=== PATIENT | female | born 1930 | race Caucasian/White ===

== ENCOUNTER 2016-10-03 12:49 | Emergency (ER) | payer MEDICARE, OTHER ==
--- NOTE | 2016-10-03 13:19 | ERPHSYRPT ---
- History of Present Illness Time Seen by Provider: 10/03/16 13:08 Source: patient, family Exam Limitations: no limitations Patient Subjective Stated Complaint: FELT SICK FOR COUPLE OF DAYS WITH URI. THIS AM GOT UP TO BATHROOM AND PASSED OUT. VOMTITED TIMES ONE Triage Nursing Assessment: TO ROOM PER EMS COT. SKIN W/D, BLANKETS UNDER PATIENT DAMP. COLOR PALE. RESP NONLABORED. A/O TIMES THREE. IV PER EMS LAF, 20 GA. SALINE AT TKO Physician History: The patient is an 86-year-old female with her daughter brought in by ambulance with syncopal episode. The patient has a productive cough for one to 2 days and a fever yesterday. She has severe arthritis. Today she wasn't feeling well and did not go to orthodox. She got up to go to the bathroom and her daughter heard her fall while she was in the bathroom. She apparently passed out while in the bathroom. She hit her left eyebrow breaking her glasses and cutting her left eyebrow. When she woke up she was very sweaty, nauseated, and then vomited once, and pale. She denies chest pain. She has states she feels much better. Her past medical history is significant for diverticulitis, hypertension, arthritis, gout, and right total hip replacement. Witnessed: unwitnessed Prior Episodes: single episode today, no prior history Timing/Duration: today Precipitating Factors: other (cough) Context: standing Loss of Consciousness: brief (seconds) Charcter of event(s): collapsed, became unresponsive Allergies/Adverse Reactions: codeine [Codeine] Allergy (Mild, Verified 10/03/16 12:58) Rash Penicillins Allergy (Unknown, Verified 10/03/16 12:58) RASH/UPSET STOMACH Sulfa (Sulfonamide Antibiotics) [Sulfa(Sulfonamide Antibiotics)] Allergy ( Unknown, Verified 10/03/16 12:58) Rash Home Medications: Simvastatin 10 mg [Zocor 10MG] 20 mg PO HS 10/10/11 [History] Amlodipine Besylate 2.5 mg PO DAILY 10/05/13 [History] Hydralazine HCl 50 mg PO TID 10/05/13 [History] Hydrocodone Bit/Acetaminophen [Hydrocodon-Acetaminoph 7.5-325] 1 tab PO Q4- 6HPRN PRN 10/05/13 [History] Lansoprazole [Prevacid 24Hr] 15 mg PO DAILY 10/05/13 [History] Allopurinol 100 mg [Zyloprim 100 mg] 100 mg PO DAILY 06/09/14 [History] Cyanocobalamin 1000 Mcg/ml [Cyanocobalamin B-12 1000 MCG/ML] 1,000 mcg IJ WEEKLY 06/09/14 [History] Carvedilol 12.5 mg [Coreg 12.5 mg] 12.5 mg PO BID 10/03/16 [History] Ergocalciferol (Vitamin D2) [Vitamin D] 50,000 unit PO WEEKLY 10/03/16 [History] Meloxicam 7.5 mg [Mobic 7.5 MG] 15 mg PO DAILY 10/03/16 [History] Spironolactone 25 mg [Aldactone 25 MG] 25 mg PO DAILY 10/03/16 [History] Hx Tetanus, Diphtheria Vaccination/Date Given: No Hx Influenza Vaccination/Date Given: Yes Hx Pneumococcal Vaccination/Date Given: Yes Immunizations Up to Date: No - Past Medical History Pertinent Past Medical History: Yes Neurological History: No Pertinent History ENT History: No Pertinent History Cardiac History: Hypertension Respiratory History: No Pertinent History Endocrine Medical History: No Pertinent History Musculoskeletal History: Osteoarthritis GI Medical History: Diverticulitis, GERD, Hernia History: Other Psycho-Social History: No Pertinent History Female Reproductive Disorders: No Pertinent History Other Medical History: R CHRISTINE 14 -15 YEARS AGO, HYSTERECTOMY - Past Surgical History Past Surgical History: Yes Neuro Surgical History: No Pertinent History Cardiac: No Pertinent History Respiratory: No Pertinent History Gastrointestinal: No Pertinent History Genitourinary: No Pertinent History Musculoskeletal: Joint Replacement Female Surgical History: Hysterectomy Other Surgical History: RIGHT HIP REPLACEMENT, BLADDER SLING - Social History Smoking Status: Never smoker Exposure to second hand smoke: No Alcohol Use: None Drug Use: none Patient Lives Alone: Yes Significant Family History: no pertinent family hx - Female History Hx Now: No - Review of Systems Constitutional: No Fever, No Chills Eyes: No Symptoms Ears, Nose, & Throat: No Symptoms Respiratory: Cough Cardiac: No Chest Pain, No Edema, No Syncope Abdominal/Gastrointestinal: Nausea, Vomiting Genitourinary Symptoms: No Dysuria Musculoskeletal: Arthralgias, Fall, Injury, No Back Pain, No Neck Pain Skin: Other (laceration) Neurological: No Dizziness, No Focal Weakness, No Sensory Changes Psychological: No Symptoms Endocrine: No Symptoms Hematologic/Lymphatic: No Symptoms Immunological/Allergic: No Symptoms All Other Systems: Reviewed and Negative Physical Exam - Nursing Vital Signs Nursing Vital Signs: Initial Vital Signs Temperature 98.3 F Temperature Source Oral Pulse Rate 77 Respiratory Rate 18 Blood Pressure [] 116/63 Pain Intensity 8 - Adan Coma Scale Best Eye Response ([place]): (4) open spontaneously Best Verbal Response ([place]): (5) oriented Best Motor Response (Adan): (6) obeys commands [place] Total: 15 - Physical Exam General Appearance: no apparent distress, alert Eye Exam: bilateral eye: normal inspection Ears, Nose, Throat Exam: normal ENT inspection, pharynx normal, moist mucous membranes Neck Exam: normal inspection, non-tender, supple, full range of motion Respiratory: wheezing Cardiovascular: regular rate/rhythm, capillary refill <2 sec, No murmur, No pulse deficit Gastrointestinal: soft, No tenderness, No distention, No mass Pelvic Exam: not done Rectal Exam: not done Back Exam: normal inspection, normal range of motion, No CVA tenderness, No vertebral tenderness Extremity Exam: normal inspection, normal range of motion, pelvis stable, No tenderness Mental Status: alert, oriented x 3, 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 activities 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 Exam: normal speech, PERRL, No facial droop Coordination/Gait: normal finger to nose Motor/Sensory: no motor deficit, no sensory deficit, no pronator drift Skin Exam: laceration (left eyebrow) SpO2 Interpretation: normal SpO2: 99 Oxygen Delivery: Room Air Procedures - Laceration/Wound Repair Left Face Wound Location: face (eyebrow) Wound Length (cm): 1 Wound's Depth, Shape: superficial Wound Explored: clean Irrigated: Yes Hibiclens Prep: Yes Wound Repaired With: Dermabond - Course EKG Interpreted by Me: RATE, Sinus Rhythm, NORMAL AXIS, NORMAL INTERVALS, NORMAL QRS, NORMAL ST-T - Radiology Exams Chest X-ray Interpretation: Interpreted by me, Negative (compared to CXR 09/03/11.) - CT Exams Cervical Spine CT Interpretation: Negative, Tele-radiologist Report, No Fracture (per Dr Epperson) Head CT Interpretation: Negative, Tele-radiologist Report, No Fracture, No/ Intracranial Hemorrhag (stable neg head per Dr Epperson) Ordered Tests: Active Orders 24 hr Category Date Time Status EKG-ER Only STAT Care 10/03/16 13:24 Active IV Insertion STAT Care 10/03/16 13:24 Active Pulse Oximetry (ED) STAT Care 10/03/16 13:24 Active Wound Care STAT Care 10/03/16 13:24 Active CERVICAL SPINE WO CONTRAST [CT] Stat Exams 10/03/16 13:25 Taken CHEST 2 VIEWS (PA AND LAT) Stat Exams 10/03/16 13:26 Taken HEAD WITHOUT CONTRAST [CT] Stat Exams 10/03/16 13:25 Taken CBC W DIFF Stat Lab 10/03/16 13:38 Completed CMP Stat Lab 10/03/16 13:38 Completed Ethyl Alcohol,Urine Stat Lab 10/03/16 15:00 Results PROTIME WITH INR Stat Lab 10/03/16 13:38 Completed TROPONIN Stat Lab 10/03/16 13:38 Completed UA Stat Lab 10/03/16 13:25 Completed Respiratory Nebulizer STAT RT 10/03/16 13:33 Completed Medication Summary Generic Name Dose Route Start Last Admin Trade Name Freq PRN Reason Stop Dose Admin Sodium Chloride 1,000 mls @ 100 mls/hr 10/03/16 13:30 10/03/16 13:32 Sodium Chloride 0.9% 1000 Ml IV 11/02/16 13:29 100 mls/hr .Q10H ARIAN Administration Discontinued Medications Generic Name Dose Route Start Last Admin Trade Name Freq PRN Reason Stop Dose Admin Albuterol Sulfate 2.5 mg 10/03/16 13:33 10/03/16 14:00 Proventil 2.5 Mg/3 Ml Neb IH 10/03/16 13:34 2.5 mg STAT ONE Administration Albuterol Sulfate Confirm 10/03/16 13:50 Proventil 2.5 Mg/3 Ml Neb Administered 10/03/16 13:51 Dose 2.5 mg IH .STK-MED ONE Methylprednisolone Sodium Succinate 125 mg 10/03/16 15:43 Solu-Medrol 125 Mg IV 10/03/16 15:44 STAT ONE Lab/Rad Data: Laboratory Result Diagrams 10/03/16 13:38 10/03/16 13:38 Laboratory Results 10/03/16 10/03/16 10/03/16 Range/Units 15:00 13:38 13:38 WBC (4.0-10.5) K/mm3 RBC (4.1-5.4) M/mm3 Hgb (12.0-16.0) gm/dl Hct (35-47) % MCV (78-100) fl MCH (26-32) pg MCHC (32-36) g/dl RDW (11.5-14.0) % Plt Count (150-450) K/mm3 MPV (6-9.5) fl Gran % (36.0-66.0) % Lymphocytes % (24.0-44.0) % Monocytes % (0.0-12.0) % Eosinophils % (0.00-5.0) % Basophils % (0.0-0.4) % Basophils # (0-0.4) INR 1.10 (0.8-3.0) Sodium (136-145) mEq/L Potassium (3.5-5.1) mEq/L Chloride (98-107) mEq/L Carbon Dioxide (21-32) mEq/L Anion Gap (5-15) MEQ/L BUN (9-20) mg/dL Creatinine (0.55-1.30) mg/dl Estimated GFR ML/MIN Glucose (70-110) MG/DL Calcium (8.5-10.1) mg/dL Total Bilirubin (0.2-1.0) mg/dL AST (15-37) U/L ALT (12-78) U/L Alkaline Phosphatase (46-116) U/L Troponin I < 0.017 (0.000-0.056) ng/ml Serum Total Protein (6.4-8.2) gm/dL Albumin (3.4-5.0) g/dL Ur Collection Type Urine Color (YELLOW) Urine Appearance (CLEAR) Urine pH Pending (5-6) Ur Specific [place] (1.005-1.025) Urine Protein (Negative) Urine Glucose (UA) (NEGATIVE) mg/dL Urine Ketones (NEGATIVE) Urine Nitrite (NEGATIVE) Urine Bilirubin (NEGATIVE) Urine Urobilinogen (0-1) mg/dL Urine WBC (Auto) (NEGATIVE) Urine RBC (Auto) (0-5) Josemanuel/ul Urine Ethyl Alcohol 1 (0.00-20) mg/dl Specimen Received 10/03/16 10/03/16 10/03/16 Range/Units 13:38 13:38 13:25 WBC 7.2 (4.0-10.5) K/mm3 RBC 3.66 L (4.1-5.4) M/mm3 Hgb 11.3 L (12.0-16.0) gm/dl Hct 35.2 (35-47) % MCV 96.2 (78-100) fl MCH 30.8 (26-32) pg MCHC 32.1 (32-36) g/dl RDW 14.8 H (11.5-14.0) % Plt Count 276 (150-450) K/mm3 MPV 10.4 H (6-9.5) fl Gran % 61.3 (36.0-66.0) % Lymphocytes % 29.6 (24.0-44.0) % Monocytes % 8.6 (0.0-12.0) % Eosinophils % 0.4 (0.00-5.0) % Basophils % 0.1 (0.0-0.4) % Basophils # 0.01 (0-0.4) INR (0.8-3.0) Sodium 136 (136-145) mEq/L Potassium 4.0 (3.5-5.1) mEq/L Chloride 98 (98-107) mEq/L Carbon Dioxide 23.2 (21-32) mEq/L Anion Gap 18.4 H (5-15) MEQ/L BUN 32 H (9-20) mg/dL Creatinine 1.49 H (0.55-1.30) mg/dl Estimated GFR 35 ML/MIN Glucose 126 H (70-110) MG/DL Calcium 9.3 (8.5-10.1) mg/dL Total Bilirubin 0.3 (0.2-1.0) mg/dL AST 19 (15-37) U/L ALT 18 (12-78) U/L Alkaline Phosphatase 64 (46-116) U/L Troponin I (0.000-0.056) ng/ml Serum Total Protein 7.4 (6.4-8.2) gm/dL Albumin 4.0 (3.4-5.0) g/dL Ur Collection Type CCMS Urine Color YELLOW (YELLOW) Urine Appearance CLEAR (CLEAR) Urine pH 5.0 (5-6) Ur Specific [place] 1.015 (1.005-1.025) Urine Protein NEGATIVE (Negative) Urine Glucose (UA) NEGATIVE (NEGATIVE) mg/dL Urine Ketones NEGATIVE (NEGATIVE) Urine Nitrite NEGATIVE (NEGATIVE) Urine Bilirubin NEGATIVE (NEGATIVE) Urine Urobilinogen 0.2 (0-1) mg/dL Urine WBC (Auto) NEGATIVE (NEGATIVE) Urine RBC (Auto) NEGATIVE (0-5) Josemanuel/ul Urine Ethyl Alcohol (0.00-20) mg/dl Specimen Received 10/03 8185 - Progress Progress: improved Counseled pt/family regarding: lab results, diagnosis, rad results - Departure Time of Disposition: 15:38 Departure Disposition: Home Clinical Impression: Syncope, Laceration, Wheezing Condition: Fair Critical Care Time: No Referrals: CONRADO VILLALTA MD [Primary Care Provider] - Additional Instructions: You had a syncopal episode at home that cause you to fall and cut her left eyebrow. We repaired your left eyebrow cut with Dermabond. You had wheezing in your lungs due to the upper respiratory infection. You were given an albuterol nebulizer treatment and Solu-Medrol 125 mg IV in the ER for the wheezing. Your given a prescription for a Z-Raffi. All of the lab tests, x-rays , and CT scans were unremarkable. Rest for the rest of the day. Follow-up as needed. Prescriptions: Azithromycin 250 mg [Zithromax 250 MG TABLET] 250 mg PO ZPACK #6 tablet
[2016-10-03] MEDS ORDERED: Sodium Chloride 0.9% 1000 ML 1,000 ML ONE (13:29)
[2016-10-03] MEDS ORDERED: Sodium Chloride 0.9% 1000 ML 1,000 ML IV SCH (13:30)
[2016-10-03] MEDS ORDERED: PROVENTIL 2.5 MG/3 ML NEB IH ONE ×2 (13:33→13:50)
[2016-10-03 13:42] LABS: BASOPHIL % 0.1 % (0.0-0.4); Eosinophil % 0.4 % (0.00-5.0); Granulocytes % 61.3 % (36.0-66.0); Lymphocytes % 29.6 % (24.0-44.0); Mean Cell Volume 96.2 fl (78-100); Mean Platelet Volume 10.4 fl (6-9.5); Monocytes % 8.6 % (0.0-12.0); Platelet Count 276 K/mm3 (150-450); Red Blood Count 3.66 M/mm3 (4.1-5.4); Red Cell Distribution Width 14.8 % (11.5-14.0); White Blood Count 7.2 K/mm3 (4.0-10.5)
[2016-10-03 14:00] LABS: INR 1.1 (0.8-3.0); PROTIME 12.3 SECONDS (9.95-12.35)
[2016-10-03 14:09] LABS: ANION GAP 18.4 MEQ/L (5-15); BILIRUBIN,TOTAL 0.3 mg/dL (0.2-1.0); Carbon Dioxide 23.2 mEq/L (21-32); Total Protein 7.4 gm/dL (6.4-8.2)
[2016-10-03 14:10] LABS: Mean Corpuscular Hemoglobin 30.8 pg (26-32)
[2016-10-03 15:10] LABS: Collection Type CCMS
[2016-10-03 15:11] LABS: COMPLETE URINE MICROSCOPIC? NO
[2016-10-03] MEDS ORDERED: solu-MEDROL 125 MG IV ONE (15:43)
[2016-10-03] MEDS ORDERED: solu-MEDROL 125 MG ONE (15:46)
[2016-10-03 16:02] VITALS: PULSE 76
[2016-10-03 16:15] VITALS: BP 115/67; O2SAT 98
--- NOTE | 2016-10-03 21:52 | XRAY ---
Indication: Fall. Comparison: June 09, 2014. PA/lateral chest hyperinflated today and clear. Heart is borderline enlarged. Descending aorta remains tortuous. Bony thorax intact again with mild osteopenia and degenerative changes. Impression: Nonacute hyperinflated chest with chronic features.
--- NOTE | 2016-10-03 21:57 | XRAY ---
Indication: Left head injury following fall. Possible loss of consciousness. Multiple contiguous axial images obtained through the cervical spine. Sagittal and coronal reformatted images obtained. Comparison: None Axial images negative for acute fracture, suspicious bony lesions, or spinal canal stenosis. Mild C4-C7 degenerative endplate spurring and mild bilateral C3-C4 degenerative facet arthropathy. Sagittal and coronal reformatted images demonstrate lordotic reversal, positional versus paraspinal spasm. Degenerative 2 mm C3 spondylolisthesis on C4. C4-C7 degenerative disc space narrowing. No acute compression fracture or jumped facet. Normal-appearing craniocervical junction. Visualized noncontrasted soft tissues including lung apices unremarkable. CT head reported separately. Impression: 1. Lordotic reversal, positional versus paraspinal spasm. 2. Multilevel degenerative disc disease including minimal grade 1 C3 degenerative spondylolisthesis. 3. Negative for acute fracture. CTDI 57.52
--- NOTE | 2016-10-03 22:05 | XRAY ---
Indication: Fall. Possible loss of consciousness. Multiple contiguous axial images obtained through the abdomen without contrast. Comparison: September 20, 2005. Stable age-appropriate global atrophy. No acute intracranial hemorrhage, abnormal extra-axial fluid collection, or mass effect. Fourth ventral is midline without hydrocephalus. Vinson-white matter differentiation preserved. Bony calvarium intact. There is now small right sphenoid sinus fluid leveling. Mastoid air cells are clear. Impression: 1. No acute intracranial abnormalities. 2. New right sphenoid sinus disease. CTDI 69.90
== END 2016-10-03 16:15 | disposition home or self-care (01) ==
LOC: ED 12:49
PROC: 0HQ1XZZ Repair Face Skin, External Approach (ICD-10-PCS; principal; 2016-10-03)
DX: R55 Syncope and collapse (principal); S01.112A Laceration without foreign body of left eyelid and periocular area, initial encounter; W01.10XA Fall on same level from slipping, tripping and stumbling with subsequent striking against unspecified object, initial encounter; Y93.89 Activity, other specified; Y92.091 Bathroom in other non-institutional residence as the place of occurrence of the external cause; I10 Essential (primary) hypertension; M19.90 Unspecified osteoarthritis, unspecified site; M10.9 Gout, unspecified; R06.2 Wheezing; Z96.641 Presence of right artificial hip joint; Z79.899 Other long term (current) drug therapy; R11.2 Nausea with vomiting, unspecified
CPT/HCPCS: 12011; 36415; 70450; 71020; 72125; 80053; 80320; 81002; 83986; 84484; 85025; 85610; 93005; 94640; 96360; 96361; 96374; 99284; J2930; A9270-GY

== ENCOUNTER 2017-04-09 18:53 | Emergency (ER) | payer MEDICARE, OTHER ==
--- NOTE | 2017-04-09 19:28 | ERPHSYRPT ---
- History of Present Illness Time Seen by Provider: 04/09/17 19:26 Source: patient, family Exam Limitations: no limitations Patient Subjective Stated Complaint: states she tripped on a step at a school program and fell face first on the concrete. denies loc Triage Nursing Assessment: to room per ems cot. skin w/d, color normal. large abrasion noted to nose and upper lip with moderate swelling. also has abrasion to 5th digit left hand. Physician History: states she tripped on a step at a school program and fell face first on the concrete. denies loc Occurred: just prior to arrival Reason for Fall: tripped Injuries/Pain Location: head, face Loss of Consciousness: no loss of consciousness Severity of Pain-Max: moderate Severity of Pain-Current: moderate Modifying Factors: Improves With: cold therapy Associated Symptoms (Fall): denies symptoms Allergies/Adverse Reactions: codeine [Codeine] Allergy (Mild, Verified 04/09/17 19:01) Rash Penicillins Allergy (Unknown, Verified 04/09/17 19:01) RASH/UPSET STOMACH Sulfa (Sulfonamide Antibiotics) [Sulfa(Sulfonamide Antibiotics)] Allergy ( Unknown, Verified 04/09/17 19:01) Rash Home Medications: Allopurinol 100 mg [Zyloprim 100 mg] 100 mg PO DAILY 04/09/17 [History] Amlodipine Besylate 5 mg PO DAILY 04/09/17 [History] Carvedilol 12.5 mg [Coreg 12.5 mg] 12.5 mg PO BID 04/09/17 [History] Clonidine HCl 0.1 mg [Catapres 0.1 MG] 0.1 mg PO TID 04/09/17 [History] Cyanocobalamin 1000 Mcg/ml [Cyanocobalamin B-12 1000 MCG/ML] 1,000 mcg IJ WEEKLY 04/09/17 [History] Ergocalciferol (Vitamin D2) [Vitamin D2] 50,000 iu PO UD 04/09/17 [History] HydrALAzine HCL 25 MG TAB [Apresoline 25 MG TABLET] 50 mg PO BID 04/09/17 [History] Hydrochlorothiazide 25 mg [hydroDIURIL 25 MG] 25 mg PO DAILY 04/09/17 [ History] Hydrocodone Bit/Acetaminophen [[place] 7.5-325 Tablet] 1 each PO Q6H PRN PRN 04/09 [History] Lansoprazole [Prevacid] 15 mg PO DAILY 04/09/17 [History] Magnesium Oxide 400 mg [Mag-Ox 400] 400 mg PO DAILY 04/09/17 [History] Meloxicam 7.5 mg PO DAILY 04/09/17 [History] Sennosides/Docusate Sodium [Senokot-S Tablet] 1 each PO BID 04/09/17 [History] Simvastatin 20Mg [Zocor 20Mg] 20 mg PO DAILY 04/09/17 [History] Spironolactone 25 mg [Aldactone 25 MG] 25 mg PO BID 04/09/17 [History] Valsartan/Hydrochlorothiazide [Diovan Hct 320-12.5 mg Tab] 1 each PO DAILY 04/09 [History] Hx Tetanus, Diphtheria Vaccination/Date Given: No Hx Influenza Vaccination/Date Given: Yes Hx Pneumococcal Vaccination/Date Given: Yes - Review of Systems Constitutional: No Symptoms Eyes: No Symptoms Ears, Nose, & Throat: Other (swollen nose) - Past Medical History Pertinent Past Medical History: Yes Neurological History: No Pertinent History ENT History: No Pertinent History Cardiac History: Hypertension Respiratory History: No Pertinent History Endocrine Medical History: No Pertinent History Musculoskeletal History: Osteoarthritis GI Medical History: Diverticulitis, GERD, Hernia History: Other Psycho-Social History: No Pertinent History Female Reproductive Disorders: No Pertinent History Other Medical History: R CHRISTINE 14 -15 YEARS AGO, HYSTERECTOMY - Past Surgical History Past Surgical History: Yes Neuro Surgical History: No Pertinent History Cardiac: No Pertinent History Respiratory: No Pertinent History Gastrointestinal: No Pertinent History Genitourinary: No Pertinent History Musculoskeletal: Joint Replacement Female Surgical History: Hysterectomy Other Surgical History: RIGHT HIP REPLACEMENT, BLADDER SLING - Social History Smoking Status: Never smoker Exposure to second hand smoke: No Alcohol Use: None Drug Use: none Patient Lives Alone: No Significant Family History: no pertinent family hx - Female History Hx Now: No - Nursing Vital Signs Nursing Vital Signs: Initial Vital Signs Temperature 97.3 F 04/09/17 18:54 Pulse Rate 73 04/09/17 18:54 Respiratory Rate 18 04/09/17 18:54 Blood Pressure 159/73 04/09/17 18:54 O2 Sat by Pulse Oximetry 94 L 04/09/17 18:54 Pain Scale Pain Intensity 5 - Adan Coma Score Best Eye Response ([place]): (4) open spontaneously Best Verbal Response (Adan): (5) oriented Best Motor Response (Adan): (6) obeys commands Adan Total: 15 - Physical Exam General Appearance: no apparent distress, alert Head Injury: no evidence of injury Eye Exam: PERRL/EOMI ENT Exam: airway nml, clotted nasal blood Neck Exam: normal inspection, No tenderness Respiratory/Chest Exam: normal breath sounds, No chest tenderness, No respiratory distress Cardiovascular Exam: normal heart sounds, regular rate/rhythm Gastrointestinal Exam: soft, No tenderness, No distention, No guarding, No ecchymosis Back Exam: normal inspection, No vertebral tenderness Extremity Exam: normal inspection, normal range of motion, pelvis stable, No deformities Neurologic Exam: alert, oriented x 3, cooperative, sensation nml, No motor deficits Skin Exam: normal color, warm, dry SpO2: 94 Oxygen Delivery: Room Air - Radiology Exams Facial X-ray Interpretation: Reviewed by me, No Fracture - CT Exams Head CT Interpretation: Tele-radiologist Report, No Fracture, No/Intracranial Hemorrhag Ordered Tests: Active Orders 24 hr Category Date Time Status FACIAL BONES (MINIMUM 3 VIEWS) Stat Exams 04/09/17 Taken HEAD WITHOUT CONTRAST [CT] Stat Exams 04/09/17 19:23 Taken NASAL BONES (MIN 3 VIEWS) Stat Exams 04/09/17 Taken - Progress Progress: improved, pain not gone completely Counseled pt/family regarding: diagnosis, need for follow-up, rad results - Departure Time of Disposition: 20:27 Departure Disposition: Home Clinical Impression: Fall (on)(from) incline, initial encounter Nasal septum fracture Qualifiers: Encounter type: initial encounter Fracture type: closed Qualified Code(s): S02.2XXA - Fracture of nasal bones, initial encounter for closed fracture Condition: Stable Critical Care Time: Yes Critical Care Time(excluding separately billable procedures): 30-74 minutes Referrals: CONRADO VILLALTA MD [Primary Care Provider] - Instructions: Prevent Falls, Contusion Additional Instructions: Please follow the instructions given to you. Please take your medication as prescribed if given. If symptoms recur or get worse, come back to the emergency room if you cannot reach your primary care physician, or call your primary care physician for an appointment. Again if your symptoms get worse, come back to the emergency room. Thanks for visiting emergency room, and let us take care of you.
[2017-04-09] MEDS ORDERED: TORAdol 30 mg Injection IM ONE (20:28)
[2017-04-09] MEDS ORDERED: TORAdol 30 mg Injection ONE (20:28)
[2017-04-09 21:05] VITALS: BP 149/72; PULSE 72; O2SAT 95
--- NOTE | 2017-04-09 22:33 | XRAY ---
Indication: Frontal headache/pain following fall. Multiple contiguous axial images obtained through the head without contrast. Comparison: October 03, 2016. Stable age-appropriate global atrophy. No acute intracranial hemorrhage, abnormal extra-axial fluid collection, or mass effect. Fourth ventricle is midline without hydrocephalus. Vinson-white matter differentiation preserved. Bony calvarium intact. Tiny fluid leveling in the right sphenoid sinus. Mastoid air cells clear. Impression: Stable nonacute senile brain. Minimal paranasal sinus disease. Comment: Preliminary interpretation was made by [facility]. No discrepancy. CTDI 49.27
--- NOTE | 2017-04-09 22:35 | XRAY ---
Indication: Pain following fall. Comparison: None 4 views of the facial bones demonstrates nondisplaced fracture involving the tip of the nasal bone and minimally displaced fracture involving the spine of the maxilla. Paranasal sinuses clear. Incidental moderate spinal degenerative changes.
--- NOTE | 2017-04-09 22:35 | XRAY ---
Indication: Pain following fall. Comparison: None 3 views of the nasal bone demonstrates nondisplaced fracture involving the tip of the nasal bone and minimally displaced fracture involving the spine of the maxilla with soft tissue swelling. Paranasal sinuses clear.
== END 2017-04-09 21:03 | disposition home or self-care (01) ==
LOC: ED 18:53
DX: S02.2XXA Fracture of nasal bones, initial encounter for closed fracture (principal); W10.8XXA Fall (on) (from) other stairs and steps, initial encounter; Y92.218 Other school as the place of occurrence of the external cause; Z79.899 Other long term (current) drug therapy; Z79.891 Long term (current) use of opiate analgesic
CPT/HCPCS: 70150; 70160; 70450; 96372; 96374; 99283; 99284; J1885

== ENCOUNTER 2018-03-05 19:11 | Emergency (ER) | payer MEDICARE, OTHER ==
[2018-03-05] MEDS ORDERED: Hydromorphone 1 mg/ml Ampule IV ONE (19:31)
[2018-03-05] MEDS ORDERED: Zofran 4 MG/2 ML VIAL IV ONE ×2 (19:31→21:56)
[2018-03-05] MEDS ORDERED: Sodium Chloride 0.9% 1000 ML 1,000 ML IV STA (19:31)
[2018-03-05] MEDS ORDERED: Zofran 4 MG/2 ML VIAL ONE ×2 (19:43→22:00)
[2018-03-05] MEDS ORDERED: Sodium Chloride 0.9% 1000 ML 1,000 ML ONE (19:44)
[2018-03-05] MEDS ORDERED: Hydromorphone 1 mg/ml Ampule ONE (19:44)
[2018-03-05 19:58] LABS: BASOPHIL % 0.2 % (0.0-0.4); Basophil (Absolute #) 0.02 (0-0.4); Eosinophil % 1.1 % (0.00-5.0); Granulocyte Absolute (ANC) 4.46 (1.4-6.9); Granulocytes % 51.3 % (36.0-66.0); Hematocrit 38.5 % (35-47); Lymphocyte (Absolute #) 3.41 (1.0-4.6); Lymphocytes % 39.2 % (24.0-44.0); Mean Cell Volume 97.2 fl (78-100); Mean Corpuscular Hemoglobin 32.8 pg (26-32); Mean Corpuscular Hgb Concent. 33.8 g/dl (32-36); Mean Platelet Volume 9.4 fl (6-9.5); Monocyte (Absolute #) 0.71 (0.0-1.3); Monocytes % 8.2 % (0.0-12.0); Platelet Count 328 K/mm3 (150-450); Red Blood Count 3.96 M/mm3 (4.1-5.4); Red Cell Distribution Width 14.1 % (11.5-14.0); White Blood Count 8.7 K/mm3 (4.0-10.5)
[2018-03-05 20:13] LABS: ALBUMIN 4.5 g/dL (3.5-5.0); ANION GAP 16.3 MEQ/L (5-15); BILIRUBIN,TOTAL 0.7 mg/dL (0.2-1.3); Calcium 10.2 mg/dL (8.4-10.2); Creatinine 1 0.99 mg/dL (0.52-1.04); Potassium 3.9 mmol/L (3.5-5.1); Total Protein 7.3 g/dL (6.3-8.2)
[2018-03-05 20:14] VITALS: O2SAT 97
--- NOTE | 2018-03-05 20:14 | ERPHSYRPT ---
- History of Present Illness Time Seen by Provider: 03/05/18 19:20 Historian: patient, family Patient Subjective Stated Complaint: pt reports abd pain with nausea states she has history of diverticulitis. reports pain started today along with 3 episodes of diarrhea. pt also reports recent visit to ortho in [place] in regards to right knee pain, they believe she needs a replacement but would like her to see a neuro first to resolve some underlying nerve pain. Triage Nursing Assessment: pt is aox3, appears in pain, pupils perrl, resps easy and non labored, pt afebrile, radial pulses strong and equal, abd is soft and tender. bowel sounds present x4 quads. pt skin pale warm dry. Physician History: 87 y/o white female presents with left lower quad abd pain and associated diarrhea X3 that began this afternoon. pt has a h/o diverticulitis. Timing/Duration: today Activities at Onset: none Quality: aching Abdominal Pain Onset Location: LLQ Pain Radiation: LLQ Severity of Pain-Max: moderate Severity of Pain-Current: moderate Modifying Factors: Improves With: palpation Associated Symptoms: diarrhea, loss of appetite, nausea Previous symptoms: same symptoms as today Allergies/Adverse Reactions: codeine [Codeine] Allergy (Mild, Verified 03/05/18 19:32) Rash Penicillins Allergy (Unknown, Verified 03/05/18 19:32) RASH/UPSET STOMACH Sulfa (Sulfonamide Antibiotics) [Sulfa(Sulfonamide Antibiotics)] Allergy ( Unknown, Verified 03/05/18 19:32) Rash Home Medications: Allopurinol 100 mg [Zyloprim 100 mg] 100 mg PO DAILY 04/09/17 [History] Amlodipine Besylate 5 mg PO DAILY 04/09/17 [History] Carvedilol 12.5 mg [Coreg 12.5 mg] 12.5 mg PO BID 04/09/17 [History] Clonidine HCl 0.1 mg [Catapres 0.1 MG] 0.1 mg PO TID 04/09/17 [History] Cyanocobalamin 1000 Mcg/ml [Cyanocobalamin B-12 1000 MCG/ML] 1,000 mcg IJ WEEKLY 04/09/17 [History] Ergocalciferol (Vitamin D2) [Vitamin D2] 50,000 iu PO UD 04/09/17 [History] HydrALAzine HCL 25 MG TAB [Apresoline 25 MG TABLET] 50 mg PO BID 04/09/17 [History] Hydrochlorothiazide 25 mg [hydroDIURIL 25 MG] 25 mg PO DAILY 04/09/17 [ History] Hydrocodone Bit/Acetaminophen [[place] 7.5-325 Tablet] 1 each PO Q6H PRN PRN 04/09 [History] Lansoprazole [Prevacid] 15 mg PO DAILY 04/09/17 [History] Magnesium Oxide 400 mg [Mag-Ox 400] 400 mg PO DAILY 04/09/17 [History] Meloxicam 7.5 mg PO DAILY 04/09/17 [History] Sennosides/Docusate Sodium [Senokot-S Tablet] 1 each PO BID 04/09/17 [History] Simvastatin 20Mg [Zocor 20Mg] 20 mg PO DAILY 04/09/17 [History] Spironolactone 25 mg [Aldactone 25 MG] 25 mg PO DAILY 04/09/17 [History] Valsartan/Hydrochlorothiazide [Diovan Hct 320-12.5 mg Tab] 1 each PO DAILY 04/09 [History] Hx Tetanus, Diphtheria Vaccination/Date Given: Yes Hx Influenza Vaccination/Date Given: No Hx Pneumococcal Vaccination/Date Given: Yes Immunizations Up to Date: Yes - Review of Systems Constitutional: No Symptoms, No Fever, No Chills Eyes: No Symptoms, No Discharge, No Itchy Ears, Nose, & Throat: No Symptoms, No Ear Pain Respiratory: No Symptoms, No Cough, No Dyspnea, No Stridor, No Wheezing Cardiac: No Symptoms, No Chest Pain, No Palpitations, No Syncope Abdominal/Gastrointestinal: Abdominal Pain (llq), No Vomiting Genitourinary Symptoms: No Symptoms, No Dysuria, No Frequency, No Hematuria Musculoskeletal: No Symptoms Skin: No Symptoms Neurological: No Symptoms, No Dizziness, No Headache Psychological: No Symptoms Endocrine: No Symptoms Hematologic/Lymphatic: No Symptoms Immunological/Allergic: No Symptoms All Other Systems: Reviewed and Negative - Past Medical History Pertinent Past Medical History: Yes Neurological History: No Pertinent History ENT History: No Pertinent History Cardiac History: Hypertension Respiratory History: No Pertinent History Endocrine Medical History: No Pertinent History Musculoskeletal History: Osteoarthritis GI Medical History: Diverticulitis, GERD, Hernia History: Other Psycho-Social History: No Pertinent History Female Reproductive Disorders: No Pertinent History Other Medical History: R CHRISTINE 14 -15 YEARS AGO, HYSTERECTOMY - Past Surgical History Past Surgical History: Yes Neuro Surgical History: No Pertinent History Cardiac: No Pertinent History Respiratory: No Pertinent History Gastrointestinal: No Pertinent History Genitourinary: No Pertinent History Musculoskeletal: Joint Replacement Female Surgical History: Hysterectomy Other Surgical History: RIGHT HIP REPLACEMENT, BLADDER SLING - Social History Smoking Status: Never smoker Exposure to second hand smoke: No Alcohol Use: None Drug Use: none Patient Lives Alone: No Significant Family History: no pertinent family hx - Female History Hx Now: No - Nursing Vital Signs Nursing Vital Signs: Initial Vital Signs Temperature 99.7 F 03/05/18 19:24 Pulse Rate 96 H 03/05/18 19:24 Respiratory Rate 20 03/05/18 19:24 Blood Pressure 169/94 03/05/18 19:24 O2 Sat by Pulse Oximetry 97 03/05/18 19:24 Pain Scale Pain Intensity 10 - Physical Exam General Appearance: mild distress, alert, anxiety Eye Exam: PERRL/EOMI, eyes nml inspection Ears, Nose, Throat Exam: normal ENT inspection, moist mucous membranes Neck Exam: normal inspection, non-tender, supple, full range of motion Respiratory Exam: normal breath sounds, lungs clear, airway intact, No chest tenderness, No respiratory distress, No accessory muscle use, No rhonchi, No wheezing, No stridor Cardiovascular Exam: regular rate/rhythm, normal heart sounds, normal peripheral pulses Gastrointestinal/Abdomen Exam: soft, normal bowel sounds, tenderness (llq), guarding, No rebound Pelvic Exam: not done Rectal Exam: not done Back Exam: normal inspection, normal range of motion, No CVA tenderness, No vertebral tenderness Extremity Exam: pelvis stable Neurologic Exam: alert, oriented x 3, 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 she is not as mobile as usual) Skin Exam: normal color, warm, dry Lymphatic Exam: No adenopathy SpO2 Interpretation: normal SpO2: 97 Oxygen Delivery: Room Air - Course Nursing assessment & vital signs reviewed: Yes Ordered Tests: Active Orders 24 hr Category Date Time Status Clean Catch Urine Specimen STAT Care 03/05/18 19:31 Active IV Insertion STAT Care 03/05/18 19:31 Active cath [Cath for Specimen-Straight] STAT Care 03/05/18 20:24 Active ABDOMEN AND PELVIS W CONTRAST [CT] Stat Exams 03/05/18 19:32 Taken AMYLASE Stat Lab 03/05/18 17:30 Completed CBC W DIFF Stat Lab 03/05/18 17:30 Completed CMP Stat Lab 03/05/18 17:30 Completed CULTURE,URINE Stat Lab 03/05/18 20:00 Received UA W/RFX UR CULTURE Stat Lab 03/05/18 20:00 Completed Medication Summary Generic Name Dose Route Start Last Admin Trade Name Freq PRN Reason Stop Dose Admin Metronidazole 500 mg 03/05/18 21:57 Flagyl 500 Mg PO 03/05/18 21:58 STAT ONE Discontinued Medications Generic Name Dose Route Start Last Admin Trade Name Freq PRN Reason Stop Dose Admin Ciprofloxacin 500 mg 03/05/18 21:56 Cipro 500 Mg PO 03/05/18 21:57 STAT ONE Hydromorphone HCl 0.5 mg 03/05/18 19:31 03/05/18 19:46 Hydromorphone 1 Mg/Ml Ampule IV 03/05/18 19:32 0.5 mg STAT ONE Administration Hydromorphone HCl Confirm 03/05/18 19:44 Hydromorphone 1 Mg/Ml Ampule Administered 03/05/18 19:45 Dose 1 mg .ROUTE .STK-MED ONE Sodium Chloride 1,000 mls @ 999 mls/hr 03/05/18 19:31 03/05/18 19:46 Sodium Chloride 0.9% 1000 Ml IV 03/05/18 20:31 999 mls/hr .Q1H1M STA Administration Sodium Chloride Confirm 03/05/18 19:44 Sodium Chloride 0.9% 1000 Ml Administered 03/05/18 19:45 Dose 1,000 mls @ ud .ROUTE .STK-MED ONE Ondansetron HCl 4 mg 03/05/18 19:31 03/05/18 19:46 Zofran 4 Mg/2 Ml Vial IV 03/05/18 19:32 4 mg STAT ONE Administration Ondansetron HCl Confirm 03/05/18 19:43 Zofran 4 Mg/2 Ml Vial Administered 03/05/18 19:44 Dose 4 mg .ROUTE .STK-MED ONE Ondansetron HCl 4 mg 03/05/18 21:56 Zofran 4 Mg/2 Ml Vial IV 03/05/18 21:57 STAT ONE Lab/Rad Data: Laboratory Result Diagrams 03/05/18 17:30 03/05/18 17:30 Laboratory Results 03/05/18 03/05/18 03/05/18 Range/Units 20:00 17:30 17:30 WBC 8.7 (4.0-10.5) K/mm3 RBC 3.96 L (4.1-5.4) M/mm3 Hgb 13.0 (12.0-16.0) gm/dl Hct 38.5 (35-47) % MCV 97.2 (78-100) fl MCH 32.8 H (26-32) pg MCHC 33.8 (32-36) g/dl RDW 14.1 H (11.5-14.0) % Plt Count 328 (150-450) K/mm3 MPV 9.4 (6-9.5) fl Gran % 51.3 (36.0-66.0) % Eos # (Auto) 0.10 (0-0.5) Absolute Lymphs (auto) 3.41 (1.0-4.6) Absolute Monos (auto) 0.71 (0.0-1.3) Lymphocytes % 39.2 (24.0-44.0) % Monocytes % 8.2 (0.0-12.0) % Eosinophils % 1.1 (0.00-5.0) % Basophils % 0.2 (0.0-0.4) % Absolute Granulocytes 4.46 (1.4-6.9) Basophils # 0.02 (0-0.4) Sodium 135 L (137-145) mmol/L Potassium 3.9 (3.5-5.1) mmol/L Chloride 97 L (98-107) mmol/L Carbon Dioxide 25 (22-30) mmol/L Anion Gap 16.3 H (5-15) MEQ/L BUN 38 H (7-17) mg/dL Creatinine 0.99 (0.52-1.04) mg/dL Estimated GFR 56.7 ML/MIN Glucose 97 (74-106) mg/dL Calcium 10.2 (8.4-10.2) mg/dL Total Bilirubin 0.70 (0.2-1.3) mg/dL AST 28 (14-36) U/L ALT 18 (0-35) U/L Alkaline Phosphatase 51 (38-126) U/L Serum Total Protein 7.3 (6.3-8.2) g/dL Albumin 4.5 (3.5-5.0) g/dL Amylase 62 (30-110) U/L Urine Color YELLOW (YELLOW) Urine Appearance SLIGHTLY CLOUDY (CLEAR) Urine pH 5.0 (5-6) Ur Specific [place] 1.013 (1.005-1.025) Urine Protein NEGATIVE (Negative) Urine Ketones NEGATIVE (NEGATIVE) Urine Blood NEGATIVE (0-5) Josemanuel/ul Urine Nitrite NEGATIVE (NEGATIVE) Urine Bilirubin NEGATIVE (NEGATIVE) Urine Urobilinogen NEGATIVE (0-1) mg/dL Ur Leukocyte Esterase TRACE (NEGATIVE) Urine WBC (Auto) 6-10 (0-5) /HPF Urine RBC (Auto) 0-2 (0-2) /HPF U Epithel Cells (Auto) RARE (FEW) /HPF Urine Bacteria (Auto) FEW (NEGATIVE) /HPF Urine Mucus (Auto) SLIGHT (NEGATIVE) /HPF Urine Culture Reflexed YES (NO) Urine Glucose NEGATIVE (NEGATIVE) mg/dL ct abd/pelvis sigmoid diverticulosis no diverticulitis - Progress Progress: improved, re-examined Progress Note: 03/05/18 21:58 pt has left lq abd pain, diarrhea, low grade fever and early, mild uti. i will tx pt for colitis and uti. Counseled pt/family regarding: lab results, diagnosis, need for follow-up, rad results - Departure Time of Disposition: 22:00 Departure Disposition: Home Clinical Impression: Colitis, UTI (urinary tract infection) Condition: Stable Critical Care Time: No Referrals: CONRADO VILLALTA MD [Primary Care Provider] - Additional Instructions: drink plenty of fluids. follow up with your primary doctor tomorrow for further management. Prescriptions: Ciprofloxacin [Cipro 500 MG] 500 mg PO BID #14 tablet Metronidazole 500 mg [Flagyl 500 MG] 500 mg PO TID #21 tablet
[2018-03-05 21:01] LABS: Appearance SLIGHTLY CLOUDY (CLEAR); Bilirubin NEGATIVE (NEGATIVE); Blood NEGATIVE Ery/ul (0-5); Glucose NEGATIVE (NEGATIVE); Ketones NEGATIVE (NEGATIVE); Leukocyte Esterase TRACE (NEGATIVE); Nitrite NEGATIVE (NEGATIVE); Protein,Urine Dip NEGATIVE (Negative); Specific Gravity 1.013 (1.005-1.025); Urobilinogen NEGATIVE mg/dL (0-1)
[2018-03-05] MEDS ORDERED: Cipro 500 MG PO ONE (21:56)
[2018-03-05] MEDS ORDERED: Flagyl 500 MG PO ONE (21:57)
[2018-03-05] MEDS ORDERED: Flagyl 500 MG ONE (22:00)
[2018-03-05] MEDS ORDERED: Cipro 500 MG ONE (22:00)
[2018-03-05 22:23] VITALS: BP 114/92; PULSE 98
--- NOTE | 2018-03-06 08:42 | XRAY ---
Indication: Left lower quadrant pain, nausea, and diarrhea. History GERD and diverticulitis. Multiple contiguous axial images obtained through the abdomen and pelvis using 80 cc Isovue 370 contrast. Comparison: June 09, 2014. Lung bases again demonstrates mild bibasilar atelectasis/scarring. No infiltrate or effusion. Heart remains borderline enlarged. Stable small hiatal hernia. Noncontrasted stomach and bowel loops appear nonobstructed. Normal appendix. Stable sigmoid diverticulosis without diverticulitis. No free fluid/air. Stable hepatic/splenic calcified granulomas, bilateral renal cysts, partial duplication of the right ureters, and hysterectomy. Remaining liver, gallbladder, pancreas, spleen, adrenal glands, kidneys, ureters, and bladder appear unremarkable. There remains mild aortoiliac calcifications. No AAA or pathologic retroperitoneal lymphadenopathy. Osseous structures intact again with mild/moderate multilevel degenerative spondylosis and right hip arthroplasty. Stable small fatty umbilical hernia. Impression: 1. Stable sigmoid diverticulosis, bilateral renal cysts, partial duplication right ureters, small hiatal hernia, and small fatty umbilical hernia. 2. No new or acute intra-abdominal/pelvic abnormalities. CT DI 23.48
== END 2018-03-05 22:25 | disposition home or self-care (01) ==
LOC: ED 19:11
DX: K52.9 Noninfective gastroenteritis and colitis, unspecified (principal); N39.0 Urinary tract infection, site not specified; R11.0 Nausea; Z79.899 Other long term (current) drug therapy; R10.32 Left lower quadrant pain
CPT/HCPCS: 36000; 36415; 74177; 80053; 81001; 82150; 85025; 87077; 87086; 87186; 96360; 96374; 96375; 96376; 99284; P9612; J1170; J2405; A9270-GY

== ENCOUNTER 2018-03-08 09:59 | Inpatient (IN) | payer MEDICARE, OTHER ==
[2018-03-08] MEDS ORDERED: Phenergan 25 MG INJ IV PRN (11:11)
--- NOTE | 2018-03-08 11:18 | PCM.HP ---
History of Present Illness - Chief Complaint Chief Complaint: abdominal pain for 3 days History of Present Illness: is a 87 year old female was seen in ER for abdominal pain and was diagnosed with colitis and sent home with cipro and flagyl Orally. She started having more nausea and vomiting and unable to keep anything down. - Review of Systems Constitutional: Fever, Chills Eyes: No Symptoms Ears, Nose, & Throat: No Symptoms Respiratory: No Cough, No Short Of Breath Cardiac: No Chest Pain, No Edema, No Syncope Abdominal/Gastrointestinal: Abdominal Pain, Nausea, Vomiting, Diarrhea Genitourinary Symptoms: No Dysuria Musculoskeletal: No Back Pain, No Neck Pain Skin: No Rash Neurological: No Dizziness, No Focal Weakness, No Sensory Changes Psychological: No Symptoms Endocrine: No Symptoms Hematologic/Lymphatic: No Symptoms Immunological/Allergic: No Symptoms Medications & Allergies Home Medications: Home Medication List Allopurinol 100 mg [Zyloprim 100 mg] 100 mg PO DAILY 04/09/17 [History Confirmed 03/05/18] Amlodipine Besylate 5 mg PO DAILY 04/09/17 [History Confirmed 03/05/18] Carvedilol 12.5 mg [Coreg 12.5 mg] 12.5 mg PO BID 04/09/17 [History Confirmed 03/05/18] Clonidine HCl 0.1 mg [Catapres 0.1 MG] 0.1 mg PO TID 04/09/17 [History Confirmed 03/05/18] Cyanocobalamin 1000 Mcg/ml [Cyanocobalamin B-12 1000 MCG/ML] 1,000 mcg IJ WEEKLY 04/09/17 [History Confirmed 03/05/18] Ergocalciferol (Vitamin D2) [Vitamin D2] 50,000 iu PO UD 04/09/17 [History Confirmed 03/05/18] HydrALAzine HCL 25 MG TAB [Apresoline 25 MG TABLET] 50 mg PO BID 04/09/17 [History Confirmed 03/05/18] Hydrochlorothiazide 25 mg [hydroDIURIL 25 MG] 25 mg PO DAILY 04/09/17 [ History Confirmed 03/05/18] Hydrocodone Bit/Acetaminophen [[place] 7.5-325 Tablet] 1 each PO Q6H PRN PRN 04/09 [History Confirmed 03/05/18] Lansoprazole [Prevacid] 15 mg PO DAILY 04/09/17 [History Confirmed 03/05/18] Magnesium Oxide 400 mg [Mag-Ox 400] 400 mg PO DAILY 04/09/17 [History Confirmed 03/05/18] Meloxicam 7.5 mg PO DAILY 04/09/17 [History Confirmed 03/05/18] Sennosides/Docusate Sodium [Senokot-S Tablet] 1 each PO BID 04/09/17 [History Confirmed 03/05/18] Simvastatin 20Mg [Zocor 20Mg] 20 mg PO DAILY 04/09/17 [History Confirmed ] Spironolactone 25 mg [Aldactone 25 MG] 25 mg PO DAILY 04/09/17 [History Confirmed 03/05/18] Valsartan/Hydrochlorothiazide [Diovan Hct 320-12.5 mg Tab] 1 each PO DAILY 04/09 [History Confirmed 03/05/18] Ciprofloxacin [Cipro 500 MG] 500 mg PO BID #14 tablet 03/05/18 [Rx] Metronidazole 500 mg [Flagyl 500 MG] 500 mg PO TID #21 tablet 03/05/18 [Rx ] Allergies/Adverse Reactions: Allergies Allergy/AdvReac Type Severity Reaction Status Date / Time codeine [Codeine] Allergy Mild Rash Verified 03/05/18 19:32 Penicillins Allergy Unknown RASH/UPSET Verified 03/05/18 19:32 STOMACH Sulfa (Sulfonamide Allergy Unknown Rash Verified 03/05/18 19:32 Antibiotics) [Sulfa(Sulfonamide Antibiotics)] - Past Medical History Past Medical History: Yes Neurological History: No Pertinent History ENT History: No Pertinent History Cardiac History: Hypertension Respiratory History: No Pertinent History Endocrine Medical History: No Pertinent History Musculoskelatal History: Osteoarthritis GI Medical History: Diverticulitis, GERD, Hernia History: Other Pyscho-Social History: No Pertinent History Reproductive Disorders: No Pertinent History Comment: R CHRISTINE 14 -15 YEARS AGO, HYSTERECTOMY - Past Surgical History Past Surgical History: Yes Neuro Surgical History: No Pertinent History Cardiac History: No Pertinent History Respiratory Surgery: No Pertinent History GI Surgical History: No Pertinent History Genitourinary Surgical Hx: No Pertinent History Musculskeletal Surgical Hx: Joint Replacement Female Surgical History: Hysterectomy Other Surgical History: RIGHT HIP REPLACEMENT, BLADDER SLING - Social History Smoking Status: Never smoker Exposure to second hand smoke: No Alcohol: None Drug Use: none Significant Family History: no pertinent family hx - Physical Exam General Appearance: no apparent distress, alert Neurologic Exam: alert, oriented x 3, cooperative, normal mood/affect, nml cerebellar function, nml station & gait, sensation nml, No motor deficits Eye Exam: PERRL/EOMI, eyes nml inspection Ears, Nose, Throat Exam: normal ENT inspection, TMs normal, pharynx normal, moist mucous membranes Neck Exam: normal inspection, non-tender, supple, full range of motion Respiratory Exam: normal breath sounds, lungs clear, No respiratory distress Cardiovascular Exam: regular rate/rhythm, normal heart sounds, normal peripheral pulses Gastrointestinal/Abdomen Exam: tenderness, distention, No mass Back Exam: normal inspection, normal range of motion, No CVA tenderness, No vertebral tenderness Extremity Exam: normal inspection, normal range of motion, pelvis stable Skin Exam: normal color, warm, dry, No rash Lymphatic Exam: No adenopathy Results - Radiology Impressions Radiology Exams & Impressions: Radiology Procedures Category Date Time Status ABDOMEN AND PELVIS W/0 CONTRAS [CT] Stat Exams 03/08/18 11:11 Ordered Assessment/Plan (1) Colitis Current Visit: Yes Status: Acute Code(s): K52.9 - NONINFECTIVE GASTROENTERITIS AND COLITIS, UNSPECIFIED (2) Diverticulitis of sigmoid colon Current Visit: Yes Status: Acute Code(s): K57.32 - DVTRCLI OF LG INT W/O PERFORATION OR ABSCESS W/O BLEEDING (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
[2018-03-08] MEDS: MORPHINE SULFATE 4 MG INJ IV PRN (11:35)
[2018-03-08] MEDS: FLAGYL 500 MG IVPB 500 MG/100 ML BAG IV SCH ×3 (11:35→23:28)
[2018-03-08] MEDS: Zofran 4 MG/2 ML VIAL IV PRN (11:35)
[2018-03-08 11:36] LABS: BASOPHIL % 0.1 % (0.0-0.4); Basophil (Absolute #) 0.01 (0-0.4); Eosinophil % 0.2 % (0.00-5.0); Eosinophil (Absolute #) 0.03 (0-0.5); Granulocytes % 71.5 % (36.0-66.0); Hematocrit 36.9 % (35-47); Hemoglobin 12.6 gm/dl (12.0-16.0); Lymphocyte (Absolute #) 2.66 (1.0-4.6); Lymphocytes % 20.7 % (24.0-44.0); Mean Cell Volume 96.3 fl (78-100); Mean Corpuscular Hgb Concent. 34.1 g/dl (32-36); Mean Platelet Volume 10.1 fl (6-9.5); Monocyte (Absolute #) 0.96 (0.0-1.3); Monocytes % 7.5 % (0.0-12.0); Platelet Count 314 K/mm3 (150-450); Red Blood Count 3.83 M/mm3 (4.1-5.4); Red Cell Distribution Width 13.8 % (11.5-14.0); White Blood Count 12.9 K/mm3 (4.0-10.5)
[2018-03-08] MEDS: Sodium Chloride 0.9% 1000 ML 1,000 ML IV SCH ×2 (11:36→21:49)
[2018-03-08 11:37] LABS: Mean Corpuscular Hemoglobin 32.8 pg (26-32)
[2018-03-08 11:40] LABS: ALBUMIN 3.6 g/dL (3.5-5.0); ALKALINE PHOSPHATASE 46 U/L (38-126); AMYLASE 41 U/L (30-110); ANION GAP 15.4 MEQ/L (5-15); BLOOD UREA NITROGEN 27 mg/dL (7-17); CHLORIDE 90 mmol/L (98-107); Calcium 9.4 mg/dL (8.4-10.2); Carbon Dioxide 26 mmol/L (22-30); Glucose 123 mg/dL (74-106); LIPASE 91 U/L (23-300); Potassium 3.8 mmol/L (3.5-5.1); SGOT/AST 21 U/L (14-36); SGPT/ALT 16 U/L (0-35); SODIUM 128 mmol/L (137-145); Total Protein 5.9 g/dL (6.3-8.2)
--- NOTE | 2018-03-08 13:22 | XRAY ---
Indication: Mid abdominal pain. History diverticulitis. Multiple contiguous axial images obtained through the abdomen and pelvis without contrast as ordered. Comparison: March 05, 2018. Lung bases again demonstrates small bibasilar atelectasis/scarring and small hiatal hernia. No infiltrate or effusion. Heart is not enlarged. Noncontrasted stomach and bowel loops again appear nonobstructed. Descending and transverse duodenum now demonstrates mild wall thickening with minimal stranding possibly duodenitis. Stable descending duodenal diverticulum. No free fluid/air. Again appendicolith without appendicitis. Stable sigmoid diverticulosis without diverticulitis. Stable hepatic/splenic calcified granulomas, bilateral renal cysts, partial duplication right ureter, and hysterectomy. Remaining liver, gallbladder, pancreas, spleen, adrenal glands, kidneys, ureters, and bladder appear unremarkable for noncontrast exam. Stable mild aortoiliac calcifications without AAA. Osseous structures again demonstrates multilevel degenerative spondylosis and right hip arthroplasty. Stable small fatty umbilical hernia. Impression: 1. New duodenal wall thickening with minimal stranding. Rule out duodenitis. 2. Stable duodenal diverticulum, sigmoid diverticulosis, appendicolith, bilateral renal cysts, partial duplication right ureter, small hiatal hernia, and small fatty umbilical hernia. CT DI 26.41
[2018-03-08] MEDS: Cozaar 50 MG PO SCH (14:05)
[2018-03-08] MEDS ORDERED: Flagyl 500 MG PO SCH (15:00)
[2018-03-08] MEDS: NORCO 7.5/325 MG TAB PO PRN (16:05)
[2018-03-08] MEDS: Senokot-S Tablet PO SCH ×2 (16:22→21:42)
[2018-03-08] MEDS: PROTONIX 40 MG IV IV SCH (17:19)
[2018-03-08] MEDS: Cipro 500 MG PO SCH (21:42)
[2018-03-08] MEDS: COREG 12.5 MG PO SCH (21:43)
[2018-03-08] MEDS: Apresoline 25 MG TABLET PO SCH (21:43)
[2018-03-08] MEDS ORDERED: Senokot-S Tablet PO SCH (22:00)
[2018-03-09] MEDS: FLAGYL 500 MG IVPB 500 MG/100 ML BAG IV SCH ×4 (05:41→23:56)
[2018-03-09] MEDS: Sodium Chloride 0.9% 1000 ML 1,000 ML IV SCH ×2 (05:56→19:50)
[2018-03-09] MEDS: Aldactone 25 MG PO SCH (08:29)
[2018-03-09] MEDS: PROTONIX 40 MG IV IV SCH (08:29)
[2018-03-09] MEDS: Cozaar 50 MG PO SCH (08:29)
[2018-03-09] MEDS: MAG-OX 400 PO SCH (08:29)
[2018-03-09] MEDS: Apresoline 25 MG TABLET PO SCH ×2 (08:30→22:26)
[2018-03-09] MEDS: ZOCOR 20MG PO SCH (08:30)
[2018-03-09] MEDS: Mobic 7.5 MG PO SCH (08:30)
[2018-03-09] MEDS: DELTASONE 5 MG PO SCH (08:30)
[2018-03-09] MEDS: Cipro 500 MG PO SCH ×2 (08:30→22:26)
[2018-03-09] MEDS: hydroDIURIL 25 MG PO SCH (08:30)
[2018-03-09] MEDS: ZYLOPRIM 100 MG PO SCH (08:30)
[2018-03-09] MEDS: NORVASC 5 MG PO SCH (08:31)
[2018-03-09] MEDS: COREG 12.5 MG PO SCH ×2 (08:31→22:26)
[2018-03-09] MEDS: MORPHINE SULFATE 4 MG INJ IV PRN (08:43)
[2018-03-09] MEDS: Zofran 4 MG/2 ML VIAL IV PRN (08:44)
[2018-03-09] MEDS ORDERED: Protonix 20MG Tablet PO SCH (10:00)
[2018-03-09] MEDS ORDERED: LANSOPRAZOLE 15 MG PO SCH (10:00)
[2018-03-09] MEDS ORDERED: NON-FORMULARY ITEM (Losartan Potassium [Losartan Potassium] 100 MG) PO SCH (10:00)
[2018-03-09] MEDS: Senokot-S Tablet PO SCH ×2 (14:00→22:26)
[2018-03-10] MEDS: Apresoline 25 MG TABLET PO SCH (08:51)
[2018-03-10] MEDS: Cozaar 50 MG PO SCH (08:51)
[2018-03-10] MEDS: ZYLOPRIM 100 MG PO SCH (08:51)
[2018-03-10] MEDS: DELTASONE 5 MG PO SCH (08:51)
[2018-03-10] MEDS: NORVASC 5 MG PO SCH (08:52)
[2018-03-10] MEDS: Cipro 500 MG PO SCH (08:52)
[2018-03-10] MEDS: hydroDIURIL 25 MG PO SCH (08:52)
[2018-03-10] MEDS: ZOCOR 20MG PO SCH (08:52)
[2018-03-10] MEDS: MAG-OX 400 PO SCH (08:52)
[2018-03-10] MEDS: COREG 12.5 MG PO SCH (08:54)
[2018-03-10] MEDS: Mobic 7.5 MG PO SCH (08:54)
[2018-03-10] MEDS: PROTONIX 40 MG IV IV SCH (08:55)
[2018-03-10] MEDS: Aldactone 25 MG PO SCH (08:57)
[2018-03-10] MEDS: NORCO 7.5/325 MG TAB PO PRN (09:06)
[2018-03-10 09:39] LABS: Hematocrit 33.3 % (35-47); Hemoglobin 11.2 gm/dl (12.0-16.0); Mean Cell Volume 97.1 fl (78-100); Mean Corpuscular Hgb Concent. 33.6 g/dl (32-36); Mean Platelet Volume 9.6 fl (6-9.5); Platelet Count 280 K/mm3 (150-450); Red Blood Count 3.43 M/mm3 (4.1-5.4); Red Cell Distribution Width 13.8 % (11.5-14.0); White Blood Count 6.8 K/mm3 (4.0-10.5)
[2018-03-10 10:12] LABS: ANION GAP 12.2 MEQ/L (5-15); BLOOD UREA NITROGEN 11 mg/dL (7-17); CHLORIDE 95 mmol/L (98-107); Carbon Dioxide 28 mmol/L (22-30); Creatinine 1 0.94 mg/dL (0.52-1.04); Glucose 156 mg/dL (74-106); SODIUM 132 mmol/L (137-145)
[2018-03-10 10:22] LABS: Mean Corpuscular Hemoglobin 32.6 pg (26-32)
[2018-03-10] MEDS ORDERED: Klor Con 10 MEQ PO SCH ×2 (11:10→22:00)
--- NOTE | 2018-03-10 11:45 | PCM.DS ---
Discharge Summary Date of Admission: 03/08/18 10:19 Admitting Physician: CONRADO VILLALTA Primary Care Provider: CONRADO VILLALTA Allergies Allergies codeine [Codeine] Allergy (Mild, Verified 03/05/18 19:32) Rash Penicillins Allergy (Unknown, Verified 03/05/18 19:32) RASH/UPSET STOMACH Sulfa (Sulfonamide Antibiotics) [Sulfa(Sulfonamide Antibiotics)] Allergy ( Unknown, Verified 03/05/18 19:32) Rash Hospital Summary - Hospital Course Hospital Course: Last Vital Signs Temp 96.8 F 03/10/18 07:26 Pulse 68 03/10/18 07:26 Resp 20 03/10/18 07:26 BP 120/58 03/10/18 07:26 Pulse Ox 97 03/10/18 07:26 Allergies codeine [Codeine] Allergy (Mild, Verified 03/05/18 19:32) Rash Penicillins Allergy (Unknown, Verified 03/05/18 19:32) RASH/UPSET STOMACH Sulfa (Sulfonamide Antibiotics) [Sulfa(Sulfonamide Antibiotics)] Allergy ( Unknown, Verified 03/05/18 19:32) Rash Active Medications Hydrocodone Bitart/Acetaminophen ([place] 7.5/325 Mg Tab) 1 tab PO Q6H PRN PRN PRN Reason: PAIN Stop: 03/13/18 12:30 Last Admin: 03/10/18 09:06 Dose: 1 tab Allopurinol (Zyloprim 100 Mg) 100 mg PO DAILY [facility]AN Stop: 04/08/18 09:59 Last Admin: 03/10/18 08:51 Dose: 100 mg Amlodipine Besylate (Norvasc 5 Mg) 2.5 mg PO DAILY [facility] Stop: 04/08/18 09:59 Last Admin: 03/10/18 08:52 Dose: 2.5 mg Carvedilol (Coreg 12.5 Mg) 12.5 mg PO BID [facility]AN Stop: 04/07/18 21:59 Last Admin: 03/10/18 08:54 Dose: 12.5 mg Ciprofloxacin (Cipro 500 Mg) 500 mg PO BID [facility]AN Stop: 04/07/18 21:59 Last Admin: 03/10/18 08:52 Dose: 500 mg Cyanocobalamin (Cyanocobalamin B-12 1000 Mcg/Ml) 1,000 mcg IJ WEEKLY [facility] Stop: 04/12/18 09:59 Ergocalciferol (Vitamin D2) 50,000 unit PO SuWe [facility] Stop: 04/11/18 09:59 Hydralazine HCl (Apresoline 25 Mg Tablet) 50 mg PO BID [facility]AN Stop: 04/07/18 21:59 Last Admin: 03/10/18 08:51 Dose: 50 mg Hydrochlorothiazide (Hydrodiuril 25 Mg) 25 mg PO DAILY [facility]AN Stop: 04/08/18 09:59 Last Admin: 03/10/18 08:52 Dose: 25 mg Losartan Potassium (Cozaar 50 Mg) 100 mg PO DAILY [facility] Stop: 04/07/18 12:59 Last Admin: 03/10/18 08:51 Dose: 100 mg Magnesium Oxide (Mag-Ox 400) 400 mg PO DAILY [facility] Stop: 04/08/18 09:59 Last Admin: 03/10/18 08:52 Dose: 400 mg Meloxicam (Mobic 7.5 Mg) 7.5 mg PO DAILY [facility]AN Stop: 04/08/18 09:59 Last Admin: 03/10/18 08:54 Dose: 7.5 mg Morphine Sulfate (Morphine Sulfate 4 Mg Inj) 4 mg IV Q2H PRN PRN PRN Reason: PAIN Stop: 03/13/18 11:10 Last Admin: 03/09/18 08:43 Dose: 4 mg Ondansetron HCl (Zofran 4 Mg/2 Ml Vial) 4 mg IV Q4H PRN PRN PRN Reason: NAUSEA/VOMITING Stop: 04/07/18 11:10 Last Admin: 03/09/18 08:44 Dose: 4 mg Pantoprazole Sodium (Protonix 40 Mg Iv) 40 mg IV Q24H10 [facility] Stop: 04/07/18 16:59 Last Admin: 03/10/18 08:55 Dose: Not Given Potassium Chloride (Klor Con 10 Meq) 10 meq PO BID [facility] Stop: 04/09/18 11:08 Prednisone (Deltasone 5 Mg) 5 mg PO DAILY [facility] Stop: 04/08/18 09:59 Last Admin: 03/10/18 08:51 Dose: 5 mg Promethazine HCl (Phenergan 25 Mg Inj) 12.5 mg IV Q4H PRN PRN PRN Reason: NAUSEA/VOMITING Stop: 04/07/18 11:10 Last Admin: 03/08/18 16:09 Dose: 12.5 mg Senna/Docusate Sodium (Senokot-S Tablet) 1 udtab PO 1400,2200 [facility] Stop: 04/07/18 15:59 Last Admin: 03/09/18 22:26 Dose: 1 udtab Simvastatin (Zocor 20mg) 20 mg PO DAILY [facility] Stop: 04/08/18 09:59 Last Admin: 03/10/18 08:52 Dose: 20 mg Spironolactone (Aldactone 25 Mg) 25 mg PO DAILY [facility] Stop: 04/08/18 09:59 Last Admin: 03/10/18 08:57 Dose: 25 mg Intake & Output 03/09/18 03/10/18 11:59 11:59 Intake Total 2606 3990 Output Total 1725 2700 Balance 881 1290 Weight 86 kg Orders 03/10/18 Discharge Routine 03/10/18 11:10 Potassium Chloride 10 Meq Tab* [Klor Con 10 MEQ] 10 meq PO BID 03/12/18 10:00 Ergocalciferol (Vitamin D2) [Vitamin D2] 50,000 unit PO SuWe 03/13/18 10:00 Cyanocobalamin 1000 Mcg/ml [Cyanocobalamin B-12 1000 MCG/ML] 1,000 mcg IJ WEEKLY Lab Tests 03/10/18 03/10/18 09:10 09:10 WBC 6.8 RBC 3.43 L Hgb 11.2 L Hct 33.3 L MCV 97.1 MCH 32.6 H MCHC 33.6 RDW 13.8 Plt Count 280 MPV 9.6 H Sodium 132 L Potassium 3.0 L Chloride 95 L Carbon Dioxide 28 Anion Gap 12.2 BUN 11 Creatinine 0.94 Estimated GFR > 60.0 Glucose 156 H Calcium 9.0 - Vitals & Intake/Output Vital Signs: Vital Signs Temperature 96.8 F 03/10/18 07:26 Pulse Rate 68 03/10/18 07:26 Respiratory Rate 20 03/10/18 07:26 Blood Pressure 120/58 03/10/18 07:26 O2 Sat by Pulse Oximetry 97 03/10/18 07:26 Intake & Output: Intake & Output 03/07/18 03/08/18 03/09/18 03/10/18 11:59 11:59 11:59 11:59 Intake Total 2606 3990 Output Total 1725 2700 Balance 881 1290 Weight 86 kg 86 kg - Lab Result Diagrams: 03/10/18 09:10 03/10/18 09:10 Lab Results-Last 24 Hrs: Lab Results-Last 24 Hours 03/10/18 03/10/18 Range/Units 09:10 09:10 WBC 6.8 (4.0-10.5) K/mm3 RBC 3.43 L (4.1-5.4) M/mm3 Hgb 11.2 L (12.0-16.0) gm/dl Hct 33.3 L (35-47) % MCV 97.1 (78-100) fl MCH 32.6 H (26-32) pg MCHC 33.6 (32-36) g/dl RDW 13.8 (11.5-14.0) % Plt Count 280 (150-450) K/mm3 MPV 9.6 H (6-9.5) fl Sodium 132 L (137-145) mmol/L Potassium 3.0 L (3.5-5.1) mmol/L Chloride 95 L (98-107) mmol/L Carbon Dioxide 28 (22-30) mmol/L Anion Gap 12.2 (5-15) MEQ/L BUN 11 (7-17) mg/dL Creatinine 0.94 (0.52-1.04) mg/dL Estimated GFR > 60.0 ML/MIN Glucose 156 H (74-106) mg/dL Calcium 9.0 (8.4-10.2) mg/dL - Radiology Exams Ordered Rad Exams-Entire Visit: Radiology Procedures Category Date Time Status ABDOMEN AND PELVIS W/0 CONTRAS [CT] Stat Exams 03/08/18 11:11 Completed - Procedures and Test Procedures and Tests throughout Hospitalization: Therapy Orders & Screens 03/08/18 12:18 PT Screen per Nursing Assess ONCE Comment: Protocol Order Physician Instructions: Greater than 3 points order PT Admission Screenin Reason For Exam: Triggered on Admission Diagnosis: diverticulitis Open Wound/Cellutlitis/Pressure Ulcers: No Acute Fx/ORIF/Change in wt bearing status: No Severe MUSCULOSKELETAL pain: Yes ADL Dysfunction: No Acute CVA w/Hemiparesis/Hemiplegia: No Decreased Functional Mobility/Strength: No Sprain/Strain: No Acute Post-op Mobility Dysfunction: No Total Points: 5 Discharge Exam General Appearance: no apparent distress, alert Neurologic Exam: alert, oriented x 3, cooperative, normal mood/affect, nml cerebellar function, sensation nml, No motor deficits Skin Exam: normal color, warm, dry Eye Exam: PERRL, EOMI, eyes nml inspection Ears, Nose, Throat Exam: normal ENT inspection, pharynx normal, moist mucous membranes Neck Exam: normal inspection, non-tender, supple, full range of motion Respiratory Exam: normal breath sounds, lungs clear, No respiratory distress Cardiovascular Exam: regular rate/rhythm, normal heart sounds Gastrointestinal/Abdomen Exam: soft, No tenderness, No mass Extremity Exam: normal inspection, normal range of motion Back Exam: normal inspection, normal range of motion, No CVA tenderness, No vertebral tenderness Pelvic Exam: deferred Rectal Exam: deferred Final Diagnosis/Problem List - Final Discharge Diagnosis/Problem (1) Colitis Current Visit: Yes Status: Resolved (2) Diverticulitis of sigmoid colon Current Visit: Yes Status: Resolved (3) 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 (4) Duodenitis without bleeding Current Visit: Yes Status: Acute Assessment & Plan: Last Vital Signs Temp 96.8 F 03/10/18 07:26 Pulse 68 03/10/18 07:26 Resp 20 03/10/18 07:26 BP 120/58 03/10/18 07:26 Pulse Ox 97 03/10/18 07:26 Allergies codeine [Codeine] Allergy (Mild, Verified 03/05/18 19:32) Rash Penicillins Allergy (Unknown, Verified 03/05/18 19:32) RASH/UPSET STOMACH Sulfa (Sulfonamide Antibiotics) [Sulfa(Sulfonamide Antibiotics)] Allergy ( Unknown, Verified 03/05/18 19:32) Rash Active Medications Hydrocodone Bitart/Acetaminophen ([place] 7.5/325 Mg Tab) 1 tab PO Q6H PRN PRN PRN Reason: PAIN Stop: 03/13/18 12:30 Last Admin: 03/10/18 09:06 Dose: 1 tab Allopurinol (Zyloprim 100 Mg) 100 mg PO DAILY [facility]AN Stop: 04/08/18 09:59 Last Admin: 03/10/18 08:51 Dose: 100 mg Amlodipine Besylate (Norvasc 5 Mg) 2.5 mg PO DAILY [facility] Stop: 04/08/18 09:59 Last Admin: 03/10/18 08:52 Dose: 2.5 mg Carvedilol (Coreg 12.5 Mg) 12.5 mg PO BID [facility] Stop: 04/07/18 21:59 Last Admin: 03/10/18 08:54 Dose: 12.5 mg Ciprofloxacin (Cipro 500 Mg) 500 mg PO BID [facility] Stop: 04/07/18 21:59 Last Admin: 03/10/18 08:52 Dose: 500 mg Cyanocobalamin (Cyanocobalamin B-12 1000 Mcg/Ml) 1,000 mcg IJ WEEKLY [facility] Stop: 04/12/18 09:59 Ergocalciferol (Vitamin D2) 50,000 unit PO SuWe [facility] Stop: 04/11/18 09:59 Hydralazine HCl (Apresoline 25 Mg Tablet) 50 mg PO BID [facility] Stop: 04/07/18 21:59 Last Admin: 03/10/18 08:51 Dose: 50 mg Hydrochlorothiazide (Hydrodiuril 25 Mg) 25 mg PO DAILY [facility] Stop: 04/08/18 09:59 Last Admin: 03/10/18 08:52 Dose: 25 mg Losartan Potassium (Cozaar 50 Mg) 100 mg PO DAILY [facility] Stop: 04/07/18 12:59 Last Admin: 03/10/18 08:51 Dose: 100 mg Magnesium Oxide (Mag-Ox 400) 400 mg PO DAILY [facility] Stop: 04/08/18 09:59 Last Admin: 03/10/18 08:52 Dose: 400 mg Meloxicam (Mobic 7.5 Mg) 7.5 mg PO DAILY [facility] Stop: 04/08/18 09:59 Last Admin: 03/10/18 08:54 Dose: 7.5 mg Morphine Sulfate (Morphine Sulfate 4 Mg Inj) 4 mg IV Q2H PRN PRN PRN Reason: PAIN Stop: 03/13/18 11:10 Last Admin: 03/09/18 08:43 Dose: 4 mg Ondansetron HCl (Zofran 4 Mg/2 Ml Vial) 4 mg IV Q4H PRN PRN PRN Reason: NAUSEA/VOMITING Stop: 04/07/18 11:10 Last Admin: 03/09/18 08:44 Dose: 4 mg Pantoprazole Sodium (Protonix 40 Mg Iv) 40 mg IV Q24H10 [facility] Stop: 04/07/18 16:59 Last Admin: 03/10/18 08:55 Dose: Not Given Potassium Chloride (Klor Con 10 Meq) 10 meq PO BID [facility] Stop: 04/09/18 11:08 Prednisone (Deltasone 5 Mg) 5 mg PO DAILY [facility] Stop: 04/08/18 09:59 Last Admin: 03/10/18 08:51 Dose: 5 mg Promethazine HCl (Phenergan 25 Mg Inj) 12.5 mg IV Q4H PRN PRN PRN Reason: NAUSEA/VOMITING Stop: 04/07/18 11:10 Last Admin: 03/08/18 16:09 Dose: 12.5 mg Senna/Docusate Sodium (Senokot-S Tablet) 1 udtab PO 1400,2200 [facility] Stop: 04/07/18 15:59 Last Admin: 03/09/18 22:26 Dose: 1 udtab Simvastatin (Zocor 20mg) 20 mg PO DAILY [facility] Stop: 04/08/18 09:59 Last Admin: 03/10/18 08:52 Dose: 20 mg Spironolactone (Aldactone 25 Mg) 25 mg PO DAILY [facility] Stop: 04/08/18 09:59 Last Admin: 03/10/18 08:57 Dose: 25 mg Intake & Output 03/09/18 03/10/18 11:59 11:59 Intake Total 2606 3990 Output Total 1725 2700 Balance 881 1290 Weight 86 kg Orders 03/10/18 Discharge Routine 03/10/18 11:10 Potassium Chloride 10 Meq Tab* [Klor Con 10 MEQ] 10 meq PO BID 03/12/18 10:00 Ergocalciferol (Vitamin D2) [Vitamin D2] 50,000 unit PO SuWe 03/13/18 10:00 Cyanocobalamin 1000 Mcg/ml [Cyanocobalamin B-12 1000 MCG/ML] 1,000 mcg IJ WEEKLY Lab Tests 03/10/18 03/10/18 09:10 09:10 WBC 6.8 RBC 3.43 L Hgb 11.2 L Hct 33.3 L MCV 97.1 MCH 32.6 H MCHC 33.6 RDW 13.8 Plt Count 280 MPV 9.6 H Sodium 132 L Potassium 3.0 L Chloride 95 L Carbon Dioxide 28 Anion Gap 12.2 BUN 11 Creatinine 0.94 Estimated GFR > 60.0 Glucose 156 H Calcium 9.0 improved, duodenitis most likely drug induced - Discharge Discharge Date: 03/10/18 Disposition: Home, Self-Care Condition: Stable Prescriptions: New Potassium Chloride [K-Dur] 10 meq PO BID #60 tab.er.prt Omeprazole 40 mg PO BID #120 tablet. Acyclovir 800 mg [Zovirax 800 mg] 800 mg PO TID #30 tablet Continue Ergocalciferol (Vitamin D2) [Vitamin D2] 50,000 iu PO UD Magnesium Oxide 400 mg [Mag-Ox 400] 400 mg PO DAILY Allopurinol 100 mg [Zyloprim 100 mg] 100 mg PO DAILY Sennosides/Docusate Sodium [Senokot-S Tablet] 1 each PO BID Simvastatin 20Mg [Zocor 20Mg] 20 mg PO DAILY Spironolactone 25 mg [Aldactone 25 MG] 25 mg PO DAILY Hydrocodone Bit/Acetaminophen [[place] 7.5-325 Tablet] 1 each PO Q6H PRN PRN PRN Reason: Pain Meloxicam 7.5 mg PO DAILY Amlodipine Besylate 2.5 mg PO DAILY Cyanocobalamin 1000 Mcg/ml [Cyanocobalamin B-12 1000 MCG/ML] 1,000 mcg IJ WEEKLY Carvedilol 12.5 mg [Coreg 12.5 mg] 12.5 mg PO BID HydrALAzine HCL 25 MG TAB [Apresoline 25 MG TABLET] 50 mg PO BID Hydrochlorothiazide 25 mg [hydroDIURIL 25 MG] 25 mg PO DAILY Ciprofloxacin [Cipro 500 MG] 500 mg PO BID #14 tablet predniSONE [Prednisone] 5 mg PO DAILY Losartan Potassium 100 mg PO DAILY Discontinued Lansoprazole [Prevacid] 15 mg PO DAILY Metronidazole 500 mg [Flagyl 500 MG] 500 mg PO TID #21 tablet Instructions: High Fiber Diet, Diverticulitis (DC) Follow up with: CONRADO VILLALTA MD [Primary Care Provider] - 03/17/18 3:30 pm (at [facility] ) Forms: Discharge Instructions
[2018-03-10 13:02] VITALS: BP 109/58; PULSE 89; O2SAT 98
[2018-03-12] MEDS ORDERED: VITAMIN D2 PO SCH (10:00)
[2018-03-13] MEDS ORDERED: Cyanocobalamin B-12 1000 MCG/ML IJ SCH (10:00)
== END 2018-03-10 14:00 | disposition home or self-care (01) | DRG 392 ==
LOC: EDSTATUS 10:18 → MED SURG 10:19
PROVIDERS: ADMIT General Practice; ATTEND General Practice
DX: K52.9 Noninfective gastroenteritis and colitis, unspecified (principal); K57.32 Diverticulitis of large intestine without perforation or abscess without bleeding; I13.10 Hypertensive heart and chronic kidney disease without heart failure, with stage 1 through stage 4 chronic kidney disease, or unspecified chronic kidney disease; N18.9 Chronic kidney disease, unspecified; K29.80 Duodenitis without bleeding; Z79.899 Other long term (current) drug therapy; M19.90 Unspecified osteoarthritis, unspecified site; K21.9 Gastro-esophageal reflux disease without esophagitis; Z23 Encounter for immunization
CPT/HCPCS: 36415; 74176; 80048; 80053; 82150; 82272; 83605; 83690; 84484; 85025; 85027; 90662; G0008; J2270; J2405; J2550; A9270-GY

== ENCOUNTER 2018-06-10 08:43 | Emergency (ER) | payer MEDICARE, OTHER ==
[2018-06-10] MEDS ORDERED: NITRO-BID 2% UD PACKETS TOP ONE (09:08)
[2018-06-10] MEDS ORDERED: BABY ASPIRIN 81 MG CHEW PO ONE (09:08)
[2018-06-10] MEDS ORDERED: Nitrostat 0.4 MG (ED) SL ONE ×2 (09:08→10:57)
[2018-06-10] MEDS ORDERED: DUONEB 0.5-3 MG/3 ml Neb IH ONE ×2 (09:09→09:15)
[2018-06-10 09:12] LABS: BASOPHIL % 0.2 % (0.0-0.4); Basophil (Absolute #) 0.02 (0-0.4); Eosinophil % 0.5 % (0.00-5.0); Eosinophil (Absolute #) 0.05 (0-0.5); Hematocrit 34.9 % (35-47); Hemoglobin 10.9 gm/dl (12.0-16.0); Lymphocyte (Absolute #) 4.79 (1.0-4.6); Lymphocytes % 45.5 % (24.0-44.0); Mean Cell Volume 100.6 fl (78-100); Mean Corpuscular Hemoglobin 31.4 pg (26-32); Mean Corpuscular Hgb Concent. 31.2 g/dl (32-36); Mean Platelet Volume 9.5 fl (6-9.5); Monocyte (Absolute #) 0.72 (0.0-1.3); Monocytes % 6.8 % (0.0-12.0); Platelet Count 227 K/mm3 (150-450); Red Blood Count 3.47 M/mm3 (4.1-5.4); Red Cell Distribution Width 14.8 % (11.5-14.0); White Blood Count 10.5 K/mm3 (4.0-10.5)
--- NOTE | 2018-06-10 09:12 | ERPHSYRPT ---
- History of Present Illness Time Seen by Provider: 06/10/18 08:55 Historian: patient Exam Limitations: clinical condition Patient Subjective Stated Complaint: SOB and heaviness in chest Triage Nursing Assessment: Pt c/o of SOB and chest heaviness since 0300 this am when it woke her up, tachycardic, BP 174/102, +1 edema on bilateral lower ext., O2 91% placed on NC 2L and now at 97%, irregular arrythmia, Physician History: Patient with a history of and hypertension and colitis complains of acute onse at 3 AM this morning of chest heaviness associated with difficulty breathing and shortness of breath. Patient states she experienced lower extremity swelling after taking prednisone for 1 week. Patient denies coughing, fever, chills, radiation of pain to her neck, jaw or arms. She denies palpitations and diaphoresis. Patient rates her chest discomfort as a 5/10. Timing/Duration: hour(s) Activities at Onset: none Quality: pressure, tightness Location: substernal Chest Pain Radiation: no radiation Severity of Pain-Max: moderate Severity of Pain-Current: moderate Modifying Factors: Improves With: breathing Associated Symptoms: shortness of breath Prior Chest Pain/Cardiac Workup: no prior chest pain Nitro Today/Relief: no nitro taken today, 0.4 mg x 2, provided by ED, mild relief Aspirin Treatment Today: 81 mg x 4, provided by ED Allergies/Adverse Reactions: codeine [Codeine] Allergy (Mild, Verified 06/10/18 09:06) Rash Penicillins Allergy (Unknown, Verified 06/10/18 09:06) RASH/UPSET STOMACH Sulfa (Sulfonamide Antibiotics) [Sulfa(Sulfonamide Antibiotics)] Allergy ( Unknown, Verified 06/10/18 09:06) Rash cephalexin [From Keflex] Allergy (Verified 06/10/18 09:06) ciprofloxacin [From Cipro] Allergy (Verified 06/10/18 09:06) Home Medications: Allopurinol 100 mg [Zyloprim 100 mg] 100 mg PO DAILY 04/09/17 [History] Amlodipine Besylate 2.5 mg PO DAILY 04/09/17 [History] Carvedilol 12.5 mg [Coreg 12.5 mg] 12.5 mg PO BID 04/09/17 [History] Cyanocobalamin 1000 Mcg/ml [Cyanocobalamin B-12 1000 MCG/ML] 1,000 mcg IJ WEEKLY 04/09/17 [History] Ergocalciferol (Vitamin D2) [Vitamin D2] 50,000 iu PO UD 04/09/17 [History] HydrALAzine HCL 25 MG TAB [Apresoline 25 MG TABLET] 50 mg PO BID 04/09/17 [History] Hydrochlorothiazide 25 mg [hydroDIURIL 25 MG] 25 mg PO DAILY 04/09/17 [ History] Hydrocodone Bit/Acetaminophen [[place] 7.5-325 Tablet] 1 each PO Q6H PRN PRN 04/09 [History] Magnesium Oxide 400 mg [Mag-Ox 400] 400 mg PO DAILY 04/09/17 [History] Meloxicam 7.5 mg PO DAILY 04/09/17 [History] Sennosides/Docusate Sodium [Senokot-S Tablet] 1 each PO BID 04/09/17 [History] Simvastatin 20Mg [Zocor 20Mg] 20 mg PO DAILY 04/09/17 [History] Spironolactone 25 mg [Aldactone 25 MG] 25 mg PO DAILY 04/09/17 [History] Losartan Potassium 100 mg PO DAILY 03/08/18 [History] predniSONE [Prednisone] 5 mg PO BID 03/08/18 [History] Hx Tetanus, Diphtheria Vaccination/Date Given: Yes Hx Influenza Vaccination/Date Given: No Hx Pneumococcal Vaccination/Date Given: Yes - Review of Systems Constitutional: No Fever, No Chills Eyes: No Symptoms Ears, Nose, & Throat: No Symptoms Respiratory: Dyspnea, Dyspnea on Exertion (GAMING), No Cough Cardiac: Chest Pain, No Edema, No Syncope Abdominal/Gastrointestinal: No Symptoms, No Abdominal Pain, No Nausea, No Vomiting, No Diarrhea Genitourinary Symptoms: No Symptoms, No Dysuria Musculoskeletal: No Symptoms, No Back Pain, No Neck Pain Skin: No Rash Neurological: No Dizziness, No Focal Weakness, No Sensory Changes Psychological: No Symptoms Endocrine: No Symptoms All Other Systems: Reviewed and Negative - Past Medical History Pertinent Past Medical History: Yes Neurological History: No Pertinent History ENT History: No Pertinent History Cardiac History: Hypertension Respiratory History: No Pertinent History Endocrine Medical History: No Pertinent History Musculoskeletal History: Osteoarthritis GI Medical History: Diverticulitis, GERD, Hernia History: Other Psycho-Social History: No Pertinent History Female Reproductive Disorders: No Pertinent History Other Medical History: R CHRISTINE 14 -15 YEARS AGO, HYSTERECTOMY - Past Surgical History Past Surgical History: Yes Neuro Surgical History: No Pertinent History Cardiac: No Pertinent History Respiratory: No Pertinent History Gastrointestinal: No Pertinent History Genitourinary: No Pertinent History Musculoskeletal: Joint Replacement Female Surgical History: Hysterectomy Other Surgical History: RIGHT HIP REPLACEMENT, BLADDER SLING - Social History Smoking Status: Never smoker Exposure to second hand smoke: No Alcohol Use: None Drug Use: none Patient Lives Alone: No Significant Family History: no pertinent family hx - Nursing Vital Signs Nursing Vital Signs: Initial Vital Signs Temperature 97.8 F 06/10/18 08:44 Pulse Rate 116 H 06/10/18 08:44 Respiratory Rate 12 06/10/18 08:44 Blood Pressure 186/139 06/10/18 08:44 O2 Sat by Pulse Oximetry 91 L 06/10/18 08:44 Pain Scale Pain Intensity 4 - Physical Exam General Appearance: mild distress Eye Exam: PERRL/EOMI, eyes nml inspection Ears, Nose, Throat Exam: normal ENT inspection, moist mucous membranes Neck Exam: normal inspection, non-tender, supple, full range of motion, JVD ( THERE IS MINIMAL JVD) Respiratory Exam: normal breath sounds Cardiovascular Exam: regular rate/rhythm, normal heart sounds, normal peripheral pulses, edema (+1 PRETIBIAL EDEMA) Gastrointestinal/Abdomen Exam: soft, normal bowel sounds Back Exam: normal inspection, normal range of motion Extremity Exam: normal inspection, normal range of motion, pedal edema (1+ PRETIBIAL EDEMA) Neurologic Exam: alert, oriented x 3 Skin Exam: normal color, warm SpO2 Interpretation: hypoxic SpO2: 91 Oxygen Delivery: Room Air - Course Nursing assessment & vital signs reviewed: Yes EKG Interpreted by Me: RATE, Sinus Rhythm, NORMAL AXIS, 1st degree AV Block Rhythm Strip: 1st degree block Ordered Tests: Active Orders 24 hr Category Date Time Status Manual Lathe Operator STAT Care 06/10/18 09:02 Active EKG-ER Only STAT Care 06/10/18 09:01 Active IV Insertion STAT Care 06/10/18 09:01 Active Oxygen-ED Only NASAL CANNULA 2 lpm Care 06/10/18 09:01 Active CHEST 1 VIEW (PORTABLE) Stat Exams 06/10/18 09:02 Taken CBC W DIFF Stat Lab 06/10/18 09:09 Completed CMP Stat Lab 06/10/18 09:09 Completed D-DIMER QUANTITATION Stat Lab 06/10/18 09:09 Completed NT PRO BNP Stat Lab 06/10/18 09:09 Completed PROTIME WITH INR Stat Lab 06/10/18 09:09 Completed TROPONIN Q3H Lab 06/10/18 09:09 Completed Peak Expiratory Flow Rate ONCE RT 06/10/18 09:24 Completed Respiratory Nebulizer STAT RT 06/10/18 09:09 Completed Respiratory Therapy Assessment DAILY RT 06/10/18 09:23 Completed Medication Summary Generic Name Dose Route Start Last Admin Trade Name Freq PRN Reason Stop Dose Admin Sodium Chloride 1,000 mls @ 10 mls/hr 06/10/18 09:15 06/10/18 09:17 Sodium Chloride 0.9% 1000 Ml IV 07/10/18 09:14 10 mls/hr .Q24H ARIAN Administration Discontinued Medications Generic Name Dose Route Start Last Admin Trade Name Freq PRN Reason Stop Dose Admin Albuterol/Ipratropium 3 ml 06/10/18 09:09 06/10/18 09:18 Duoneb 0.5-3 Mg/3 Ml Neb IH 06/10/18 09:10 3 ml STAT ONE Administration Albuterol/Ipratropium Confirm 06/10/18 09:15 Duoneb 0.5-3 Mg/3 Ml Neb Administered 06/10/18 09:16 Dose 3 ml IH .STK-MED ONE Aspirin 324 mg 06/10/18 09:08 06/10/18 09:16 Baby Aspirin 81 Mg Chew PO 06/10/18 09:09 324 mg STAT ONE Administration Aspirin Confirm 06/10/18 10:57 Baby Aspirin 81 Mg Chew Administered 06/10/18 10:58 Dose 324 mg .ROUTE .STK-MED ONE Enoxaparin Sodium 80 mg 06/10/18 10:06 06/10/18 10:16 Enoxaparin Sodium SQ 06/10/18 10:07 80 mg STAT ONE Administration Enoxaparin Sodium Confirm 06/10/18 10:10 Enoxaparin Sodium Administered 06/10/18 10:11 Dose 80 mg SQ .STK-MED ONE Sodium Chloride 1,000 mls @ 50 mls/hr 06/10/18 09:15 Sodium Chloride 0.9% 1000 Ml IV 07/10/18 09:14 .Q20H ARIAN Nitroglycerin 0.4 mg 06/10/18 09:08 06/10/18 09:16 Nitrostat 0.4 Mg (Ed) SL 06/10/18 09:09 0.4 mg STAT ONE Administration Nitroglycerin 1 gm 06/10/18 09:08 06/10/18 09:17 Nitro-Bid 2% Ud Packets TOP 06/10/18 09:09 1 gm STAT ONE Administration Nitroglycerin Confirm 06/10/18 09:18 Nitro-Bid 2% Ud Packets Administered 06/10/18 09:19 Dose 1 gm .ROUTE .STK-MED ONE Nitroglycerin Confirm 06/10/18 10:57 Nitrostat 0.4 Mg (Ed) Administered 06/10/18 10:58 Dose 0.4 mg SL .STK-MED ONE Lab/Rad Data: Laboratory Result Diagrams 06/10/18 09:09 06/10/18 09:09 Laboratory Results 06/10/18 06/10/18 06/10/18 Range/Units 09:09 09:09 09:09 WBC (4.0-10.5) K/mm3 RBC (4.1-5.4) M/mm3 Hgb (12.0-16.0) gm/dl Hct (35-47) % MCV (78-100) fl MCH (26-32) pg MCHC (32-36) g/dl RDW (11.5-14.0) % Plt Count (150-450) K/mm3 MPV (6-9.5) fl Gran % (36.0-66.0) % Eos # (Auto) (0-0.5) Absolute Lymphs (auto) (1.0-4.6) Absolute Monos (auto) (0.0-1.3) Lymphocytes % (24.0-44.0) % Monocytes % (0.0-12.0) % Eosinophils % (0.00-5.0) % Basophils % (0.0-0.4) % Absolute Granulocytes (1.4-6.9) Basophils # (0-0.4) PT 11.6 (9.95-12.35) SECONDS INR 1.00 (0.8-3.0) D-Dimer 6952 H* (215-500) ng/mL Sodium 138 (137-145) mmol/L Potassium 4.1 (3.5-5.1) mmol/L Chloride 105 (98-107) mmol/L Carbon Dioxide 24 (22-30) mmol/L Anion Gap 13.2 (5-15) MEQ/L BUN 26 H (7-17) mg/dL Creatinine 1.02 (0.52-1.04) mg/dL Estimated GFR 54.7 ML/MIN Glucose 107 H (74-106) mg/dL Calcium 10.0 (8.4-10.2) mg/dL Total Bilirubin 0.50 (0.2-1.3) mg/dL AST 22 (14-36) U/L ALT 17 (0-35) U/L Alkaline Phosphatase 49 (38-126) U/L Troponin I 0.121 H* (0.000-0.034) ng/mL NT-Pro-B Natriuret Pep 382 (0-1800) pg/mL Serum Total Protein 6.6 (6.3-8.2) g/dL Albumin 4.1 (3.5-5.0) g/dL 06/10/18 Range/Units 09:09 WBC 10.5 (4.0-10.5) K/mm3 RBC 3.47 L (4.1-5.4) M/mm3 Hgb 10.9 L (12.0-16.0) gm/dl Hct 34.9 L (35-47) % MCV 100.6 H (78-100) fl MCH 31.4 (26-32) pg MCHC 31.2 L (32-36) g/dl RDW 14.8 H (11.5-14.0) % Plt Count 227 (150-450) K/mm3 MPV 9.5 (6-9.5) fl Gran % 47.0 (36.0-66.0) % Eos # (Auto) 0.05 (0-0.5) Absolute Lymphs (auto) 4.79 H (1.0-4.6) Absolute Monos (auto) 0.72 (0.0-1.3) Lymphocytes % 45.5 H (24.0-44.0) % Monocytes % 6.8 (0.0-12.0) % Eosinophils % 0.5 (0.00-5.0) % Basophils % 0.2 (0.0-0.4) % Absolute Granulocytes 4.94 (1.4-6.9) Basophils # 0.02 (0-0.4) PT (9.95-12.35) SECONDS INR (0.8-3.0) D-Dimer (215-500) ng/mL Sodium (137-145) mmol/L Potassium (3.5-5.1) mmol/L Chloride (98-107) mmol/L Carbon Dioxide (22-30) mmol/L Anion Gap (5-15) MEQ/L BUN (7-17) mg/dL Creatinine (0.52-1.04) mg/dL Estimated GFR ML/MIN Glucose (74-106) mg/dL Calcium (8.4-10.2) mg/dL Total Bilirubin (0.2-1.3) mg/dL AST (14-36) U/L ALT (0-35) U/L Alkaline Phosphatase (38-126) U/L Troponin I (0.000-0.034) ng/mL NT-Pro-B Natriuret Pep (0-1800) pg/mL Serum Total Protein (6.3-8.2) g/dL Albumin (3.5-5.0) g/dL - Progress Progress Note: 06/10/18 10:09 IV NORMAL SALINE 10ML/HR, ASA 324MG ORALLY, NTG 0.4MG SL, APPLICATION NITROPASTE 1" TO ANTERIOR CHEST WALL, FOLLOWED BY DUO NEB AEROSOL TX, CHEST PAIN IMPROVED TO PAIN SCALE 2/10, ELEVATED TROPONIN 0.121 ADMINISTERED LOVENOX 80MG SUB Q 06/10/18 10:25, DDIMER [id number] Discussed with : Other (DISCUSSED WITH DR HUBBARD AT 1020 AT [facility] FOR [facility]) - Departure Time of Disposition: 10:23 Departure Disposition: Transfer Clinical Impression: ACUTE CHEST PAIN, ELEVATED TROPONIN Condition: Stable Critical Care Time: No Referrals: CONRADO VILLALTA MD [Primary Care Provider] -
[2018-06-10] MEDS ORDERED: Sodium Chloride 0.9% 1000 ML 1,000 ML IV SCH ×2 (09:15)
[2018-06-10] MEDS ORDERED: NITRO-BID 2% UD PACKETS ONE (09:18)
[2018-06-10 09:35] VITALS: BP 165/108; PULSE 95
[2018-06-10 09:53] LABS: ALBUMIN 4.1 g/dL (3.5-5.0); ANION GAP 13.2 MEQ/L (5-15); BILIRUBIN,TOTAL 0.5 mg/dL (0.2-1.3); Creatinine 1 1.02 mg/dL (0.52-1.04); Potassium 4.1 mmol/L (3.5-5.1); Total Protein 6.6 g/dL (6.3-8.2)
[2018-06-10 10:03] LABS: PROTIME 11.6 SECONDS (9.95-12.35)
[2018-06-10] MEDS ORDERED: ENOXAPARIN SODIUM SQ ONE ×2 (10:06→10:10)
[2018-06-10 10:23] VITALS: O2SAT 91
[2018-06-10] MEDS ORDERED: BABY ASPIRIN 81 MG CHEW ONE (10:57)
--- NOTE | 2018-06-10 18:39 | XRAY ---
Indication: Chest tightness/heaviness. Short of breath. Comparison: October 03, 2016. Portable chest remains clear. Heart is not enlarged for AP portable technique. Descending aorta remains tortuous. Bony thorax intact again with mild osteopenia and degenerative changes. Impression: Stable nonacute chest with chronic features.
== END 2018-06-10 10:23 | disposition short-term general hospital (02) ==
LOC: ED 08:43
DX: R07.89 Other chest pain (principal); R74.8 Abnormal levels of other serum enzymes; I10 Essential (primary) hypertension; R09.02 Hypoxemia; K21.9 Gastro-esophageal reflux disease without esophagitis; Z79.899 Other long term (current) drug therapy
CPT/HCPCS: 36415; 71045; 80053; 83880; 84484; 85025; 85379; 85610; 93005; 93041; 94150; 94640; 96360; 96372; 99285; J1650; A9270-GY

== ENCOUNTER 2018-07-07 10:42 | Inpatient (IN) | payer MEDICARE, OTHER ==
--- NOTE | 2018-07-07 11:10 | ERPHSYRPT ---
- History of Present Illness Time Seen by Provider: 07/07/18 11:00 Source: patient Exam Limitations: clinical condition Patient Subjective Stated Complaint: pt here for difficulty urinating this morning, last time was at 0330, pt also co pain to abd Triage Nursing Assessment: pt arrived per ambulance. alert, resp easy, skin w/d/ p. abd soft tender to lower, with bs heard x 4 Physician History: PATIENT WITH A HISTORY OF HYPERTENSION, COLITIS, PULMONARY EMBOLISM DIAGNOSED 3 WEEKS AGO COMPLAINS OF THE INABILITY TO URINATE SINCE 3:30AM TODAY ASSOCIATED WITH SUPRAPUBIC PAIN DISCOMFORT. DENIES EMESIS, DIARRHEA, FEVER. Timing/Duration: today Activites at Onset: none Quality: cramping Onset Location: suprapubic Severity of Pain-Max: mild Severity of Pain-Current: mild Prior abdominal problems: other (COLITIS) Sexual intercourse history: non-contributory Modifying Factors: Improves With: nothing Associated Symptoms: other (DRIBBLING) Allergies/Adverse Reactions: codeine [Codeine] Allergy (Mild, Verified 07/07/18 10:52) Rash Penicillins Allergy (Unknown, Verified 07/07/18 10:52) RASH/UPSET STOMACH Sulfa (Sulfonamide Antibiotics) [Sulfa(Sulfonamide Antibiotics)] Allergy ( Unknown, Verified 07/07/18 10:52) Rash cephalexin [From Keflex] Allergy (Verified 07/07/18 10:52) ciprofloxacin [From Cipro] Allergy (Verified 07/07/18 10:52) Home Medications: Allopurinol 100 mg [Zyloprim 100 mg] 100 mg PO DAILY 04/09/17 [History] Carvedilol 12.5 mg [Coreg 12.5 mg] 12.5 mg PO BID 04/09/17 [History] Cyanocobalamin 1000 Mcg/ml [Cyanocobalamin B-12 1000 MCG/ML] 1,000 mcg IJ WEEKLY 04/09/17 [History] Ergocalciferol (Vitamin D2) [Vitamin D2] 50,000 iu PO WEEKLY 04/09/17 [History] HydrALAzine HCL 25 MG TAB [Apresoline 25 MG TABLET] 50 mg PO BID 04/09/17 [History] Hydrochlorothiazide 25 mg [hydroDIURIL 25 MG] 25 mg PO DAILY 04/09/17 [ History] Hydrocodone Bit/Acetaminophen [[place] 7.5-325 Tablet] 1 each PO Q6H PRN PRN 04/09 [History] Magnesium Oxide 400 mg [Mag-Ox 400] 400 mg PO DAILY 04/09/17 [History] Meloxicam 7.5 mg PO DAILY 04/09/17 [History] Sennosides/Docusate Sodium [Senokot-S Tablet] 1 each PO BID 04/09/17 [History] Simvastatin 20Mg [Zocor 20Mg] 20 mg PO HS 04/09/17 [History] Spironolactone 25 mg [Aldactone 25 MG] 25 mg PO BID 04/09/17 [History] Losartan Potassium 100 mg PO DAILY 03/08/18 [History] predniSONE [Prednisone] 5 mg PO BID 03/08/18 [History] Apixaban [Eliquis] 5 mg PO BID 07/07/18 [History] Furosemide 40 mg [Lasix 40 MG] 40 mg PO DAILY 07/07/18 [History] Hx Tetanus, Diphtheria Vaccination/Date Given: Yes Hx Influenza Vaccination/Date Given: Yes Hx Pneumococcal Vaccination/Date Given: Yes - Review of Systems Constitutional: No Fever, No Chills Eyes: No Symptoms Ears, Nose, & Throat: No Symptoms Respiratory: No Cough, No Dyspnea Cardiac: No Symptoms, No Chest Pain, No Edema, No Syncope Abdominal/Gastrointestinal: Abdominal Pain, No Nausea, No Vomiting, No Diarrhea Genitourinary Symptoms: Hesitancy, No Dysuria Musculoskeletal: No Symptoms, No Back Pain, No Neck Pain Skin: No Rash Neurological: No Symptoms, No Dizziness, No Focal Weakness, No Sensory Changes Psychological: No Symptoms Endocrine: No Symptoms All Other Systems: Reviewed and Negative - Past Medical History Pertinent Past Medical History: Yes Neurological History: No Pertinent History ENT History: No Pertinent History Cardiac History: Hypertension Respiratory History: No Pertinent History, Pulmonary Embolism Endocrine Medical History: No Pertinent History Musculoskeletal History: Osteoarthritis GI Medical History: Diverticulitis, GERD, Hernia History: Other Psycho-Social History: No Pertinent History Female Reproductive Disorders: No Pertinent History Other Medical History: R CHRISTINE 14 -15 YEARS AGO, HYSTERECTOMY - Past Surgical History Past Surgical History: Yes Neuro Surgical History: No Pertinent History Cardiac: No Pertinent History Respiratory: No Pertinent History Gastrointestinal: No Pertinent History Genitourinary: No Pertinent History Musculoskeletal: Joint Replacement Female Surgical History: Hysterectomy Other Surgical History: RIGHT HIP REPLACEMENT, BLADDER SLING - Social History Smoking Status: Never smoker Exposure to second hand smoke: No Alcohol Use: None Drug Use: none Patient Lives Alone: Yes Significant Family History: no pertinent family hx - Female History Hx Last Menstrual Period: post Hx Now: No - Nursing Vital Signs Nursing Vital Signs: Initial Vital Signs Temperature 97.6 F 07/07/18 10:43 Pulse Rate 87 07/07/18 10:43 Respiratory Rate 16 07/07/18 10:43 Blood Pressure 139/79 07/07/18 10:43 O2 Sat by Pulse Oximetry 97 07/07/18 10:43 Pain Scale Pain Intensity 4 - Physical Exam General Appearance: no apparent distress, alert Eye Exam: PERRL/EOMI, eyes nml inspection Ears, Nose, Throat Exam: normal ENT inspection, TMs normal, pharynx normal, moist mucous membranes Neck Exam: normal inspection, non-tender, supple, full range of motion Respiratory Exam: normal breath sounds, lungs clear, No respiratory distress Cardiovascular Exam: regular rate/rhythm, normal heart sounds, normal peripheral pulses Gastrointestinal/Abdomen Exam: soft, normal bowel sounds, tenderness (THERE IS SUPRAPUBIC TENDERNESS WITH DISTENTION TO LEVEL OF UMBILICUS), No mass Back Exam: normal inspection, normal range of motion, No CVA tenderness, No vertebral tenderness Extremity Exam: normal inspection, normal range of motion, pelvis stable Neurologic Exam: alert, oriented x 3, cooperative, track car operator II-XII nml as tested, normal mood/affect, sensation nml, No motor deficits Skin Exam: normal color, warm, dry Lymphatic Exam: No adenopathy SpO2 Interpretation: normal SpO2: 97 - CT Exams Abdomen/Pelvis CT Interpretation: Discussed w/radiologist (STABLE DUODENAL DIVERTICULUM, BILATERAL RENAL CYSTS, PARTIAL DUPLICATION RIGHT URETER, ) Ordered Tests: Active Orders 24 hr Category Date Time Status Catheter-Gilman Garcia STAT Care 07/07/18 11:10 Active Catheter-Gilman Garcia STAT Care 07/07/18 11:10 Active EKG-ER Only STAT Care 07/07/18 12:05 Active IV Insertion STAT Care 07/07/18 11:10 Active ABDOMEN AND PELVIS W/0 CONTRAS [CT] Stat Exams 07/07/18 11:10 Completed AMYLASE Stat Lab 07/07/18 11:30 Completed CBC W DIFF Stat Lab 07/07/18 11:30 Completed CMP Stat Lab 07/07/18 11:30 Completed LIPASE Stat Lab 07/07/18 11:30 Completed PROTIME WITH INR Stat Lab 07/07/18 11:30 Completed UA W/RFX UR CULTURE Stat Lab 07/07/18 11:33 Completed Medication Summary Generic Name Dose Route Start Last Admin Trade Name Freq PRN Reason Stop Dose Admin Sodium Chloride 1,000 mls @ 30 mls/hr 07/07/18 11:15 07/07/18 11:35 Sodium Chloride 0.9% 1000 Ml IV 08/06/18 11:14 30 mls/hr .Q24H ARIAN Administration Discontinued Medications Generic Name Dose Route Start Last Admin Trade Name Freq PRN Reason Stop Dose Admin Calcium Gluconate 1,000 mg 07/07/18 12:05 07/07/18 12:49 Calcium Gluconate 10% 1000 Mg IV 07/07/18 12:06 1,000 mg STAT ONE Administration Calcium Gluconate Confirm 07/07/18 12:38 Calcium Gluconate 10% 1000 Mg Administered 07/07/18 12:39 Dose 1,000 mg IV .STK-MED ONE Sodium Polystyrene Sulfonate 30 g 07/07/18 12:05 07/07/18 12:49 Kayexylate 15 Gm/60 Ml PO 07/07/18 12:06 30 g STAT ONE Administration Lab/Rad Data: Laboratory Result Diagrams 07/07/18 11:30 07/07/18 11:30 Laboratory Results 07/07/18 07/07/18 07/07/18 Range/Units 11:33 11:30 11:30 WBC (4.0-10.5) K/mm3 RBC (4.1-5.4) M/mm3 Hgb (12.0-16.0) gm/dl Hct (35-47) % MCV (78-100) fl MCH (26-32) pg MCHC (32-36) g/dl RDW (11.5-14.0) % Plt Count (150-450) K/mm3 MPV (6-9.5) fl Gran % (36.0-66.0) % Eos # (Auto) (0-0.5) Absolute Lymphs (auto) (1.0-4.6) Absolute Monos (auto) (0.0-1.3) Lymphocytes % (24.0-44.0) % Monocytes % (0.0-12.0) % Eosinophils % (0.00-5.0) % Basophils % (0.0-0.4) % Absolute Granulocytes (1.4-6.9) Basophils # (0-0.4) PT 21.0 H (9.95-12.35) SECONDS INR 1.80 (0.8-3.0) Sodium 125 L (137-145) mmol/L Potassium 5.3 H (3.5-5.1) mmol/L Chloride 89 L (98-107) mmol/L Carbon Dioxide 24 (22-30) mmol/L Anion Gap 17.1 H (5-15) MEQ/L BUN 37 H (7-17) mg/dL Creatinine 1.86 H (0.52-1.04) mg/dL Estimated GFR 27.4 ML/MIN Glucose 99 (74-106) mg/dL Calcium 10.2 (8.4-10.2) mg/dL Total Bilirubin 0.50 (0.2-1.3) mg/dL AST 14 (14-36) U/L ALT 15 (0-35) U/L Alkaline Phosphatase 51 (38-126) U/L Serum Total Protein 7.0 (6.3-8.2) g/dL Albumin 4.5 (3.5-5.0) g/dL Amylase 120 H (30-110) U/L Lipase 435 H (23-300) U/L Urine Color YELLOW (YELLOW) Urine Appearance CLEAR (CLEAR) Urine pH 5.0 (5-6) Ur Specific [place] 1.006 (1.005-1.025) Urine Protein NEGATIVE (Negative) Urine Ketones NEGATIVE (NEGATIVE) Urine Blood NEGATIVE (0-5) Josemanuel/ul Urine Nitrite NEGATIVE (NEGATIVE) Urine Bilirubin NEGATIVE (NEGATIVE) Urine Urobilinogen NEGATIVE (0-1) mg/dL Ur Leukocyte Esterase NEGATIVE (NEGATIVE) Urine WBC (Auto) NONE (0-5) /HPF Urine RBC (Auto) NONE (0-2) /HPF U Epithel Cells (Auto) NONE (FEW) /HPF Urine Bacteria (Auto) MODERATE (NEGATIVE) /HPF Urine Mucus (Auto) SLIGHT (NEGATIVE) /HPF Urine Culture Reflexed NO (NO) Urine Glucose NEGATIVE (NEGATIVE) mg/dL 07/07/18 Range/Units 11:30 WBC 9.5 (4.0-10.5) K/mm3 RBC 3.63 L (4.1-5.4) M/mm3 Hgb 11.0 L (12.0-16.0) gm/dl Hct 34.7 L (35-47) % MCV 95.6 (78-100) fl MCH 30.3 (26-32) pg MCHC 31.7 L (32-36) g/dl RDW 14.2 H (11.5-14.0) % Plt Count 350 (150-450) K/mm3 MPV 9.0 (6-9.5) fl Gran % 51.7 (36.0-66.0) % Eos # (Auto) 0.03 (0-0.5) Absolute Lymphs (auto) 3.72 (1.0-4.6) Absolute Monos (auto) 0.83 (0.0-1.3) Lymphocytes % 39.1 (24.0-44.0) % Monocytes % 8.7 (0.0-12.0) % Eosinophils % 0.3 (0.00-5.0) % Basophils % 0.2 (0.0-0.4) % Absolute Granulocytes 4.92 (1.4-6.9) Basophils # 0.02 (0-0.4) PT (9.95-12.35) SECONDS INR (0.8-3.0) Sodium (137-145) mmol/L Potassium (3.5-5.1) mmol/L Chloride (98-107) mmol/L Carbon Dioxide (22-30) mmol/L Anion Gap (5-15) MEQ/L BUN (7-17) mg/dL Creatinine (0.52-1.04) mg/dL Estimated GFR ML/MIN Glucose (74-106) mg/dL Calcium (8.4-10.2) mg/dL Total Bilirubin (0.2-1.3) mg/dL AST (14-36) U/L ALT (0-35) U/L Alkaline Phosphatase (38-126) U/L Serum Total Protein (6.3-8.2) g/dL Albumin (3.5-5.0) g/dL Amylase (30-110) U/L Lipase (23-300) U/L Urine Color (YELLOW) Urine Appearance (CLEAR) Urine pH (5-6) Ur Specific [place] (1.005-1.025) Urine Protein (Negative) Urine Ketones (NEGATIVE) Urine Blood (0-5) Josemanuel/ul Urine Nitrite (NEGATIVE) Urine Bilirubin (NEGATIVE) Urine Urobilinogen (0-1) mg/dL Ur Leukocyte Esterase (NEGATIVE) Urine WBC (Auto) (0-5) /HPF Urine RBC (Auto) (0-2) /HPF U Epithel Cells (Auto) (FEW) /HPF Urine Bacteria (Auto) (NEGATIVE) /HPF Urine Mucus (Auto) (NEGATIVE) /HPF Urine Culture Reflexed (NO) Urine Glucose (NEGATIVE) mg/dL - Progress Progress Note: 07/07/18 11:31 GARCIA CATHETER WITH INITIAL URINE OUTPUT 200ML 07/07/18 13:00, LABS REVIEWED K-5.3, NA-125, CREA-1.86 BUN-37, ADMINISTERED CA -GLUCONATE 1GM IVPB, AND NA POLYSTYRENE 30GM ORALLY 07/07/18 13:02, ON 06/10/2018 BU26, CREA-1.02, K-4.1 07/07/18 13:09 Discussed with : Ankita (DISCUSSED WITH DR VILLALTA AT 1300 FOR OBSERVATION) - Departure Time of Disposition: 13:15 Departure Disposition: Observation Clinical Impression: ACUTE HYPERKALEMIA, ACUTE HYPONATREMIA, RENAL INSUFFICIENCY Condition: Stable Critical Care Time: No Referrals: CONRADO VILLALTA MD [Primary Care Provider] -
[2018-07-07] MEDS ORDERED: Sodium Chloride 0.9% 1000 ML 1,000 ML IV SCH ×2 (11:15→13:30)
[2018-07-07] MEDS ORDERED: Sodium Chloride 0.9% 1000 ML 1,000 ML ONE (11:25)
[2018-07-07 11:38] LABS: BASOPHIL % 0.2 % (0.0-0.4); Basophil (Absolute #) 0.02 (0-0.4); Eosinophil % 0.3 % (0.00-5.0); Eosinophil (Absolute #) 0.03 (0-0.5); Granulocyte Absolute (ANC) 4.92 (1.4-6.9); Granulocytes % 51.7 % (36.0-66.0); Hematocrit 34.7 % (35-47); Lymphocyte (Absolute #) 3.72 (1.0-4.6); Lymphocytes % 39.1 % (24.0-44.0); Mean Cell Volume 95.6 fl (78-100); Mean Corpuscular Hemoglobin 30.3 pg (26-32); Mean Corpuscular Hgb Concent. 31.7 g/dl (32-36); Monocyte (Absolute #) 0.83 (0.0-1.3); Monocytes % 8.7 % (0.0-12.0); Platelet Count 350 K/mm3 (150-450); Red Blood Count 3.63 M/mm3 (4.1-5.4); Red Cell Distribution Width 14.2 % (11.5-14.0); White Blood Count 9.5 K/mm3 (4.0-10.5)
[2018-07-07 11:42] LABS: INR 1.8 (0.8-3.0)
[2018-07-07 11:47] LABS: ALBUMIN 4.5 g/dL (3.5-5.0); ANION GAP 17.1 MEQ/L (5-15); BILIRUBIN,TOTAL 0.5 mg/dL (0.2-1.3); Calcium 10.2 mg/dL (8.4-10.2); Creatinine 1 1.86 mg/dL (0.52-1.04); Potassium 5.3 mmol/L (3.5-5.1)
[2018-07-07 11:47] LABS: Appearance CLEAR (CLEAR); Bacteria MODERATE /HPF (NEGATIVE); Bilirubin NEGATIVE (NEGATIVE); Blood NEGATIVE Ery/ul (0-5); Glucose NEGATIVE (NEGATIVE); Ketones NEGATIVE (NEGATIVE); Leukocyte Esterase NEGATIVE (NEGATIVE); Mucus SLIGHT /HPF (NEGATIVE); Nitrite NEGATIVE (NEGATIVE); Protein,Urine Dip NEGATIVE (Negative); Specific Gravity 1.006 (1.005-1.025); Urobilinogen NEGATIVE mg/dL (0-1)
[2018-07-07] MEDS ORDERED: Kayexylate 15 GM/60 ML PO ONE (12:05)
[2018-07-07] MEDS ORDERED: Calcium Gluconate 10% 1000 MG IV ONE ×2 (12:05→12:38)
--- NOTE | 2018-07-07 12:18 | XRAY ---
Indication: Trouble urinating. Lower abdomen pain. Multiple contiguous axial images obtained through the abdomen and pelvis without contrast as ordered. Comparison: March 08, 2018. Lung bases again demonstrates mild bibasilar atelectasis/scarring. No infiltrate or effusion. Heart is not enlarged. New Myles balloon catheter empties the urinary bladder. Noncontrasted stomach and bowel loops appear nonobstructed. Stable descending duodenal diverticulum, appendicolith without appendicitis, and sigmoid diverticulosis without diverticulitis. Also stable scattered hepatic/splenic calcified granulomas, bilateral renal cysts, partial duplication right ureter, and hysterectomy. Remaining liver, gallbladder, pancreas, spleen, adrenal glands, kidneys, and ureters appear unremarkable for noncontrast exam. Stable mild aortoiliac calcifications without AAA. Osseous structures again demonstrates moderate multilevel degenerative spondylosis with grade 1 L4 spondylolisthesis and right total hip arthroplasty. Stable small fatty umbilical hernia. Impression: 1. New Myles catheter empties the urinary bladder. 2. Stable duodenal diverticulum, sigmoid diverticulosis, appendicolith, bilateral renal cysts, partial duplication right ureter, and small fatty umbilical hernia. 3. Remaining CT abdomen/pelvis without contrast exam is negative. CT DI 23.59
[2018-07-07] MEDS ORDERED: TYLENOL 325 MG PO PRN (13:19)
[2018-07-07] MEDS ORDERED: Zofran 4 MG/2 ML VIAL IV PRN ×2 (13:19→17:01)
[2018-07-07] MEDS: NORCO 7.5/325 MG TAB PO PRN ×2 (14:34→23:12)
[2018-07-07 14:38] LABS: ANION GAP 21.3 MEQ/L (5-15); Calcium 11.5 mg/dL (8.4-10.2); Creatinine 1 1.85 mg/dL (0.52-1.04); Potassium 4.6 mmol/L (3.5-5.1)
--- NOTE | 2018-07-07 15:18 | HP ---
HISTORY OF PRESENT ILLNESS: Sylvia Patel is an 87 year old woman with past medical history of hypertension, congestive heart failure, coronary artery disease, pulmonary embolism, prior history of colitis, osteoarthritis. She states recently her medications were changed by her crisis counselor four days ago and she was placed on Lasix. She presented to the emergency room earlier today with symptoms of lower abdominal pain, inability to urinate. She stated inability to urinate started at 0330 hours and was associated with pain in lower abdominal region. There was no reported history of nausea, vomiting, fever. Upon evaluation in the emergency room she was noted to have blood pressure 139/79, heart rate of 87, respiratory rate 16, temperature 97.6F. Oxygen saturation 97%. After initial work up she was treated with normal saline 1 liter, calcium gluconate x1, Kayexalate x1. Myles catheter was placed and the patient was admitted to the medical floor. At the time of this evaluation she was just admitted to the medical floor. She state her lower abdominal discomfort is improving, complains of fatigue, denies any other complaints. PAST MEDICAL HISTORY: As noted above and gastroesophageal reflux disease. PAST SURGICAL HISTORY: Hysterectomy. Right hip replacement. Bladder surgery. ALLERGIES: CODEINE, PENICILLIN, SULFA, CEFALEXIN, CIPROFLOXACIN. MEDICATIONS: Home medications were reviewed. FAMILY HISTORY: Noncontributory. SOCIAL HISTORY: The patient lives at home. No history of smoking. REVIEW OF SYSTEMS: Denies headache or dizziness. Complains of fatigue. Denies fever. Denies chest pain, increased shortness of breath or cough. Complains of lower abdominal discomfort. No nausea or vomiting. Complains of inability to urinate since this a.m. Denies constipation or diarrhea. PHYSICAL EXAMINATION: An elderly obese woman lying comfortably in bed, not in acute distress. VITAL SIGNS: Blood pressure 104/68, heart rate 100, respiratory rate 18. Oxygen saturation 90%. HEENT: Normocephalic. Pallor is present. No icterus is noted. NECK: No JVD is present. CVS: S1, S2 present. RESPIRATORY: Breath sounds are bilaterally diminished, clear to auscultation anteriorly. ABDOMEN: Obese, soft, mild suprapubic tenderness present. No guarding or rigidity present. NEURO: She is alert, oriented x3. EXTREMITIES: No edema on bilateral lower extremities. LABORATORY DATA AND TESTS: Labs from today show international normalized ratio of 1.80. CBC notable for white blood cell 9.9, hemoglobin 11, hematocrit 34.7. Initial BMP was notable for sodium 125, potassium 5.3, chloride 89, bicarbonate 24, BUN 27, creatinine 1.86, glucose 99. Amylase 120. Lipase 435. UA was essentially negative. Follow up BMP showed sodium 129, potassium 4.6, BUN 35, creatinine 1.85, glucose 124, calcium 11.5. CT scan of abdomen and pelvis showed presence of Myles catheter, stable diverticulosis, appendicolith, bilateral renal cysts, partial duplication of right ureter, small fatty umbilical hernia. ASSESSMENT: An 87 year old woman with impression: 1) Lower abdominal pain. 2) Urinary retention status post Myles catheter placement. 3) Hyponatremia. 4) Hyperkalemia resolved status post treatment. 5) History of hypertension/congestive heart failure. 6) Chronic renal insufficiency. 7) Pulmonary embolism. 8) Osteoarthritis. 9) Obesity. 10) Elevated amylase/lipase. PLAN: The patient is admitted for further monitoring and management. Myles catheter was placed with relief of urinary retention, will continue that for now. Continue cautious IV hydration. Continue to follow CBC and electrolytes. Continue to follow CBC and electrolytes, lipase. The plan was discussed with the patient and family. They seemed to be in understanding and agreement. The plan was discussed with patient's nurse, Laquita.
[2018-07-07] MEDS ORDERED: DILAUDID 2 MG INJECTION IV STA (17:00)
[2018-07-07] MEDS ORDERED: Apresoline 25 MG TABLET PO SCH (17:00)
[2018-07-07] MEDS ORDERED: DILAUDID 2 MG INJECTION IV PRN (17:00)
[2018-07-07 18:36] LABS: 027 TOX PROD PRESUMPTIVE NEGATIVE (NEGATIVE); TOXIGENIC C. DIFF ORG POSITIVE (NEGATIVE)
[2018-07-07] MEDS ORDERED: FLAGYL 500 MG IVPB 500 MG/100 ML BAG IV ONE (19:46)
[2018-07-07] MEDS ORDERED: FLAGYL 500 MG IVPB 500 MG/100 ML BAG IV SCH (20:00)
[2018-07-07 20:25] LABS: MAGNESIUM 1.2 mg/dL (1.6-2.3)
[2018-07-07 20:44] LABS: TROPONIN 0.033 ng/mL (0.000-0.034)
[2018-07-07] MEDS ORDERED: NON-FORMULARY ITEM (Omeprazole [Omeprazole] 40 MG) PO SCH (22:00)
[2018-07-07] MEDS: COREG 12.5 MG PO SCH (22:26)
[2018-07-07] MEDS: Protonix 40MG Tablet PO SCH (22:26)
[2018-07-07] MEDS: ELIQUIS 2.5 MG TABLET PO SCH (22:26)
[2018-07-07] MEDS: Apresoline 25 MG TABLET PO SCH (22:26)
[2018-07-07] MEDS: DELTASONE 5 MG PO SCH (22:26)
[2018-07-07] MEDS: VANCOMYCIN HCL CAPSULE PO SCH (22:27)
[2018-07-07] MEDS: Senokot-S Tablet PO SCH (22:27)
[2018-07-07] MEDS: ZOCOR 20MG PO SCH (22:27)
[2018-07-08] MEDS: Sodium Chloride 0.9% 10 ML FLUSH Syringe IV SCH ×3 (05:08→21:40)
[2018-07-08 05:56] LABS: BASOPHIL % 0.1 % (0.0-0.4); Basophil (Absolute #) 0.01 (0-0.4); Eosinophil % 0.2 % (0.00-5.0); Eosinophil (Absolute #) 0.02 (0-0.5); Granulocyte Absolute (ANC) 5.15 (1.4-6.9); Granulocytes % 53.3 % (36.0-66.0); Hematocrit 34.1 % (35-47); Hemoglobin 11.1 gm/dl (12.0-16.0); Lymphocyte (Absolute #) 3.72 (1.0-4.6); Lymphocytes % 38.5 % (24.0-44.0); Mean Cell Volume 94.7 fl (78-100); Mean Corpuscular Hemoglobin 30.8 pg (26-32); Mean Corpuscular Hgb Concent. 32.6 g/dl (32-36); Mean Platelet Volume 9.2 fl (6-9.5); Monocyte (Absolute #) 0.76 (0.0-1.3); Monocytes % 7.9 % (0.0-12.0); Platelet Count 351 K/mm3 (150-450); Red Cell Distribution Width 14.1 % (11.5-14.0); White Blood Count 9.7 K/mm3 (4.0-10.5)
[2018-07-08 06:06] LABS: ANION GAP 17.1 MEQ/L (5-15); BILIRUBIN,TOTAL 0.6 mg/dL (0.2-1.3); Calcium 9.8 mg/dL (8.4-10.2); Creatinine 1 1.74 mg/dL (0.52-1.04); Potassium 3.7 mmol/L (3.5-5.1); Total Protein 6.3 g/dL (6.3-8.2)
[2018-07-08] MEDS ORDERED: Mobic 7.5 MG PO SCH (10:00)
[2018-07-08] MEDS ORDERED: MAG-OX 400 PO SCH (10:00)
[2018-07-08] MEDS ORDERED: ZYLOPRIM 100 MG PO SCH (10:00)
[2018-07-08] MEDS ORDERED: Cozaar 50 MG PO SCH (10:00)
[2018-07-08] MEDS ORDERED: hydroDIURIL 25 MG PO SCH (10:00)
[2018-07-08] MEDS: COREG 12.5 MG PO SCH ×2 (10:46→21:39)
[2018-07-08] MEDS: Apresoline 25 MG TABLET PO SCH ×2 (10:46→21:38)
[2018-07-08] MEDS: Protonix 40MG Tablet PO SCH ×2 (10:46→21:39)
[2018-07-08] MEDS: DELTASONE 5 MG PO SCH ×2 (10:46→21:39)
[2018-07-08] MEDS: ELIQUIS 2.5 MG TABLET PO SCH ×2 (10:46→21:39)
[2018-07-08] MEDS: VANCOMYCIN HCL CAPSULE PO SCH ×4 (10:47→21:39)
[2018-07-08] MEDS: Senokot-S Tablet PO SCH ×2 (10:47→21:38)
[2018-07-08] MEDS ORDERED: Sodium Chloride 0.9% 1000 ML 1,000 ML IV SCH (14:15)
[2018-07-08] MEDS: NORCO 7.5/325 MG TAB PO PRN ×2 (14:26→23:02)
[2018-07-08 19:35] LABS: MAGNESIUM 1.2 mg/dL (1.6-2.3)
[2018-07-08 20:00] LABS: TROPONIN 0.041 ng/mL (0.000-0.034)
[2018-07-08] MEDS ORDERED: Magnesium 1 Gm / 100 Ml D5W*** 200 ML IV ONE (20:27)
[2018-07-08] MEDS: Magnesium 1 Gm / 100 Ml D5W*** 100 ML IV SCH ×2 (20:31→21:31)
[2018-07-08 21:04] VITALS: BP 113/63; PULSE 99; O2SAT 95
[2018-07-08] MEDS: ZOCOR 20MG PO SCH (21:38)
--- NOTE | 2018-07-10 13:51 | PROG NOTE ---
DATE: 07/08/2018 Chart is reviewed and events noted. The patient had increased abdominal pain yesterday afternoon/evening and was treated with Dilaudid which helped. She also had some nausea for which she was treated. She had episodes of diarrhea and was noted to have stool Clostridium difficile toxin positive and was placed on Vancomycin. Also last night she did have some changes noted however the patient did remain asymptomatic and her vitals were stable per nursing. At the time of examination this afternoon the patient was alert, awake. She stated her abdominal pain had improved, was tolerating diet and still having some diarrhea. Denied chest pain, increased shortness of breath, palpitations or dizziness. Denied any other complaints except fatigue. Overall feeling better. Appeared comfortable. PHYSICAL EXAMINATION: VITAL SIGNS: Blood pressure 110/58, heart rate 105, respiratory rate 18, temperature 98.6F. Oxygen saturation 96% on room air. HEENT: Pallor is present. NECK: No JVD is present. CVS: S1, S2 present. RESPIRATORY: Breath sounds are bilaterally diminished and clear to auscultation. ABDOMEN: Obese, soft, nontender. NEURO: She is alert, oriented x3. EXTREMITIES: No edema on bilateral lower extremities. LABORATORY DATA AND TESTS: Labs from today showed unremarkable CBC except hemoglobin 11.1. CMP notable for sodium 129, BUN 35, creatinine 1.74, glucose 108. Liver function test unremarkable. Lipase 372 (improved). Medications were reviewed. ASSESSMENT: An 87 year old woman with impression: 1) Lower abdominal pain. 2) Possible Clostridium difficile colitis. 3) Urinary retention, resolved, status post Myles catheter placement. 4) Hyponatremia. 5) Elevated lipase likely pancreatitis. 6) Hypertension/congestive heart failure. 7) Cardiac arrhythmia. 8) Chronic renal insufficiency. 9) Pulmonary embolism. 10) Osteoarthritis. PLAN: Continue IV fluids, PRN IV analgesics, antiemetic. Continue p.o. Vancomycin (reportedly the patient did have problems with Flagyl before as informed by the family and Flagyl was discontinued). Continue to follow CBC and electrolytes. With regards to history of cardiac arrhythmia, the patient's blood pressure was normal. She had remained asymptomatic. Will continue to monitor. If cardiology input is needed will likely transfer the patient to [place]. The patient's clinical condition, available work-up results and plan of management were discussed with the patient and her daughter. They seemed to be in understanding and agreement. The plan was discussed with the patient's nurse, Krystal.
[2018-07-11] MEDS ORDERED: VITAMIN D2 PO SCH (10:00)
[2018-07-11] MEDS ORDERED: Cyanocobalamin B-12 1000 MCG/ML IJ SCH (10:00)
== END 2018-07-08 23:00 | disposition short-term general hospital (02) | DRG 392 ==
LOC: ED 10:42 → MED SURG 14:03 → OBSVTOIN 07-08 12:00
PROVIDERS: ADMIT General Practice; ATTEND General Practice
DX: R10.30 Lower abdominal pain, unspecified (principal); E87.1 Hypo-osmolality and hyponatremia; N28.9 Disorder of kidney and ureter, unspecified; N39.0 Urinary tract infection, site not specified; E87.5 Hyperkalemia; R33.9 Retention of urine, unspecified; R19.7 Diarrhea, unspecified; K57.90 Diverticulosis of intestine, part unspecified, without perforation or abscess without bleeding; N28.1 Cyst of kidney, acquired; K42.9 Umbilical hernia without obstruction or gangrene; B96.89 Other specified bacterial agents as the cause of diseases classified elsewhere; I10 Essential (primary) hypertension; R79.89 Other specified abnormal findings of blood chemistry; Z86.711 Personal history of pulmonary embolism; N18.9 Chronic kidney disease, unspecified; M19.90 Unspecified osteoarthritis, unspecified site; E66.9 Obesity, unspecified; R79.9 Abnormal finding of blood chemistry, unspecified; R11.0 Nausea; I50.9 Heart failure, unspecified; I49.9 Cardiac arrhythmia, unspecified; R53.83 Other fatigue; Z79.01 Long term (current) use of anticoagulants; Z79.899 Other long term (current) drug therapy
CPT/HCPCS: 36000; 36415; 51702; 74176; 80048; 80053; 81001; 82150; 83690; 83735; 84484; 85025; 85610; 87493; 93005; 96360; 96361; 96374; 99285; G0378; J0610; J1170; J3475; A9270-GY

== ENCOUNTER 2018-11-05 08:04 | Emergency (ER) | payer MEDICARE, OTHER ==
--- NOTE | 2018-11-05 08:36 | ERPHSYRPT ---
- History of Present Illness Time Seen by Provider: 11/05/18 08:34 Source: patient Physician History: unable to urinate since AM. When she came to ER has about 200 cc urine output, denies any other complaints Timing/Duration: today Activites at Onset: none Severity of Pain-Max: none Severity of Pain-Current: none Sexual intercourse history: non-contributory Modifying Factors: Improves With: nothing Associated Symptoms: other (unable to urinate since AM) Allergies/Adverse Reactions: codeine [Codeine] Allergy (Mild, Verified 11/05/18 08:45) Rash Penicillins Allergy (Unknown, Verified 11/05/18 08:45) RASH/UPSET STOMACH Sulfa (Sulfonamide Antibiotics) [Sulfa(Sulfonamide Antibiotics)] Allergy ( Unknown, Verified 11/05/18 08:45) Rash cephalexin [From Keflex] Allergy (Verified 11/05/18 08:45) ciprofloxacin [From Cipro] Allergy (Verified 11/05/18 08:45) metronidazole [From Flagyl] Adverse Reaction (Verified 11/05/18 08:45) Nausea and Vomiting Home Medications: Allopurinol 100 mg [Zyloprim 100 mg] 100 mg PO DAILY 04/09/17 [History] Carvedilol 12.5 mg [Coreg 12.5 mg] 12.5 mg PO BID 04/09/17 [History] Cyanocobalamin 1000 Mcg/ml [Cyanocobalamin B-12 1000 MCG/ML] 1,000 mcg IJ WEEKLY 04/09/17 [History] Ergocalciferol (Vitamin D2) [Vitamin D2] 50,000 iu PO WEEKLY 04/09/17 [History] HydrALAzine HCL 25 MG TAB [Apresoline 25 MG TABLET] 50 mg PO BID 04/09/17 [History] Hydrochlorothiazide 25 mg [hydroDIURIL 25 MG] 25 mg PO DAILY 04/09/17 [ History] Hydrocodone Bit/Acetaminophen [[place] 7.5-325 Tablet] 1 each PO Q6H PRN PRN 04/09 [History] Magnesium Oxide 400 mg [Mag-Ox 400] 400 mg PO DAILY 04/09/17 [History] Meloxicam 7.5 mg PO DAILY 04/09/17 [History] Sennosides/Docusate Sodium [Senokot-S Tablet] 1 each PO BID 04/09/17 [History] Simvastatin 20Mg [Zocor 20Mg] 20 mg PO HS 04/09/17 [History] Spironolactone 25 mg [Aldactone 25 MG] 25 mg PO BID 04/09/17 [History] Losartan Potassium 100 mg PO DAILY 03/08/18 [History] predniSONE [Prednisone] 5 mg PO BID 03/08/18 [History] Apixaban [Eliquis] 5 mg PO BID 07/07/18 [History] Furosemide 40 mg [Lasix 40 MG] 40 mg PO DAILY 07/07/18 [History] Hx Tetanus, Diphtheria Vaccination/Date Given: Yes Hx Influenza Vaccination/Date Given: Yes Hx Pneumococcal Vaccination/Date Given: Yes - Review of Systems Constitutional: No Fever, No Chills Eyes: No Symptoms Ears, Nose, & Throat: No Symptoms Respiratory: No Cough, No Dyspnea Cardiac: No Chest Pain, No Edema, No Syncope Abdominal/Gastrointestinal: No Abdominal Pain, No Nausea, No Vomiting, No Diarrhea Genitourinary Symptoms: No Dysuria Musculoskeletal: No Back Pain, No Neck Pain Skin: No Rash Neurological: No Dizziness, No Focal Weakness, No Sensory Changes Psychological: No Symptoms Endocrine: No Symptoms All Other Systems: Reviewed and Negative - Past Medical History Pertinent Past Medical History: Yes Neurological History: No Pertinent History ENT History: No Pertinent History Cardiac History: Hypertension Respiratory History: Pulmonary Embolism Endocrine Medical History: Other Musculoskeletal History: Osteoarthritis, Osteoporosis GI Medical History: Diverticulitis, GERD, Hernia History: Other Psycho-Social History: No Pertinent History Female Reproductive Disorders: No Pertinent History Other Medical History: She has a kidney doctor due to being on HTN medication for a long time. - Past Surgical History Past Surgical History: Yes Neuro Surgical History: No Pertinent History Cardiac: No Pertinent History Respiratory: No Pertinent History Gastrointestinal: No Pertinent History Genitourinary: No Pertinent History Musculoskeletal: Joint Replacement Female Surgical History: Hysterectomy Other Surgical History: RIGHT HIP REPLACEMENT, BLADDER SLING - Social History Smoking Status: Never smoker Exposure to second hand smoke: No Alcohol Use: None Drug Use: none Patient Lives Alone: Yes Significant Family History: no pertinent family hx - Nursing Vital Signs Nursing Vital Signs: Initial Vital Signs Temperature 98.1 F 11/05/18 08:30 Pulse Rate 75 11/05/18 08:30 Respiratory Rate 18 11/05/18 08:30 Blood Pressure 139/75 11/05/18 08:30 O2 Sat by Pulse Oximetry 98 11/05/18 08:30 Pain Scale Pain Intensity 3 - Physical Exam General Appearance: no apparent distress, alert Eye Exam: PERRL/EOMI, eyes nml inspection Ears, Nose, Throat Exam: normal ENT inspection, TMs normal, pharynx normal, moist mucous membranes Neck Exam: normal inspection, non-tender, supple, full range of motion Respiratory Exam: normal breath sounds, lungs clear, No respiratory distress Cardiovascular Exam: regular rate/rhythm, normal heart sounds, normal peripheral pulses Gastrointestinal/Abdomen Exam: soft, No tenderness, No mass Back Exam: normal inspection, normal range of motion, No CVA tenderness, No vertebral tenderness Extremity Exam: normal inspection, normal range of motion, pelvis stable Neurologic Exam: alert, oriented x 3, cooperative, 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, normal mood/affect, sensation nml, No motor deficits Skin Exam: normal color, warm, dry Lymphatic Exam: No adenopathy - Course Nursing assessment & vital signs reviewed: Yes Ordered Tests: Active Orders 24 hr Category Date Time Status BMP Stat Lab 11/05/18 08:53 Completed CBC W DIFF Stat Lab 11/05/18 08:53 Completed UA W/RFX UR CULTURE Stat Lab 11/05/18 08:30 Completed Medication Summary Discontinued Medications Generic Name Dose Route Start Last Admin Trade Name Freq PRN Reason Stop Dose Admin Doxycycline Hyclate 100 mg 11/05/18 09:26 Vibramycin 100 Mg PO 11/05/18 09:27 STAT ONE Lab/Rad Data: Laboratory Result Diagrams 11/05/18 08:53 11/05/18 08:53 Laboratory Results 11/05/18 11/05/18 11/05/18 Range/Units 08:53 08:53 08:30 WBC 7.1 (4.0-10.5) K/mm3 RBC 3.42 L (4.1-5.4) M/mm3 Hgb 11.0 L (12.0-16.0) gm/dl Hct 33.8 L (35-47) % MCV 98.8 (78-100) fl MCH 32.1 H (26-32) pg MCHC 32.5 (32-36) g/dl RDW 14.6 H (11.5-14.0) % Plt Count 280 (150-450) K/mm3 MPV 9.2 (6-9.5) fl Gran % 53.8 (36.0-66.0) % Eos # (Auto) 0.02 (0-0.5) Absolute Lymphs (auto) 2.58 (1.0-4.6) Absolute Monos (auto) 0.69 (0.0-1.3) Lymphocytes % 36.1 (24.0-44.0) % Monocytes % 9.7 (0.0-12.0) % Eosinophils % 0.3 (0.00-5.0) % Basophils % 0.1 (0.0-0.4) % Absolute Granulocytes 3.84 (1.4-6.9) Basophils # 0.01 (0-0.4) Sodium 131 L (137-145) mmol/L Potassium 4.1 (3.5-5.1) mmol/L Chloride 95 L (98-107) mmol/L Carbon Dioxide 25 (22-30) mmol/L Anion Gap 15.8 H (5-15) MEQ/L BUN 23 H (7-17) mg/dL Creatinine 0.92 (0.52-1.04) mg/dL Estimated GFR > 60.0 ML/MIN Glucose 101 (74-106) mg/dL Calcium 10.1 (8.4-10.2) mg/dL Urine Color YELLOW (YELLOW) Urine Appearance CLEAR (CLEAR) Urine pH 6.0 (5-6) Ur Specific [place] 1.012 (1.005-1.025) Urine Protein NEGATIVE (Negative) Urine Ketones NEGATIVE (NEGATIVE) Urine Blood NEGATIVE (0-5) Josemanuel/ul Urine Nitrite POSITIVE (NEGATIVE) Urine Bilirubin NEGATIVE (NEGATIVE) Urine Urobilinogen NEGATIVE (0-1) mg/dL Ur Leukocyte Esterase NEGATIVE (NEGATIVE) Urine WBC (Auto) 3-5 (0-5) /HPF Urine RBC (Auto) NONE (0-2) /HPF U Epithel Cells (Auto) NONE (FEW) /HPF Urine Bacteria (Auto) FEW (NEGATIVE) /HPF Urine Culture Reflexed NO (NO) Urine Glucose NEGATIVE (NEGATIVE) mg/dL - Progress Progress: improved Air Movement: good Blood Culture(s) Obtained: No Antibiotics given: Yes Counseled pt/family regarding: lab results, diagnosis, need for follow-up - Departure Departure Disposition: Home Clinical Impression: Urinary retention with incomplete bladder emptying UTI (urinary tract infection) Qualifiers: Urinary tract infection type: site unspecified Hematuria presence: without hematuria Qualified Code(s): N39.0 - Urinary tract infection, site not specified Condition: Stable Critical Care Time: No Referrals: CONRADO VILLALTA MD [Primary Care Provider] - Instructions: Urinary Retention (DC), Urinary Tract Infection, Adult (DC) Additional Instructions: URINARY TRACT INFECTION 1. You will need to drink plenty of fluids in order to keep your urinary system flushed. These fluids should mainly consist of water and juices. 2. Take medications as directed. You need to completely finish any antiobiotic prescription given. 3. Try to avoid coffee, tea, alcohol, and seasoned foods as they may cause bladder irritation. 4. If signs and symptoms persist after 3-4 days, you will need to follow up with your family physician. 5. Female Patients: A. Avoid intercourse for 3-4 days. B. Empty bladder before and after intercourse to reduce risk of re- infection. C. After emptying bladder, wipe from front to back to reduce the risk of re- infection. Discharge/Care Plan ANI DOLAN was seen on 11/05/18 in the Emergency Room. The patient was counseled regarding Diagnosis,Lab results, Imaging studies, need for follow up and when to return to the Emergency Room. Prescriptions given: Discharge Note I have spoken with the patient and/or caregivers. I have explained the patient' s condition, diagnosis and treatment plan based on the information available to me at this time. I have answered the patient's and/or caregiver's questions and addressed any concerns. The patient and/or caregivers have as good understanding of the patient's diagnosis, condition and treatment plan as can be expected at this point. The vital signs have been stable. The patient's condition is stable and appropriate for discharge from the emergency department. The patient will pursue further outpatient evaluation with the primary care physician or other designated or consulting physician as outlined in the discharge instructions. The patient and/or caregivers are agreeable to this plan of care and follow-up instructions have been explained in detail. The patient and/or caregivers have received these instruction. The patient/and or caregivers are aware that any significant change in condition or worsening of symptoms should prompt an immediate return to this or the closest emergency department or call 911. Prescriptions: Doxycycline Hyclate 100 mg [Vibramycin 100 MG] 100 mg PO BID #14 tab
[2018-11-05 08:43] VITALS: BP 139/75; PULSE 75; O2SAT 98
[2018-11-05 09:02] LABS: BASOPHIL % 0.1 % (0.0-0.4); Basophil (Absolute #) 0.01 (0-0.4); Eosinophil % 0.3 % (0.00-5.0); Eosinophil (Absolute #) 0.02 (0-0.5); Granulocyte Absolute (ANC) 3.84 (1.4-6.9); Granulocytes % 53.8 % (36.0-66.0); Hematocrit 33.8 % (35-47); Lymphocyte (Absolute #) 2.58 (1.0-4.6); Lymphocytes % 36.1 % (24.0-44.0); Mean Cell Volume 98.8 fl (78-100); Mean Corpuscular Hgb Concent. 32.5 g/dl (32-36); Mean Platelet Volume 9.2 fl (6-9.5); Monocyte (Absolute #) 0.69 (0.0-1.3); Monocytes % 9.7 % (0.0-12.0); Platelet Count 280 K/mm3 (150-450); Red Blood Count 3.42 M/mm3 (4.1-5.4); Red Cell Distribution Width 14.6 % (11.5-14.0); White Blood Count 7.1 K/mm3 (4.0-10.5)
[2018-11-05 09:04] LABS: Mean Corpuscular Hemoglobin 32.1 pg (26-32)
[2018-11-05 09:04] LABS: Appearance CLEAR (CLEAR); Bacteria FEW /HPF (NEGATIVE); Bilirubin NEGATIVE (NEGATIVE); Blood NEGATIVE Ery/ul (0-5); Glucose NEGATIVE (NEGATIVE); Ketones NEGATIVE (NEGATIVE); Leukocyte Esterase NEGATIVE (NEGATIVE); Nitrite POSITIVE (NEGATIVE); Protein,Urine Dip NEGATIVE (Negative); Specific Gravity 1.012 (1.005-1.025); Urobilinogen NEGATIVE mg/dL (0-1)
[2018-11-05 09:13] LABS: ANION GAP 15.8 MEQ/L (5-15); BLOOD UREA NITROGEN 23 mg/dL (7-17); CHLORIDE 95 mmol/L (98-107); Calcium 10.1 mg/dL (8.4-10.2); Carbon Dioxide 25 mmol/L (22-30); Creatinine 1 0.92 mg/dL (0.52-1.04); Glucose 101 mg/dL (74-106); Potassium 4.1 mmol/L (3.5-5.1); SODIUM 131 mmol/L (137-145)
[2018-11-05] MEDS ORDERED: Vibramycin 100 MG PO ONE (09:26)
[2018-11-05] MEDS ORDERED: Vibramycin 100 MG ONE (09:46)
== END 2018-11-05 09:57 | disposition home or self-care (01) ==
LOC: ED 08:04
DX: R33.9 Retention of urine, unspecified (principal); N39.0 Urinary tract infection, site not specified; Z79.899 Other long term (current) drug therapy; Z79.891 Long term (current) use of opiate analgesic; I10 Essential (primary) hypertension; Z86.711 Personal history of pulmonary embolism
CPT/HCPCS: 36415; 80048; 81001; 85025; 99283; A9270-GY

== ENCOUNTER 2020-08-27 07:37 | Observation (INO) | payer MEDICARE, OTHER ==
[2020-08-27] MEDS ORDERED: DUONEB 0.5-3 MG/3 ml Neb IH ONE ×2 (07:46→07:53)
[2020-08-27] MEDS ORDERED: solu-MEDROL 125 MG IV ONE (07:46)
[2020-08-27] MEDS ORDERED: BABY ASPIRIN 81 MG CHEW PO ONE (07:47)
--- NOTE | 2020-08-27 07:52 | ERPHSYRPT ---
- History of Present Illness Time Seen by Provider: 08/27/20 07:45 Source: patient, EMS Exam Limitations: no limitations Patient Subjective Stated Complaint: pt had sudden onset of sob at 0400 this morning, Triage Nursing Assessment: pt alert, resp easy , skin w/d/p, has o2 at 6 l nc, she states she feels so much better with oxygen, slight edema to lower legs, Physician History: 89 years old female with history of hypertension, hyperlipidemia, pulmonary embolism not on any anticoagulant currently presented in the ER with sudden onset shortness of breath around 4 AM today when she woke up to use bathroom. Progressively worsening until EMS arrival and her sats were 92% with distress, placed on 6 L oxygen and saturation improved to 99 and her shortness of breath/dyspnea also improved. Patient is feeling much better on presentation. She denied any chest pain but has some tightness. No palpitations. She has mild nonproductive cough, was recently diagnosed with influenza almost a week ago but denies any fever or chills lately. Denies any known sick contact with COVID-19. Denies any history of CAD. Timing/Duration: hour(s) (3), sudden, worse Activities at Onset: activity Severity of Dyspnea-Max: severe Severity of Dyspnea-Current: mild Modifying Factors: Improves With: oxygen Associated Symptoms: cough, wheezing, ankle swelling, No chest pain/discomfort, No fever, No lightheadedness, No weakness, No chills, No hemoptysis, No dizziness, No heaviness, No heart racing, No lightheadedness, No muscle spasms feet, No muscle spasms hands, No painful breathing, No productive cough, No tightness, No tingling face, No tingling hands Allergies/Adverse Reactions: codeine [Codeine] Allergy (Mild, Verified 11/05/18 08:45) Rash Penicillins Allergy (Unknown, Verified 11/05/18 08:45) RASH/UPSET STOMACH Sulfa (Sulfonamide Antibiotics) [Sulfa(Sulfonamide Antibiotics)] Allergy (Unknown, Verified 11/05/18 08:45) Rash cephalexin [From Keflex] Allergy (Verified 11/05/18 08:45) ciprofloxacin [From Cipro] Allergy (Verified 11/05/18 08:45) metronidazole [From Flagyl] Adverse Reaction (Verified 06/02/19 08:45) Nausea and Vomiting Home Medications: Allopurinol 100 mg [Zyloprim 100 mg] 100 mg PO DAILY 04/09/17 [History] Carvedilol 12.5 mg [Coreg 12.5 mg] 25 mg PO BID 04/09/17 [History] Ergocalciferol (Vitamin D2) [Vitamin D2] 50,000 iu PO WEEKLY 04/09/17 [History] HydrALAzine HCL 25 MG TAB [Apresoline 25 MG TABLET] 25 mg PO TID 04/09/17 [History] Hydrocodone Bit/Acetaminophen [[place] 7.5-325 Tablet] 1 each PO Q8H PRN PRN 04/09/17 [History] Magnesium Oxide 400 mg [Mag-Ox 400] 400 mg PO DAILY 04/09/17 [History] Simvastatin 20Mg [Zocor 20Mg] 20 mg PO HS 04/09/17 [History] Spironolactone 25 mg [Aldactone 25 MG] 25 mg PO DAILY 04/09/17 [History] Losartan Potassium 25 mg PO DAILY 03/08/18 [History] predniSONE [Prednisone] 5 mg PO BID 03/08/18 [History] Amlodipine Besylate [Norvasc] 2.5 mg PO BID 08/27/20 [History] Brimonidine Tartrate [Alphagan P] 1 drop OP BID 08/27/20 [History] Famotidine 20 mg [Pepcid 20 MG] 20 mg PO BID 08/27/20 [History] Levocetirizine Dihydrochloride [Allergy Relief] 5 mg PO DAILY 08/27/20 [History] PANTOPRAZOLE 40 mg Tablet [Protonix 40MG Tablet] 40 mg PO QAM 08/27/20 [History] Hx Tetanus, Diphtheria Vaccination/Date Given: Yes Hx Influenza Vaccination/Date Given: Yes Hx Pneumococcal Vaccination/Date Given: Yes Immunizations Up to Date: Yes Travel Risk - International Travel Have you traveled outside of the country in past 3 weeks: No - Coronavirus Screening Are you exhibiting any of the following symptoms?: Yes Symptoms: Shortness of Breath - Review of Systems Constitutional: No Symptoms Eyes: No Symptoms Ears, Nose, & Throat: No Symptoms Respiratory: Dyspnea, Wheezing Cardiac: No Symptoms Abdominal/Gastrointestinal: No Symptoms Genitourinary Symptoms: No Symptoms Musculoskeletal: No Symptoms Skin: No Symptoms Neurological: No Symptoms Psychological: No Symptoms Endocrine: No Symptoms Hematologic/Lymphatic: No Symptoms Immunological/Allergic: No Symptoms - Past Medical History Pertinent Past Medical History: Yes Neurological History: No Pertinent History ENT History: No Pertinent History Cardiac History: Hypertension Respiratory History: Pulmonary Embolism Endocrine Medical History: Other Musculoskeletal History: Osteoarthritis, Osteoporosis GI Medical History: Diverticulitis, GERD, Hernia History: Other Psycho-Social History: No Pertinent History Female Reproductive Disorders: No Pertinent History Other Medical History: She has a kidney doctor due to being on HTN medication for a long time. - Past Surgical History Past Surgical History: Yes Neuro Surgical History: No Pertinent History Cardiac: No Pertinent History Respiratory: No Pertinent History Gastrointestinal: No Pertinent History Genitourinary: No Pertinent History Musculoskeletal: Joint Replacement Female Surgical History: Hysterectomy Other Surgical History: RIGHT HIP REPLACEMENT, BLADDER SLING - Social History Smoking Status: Former smoker Exposure to second hand smoke: No Alcohol Use: None Drug Use: none Patient Lives Alone: No Significant Family History: no pertinent family hx - Female History Hx Last Menstrual Period: post Hx Now: No - Nursing Vital Signs Nursing Vital Signs: Initial Vital Signs Respiratory Rate 18 08/27/20 07:39 O2 Sat by Pulse Oximetry 98 08/27/20 07:39 Pain Scale Pain Intensity 0 - Physical Exam General Appearance: no apparent distress, alert Eye Exam: PERRL/EOMI, eyes nml inspection Ears, Nose, Throat Exam: hearing grossly normal, normal ENT inspection, normal pharynx Neck Exam: normal inspection, non-tender, supple, full range of motion Respiratory Exam: diminished breath sounds, crackles/rales, wheezing Cardiovascular/Chest Exam: normal heart sounds, tachycardia Abdominal/Gastrointestinal Exam: soft, normal bowel sounds, No tenderness Extremity Exam: non-tender, normal range of motion Neurologic Exam: alert, oriented x 3, cooperative Skin Exam: normal color SpO2 Interpretation: O2 applied SpO2: 98 O2 Delivery: Nasal Cannula - Course EKG Interpreted by Me: RATE ([id number]), Sinus Tach, NORMAL AXIS, Left Bundle Branch Block, Non-specific ST Changes Ordered Tests: Active Orders 24 hr Category Date Time Status Car Lot Attendant STAT Care 08/27/20 07:47 Active EKG-ER Only STAT Care 08/27/20 07:46 Active IV Insertion STAT Care 08/27/20 07:46 Active Oxygen-ED Only Nasal Cannula 4 lpm Care 08/27/20 07:46 Active CHEST 1 VIEW (PORTABLE) Stat Exams 08/27/20 07:47 Completed CHEST WITH CONTRAST [CT] Stat Exams 08/27/20 09:02 Completed BLOOD CULTURE Stat Lab 08/27/20 08:08 Received CBC W DIFF Stat Lab 08/27/20 08:00 Completed CMP Stat Lab 08/27/20 08:00 Completed D-DIMER QUANTITATIVE Stat Lab 08/27/20 08:00 Completed INFLUENZA A+B LOCO Stat Lab 08/27/20 08:00 Completed Lactic Acid Stat Lab 08/27/20 08:09 Completed Lactic Acid Stat Lab 08/27/20 10:26 Completed MAGNESIUM Stat Lab 08/27/20 08:00 Completed NT PRO BNP Stat Lab 08/27/20 08:00 Completed TROPONIN Q3H Lab 08/27/20 08:00 Completed TROPONIN Q3H Lab 08/27/20 10:48 Completed TROPONIN Q3H Lab 08/27/20 14:00 Ordered TROPONIN Q3H Lab 08/27/20 17:00 Ordered TROPONIN Q3H Lab 08/27/20 20:00 Ordered UA W/RFX UR CULTURE Stat Lab 08/27/20 10:56 Ordered Peak Expiratory Flow Rate ONCE RT 08/27/20 08:05 Active Respiratory Therapy Assessment DAILY RT 08/27/20 08:05 Active Transfer Order Routine Transfer 08/27/20 Ordered Medication Summary Generic Name Dose Route Start Last Admin Trade Name Freq PRN Reason Stop Dose Admin Apixaban 5 mg 08/27/20 22:00 Eliquis 2.5 Mg Tablet PO 09/26/20 21:59 BID ARIAN Discontinued Medications Generic Name Dose Route Start Last Admin Trade Name Freq PRN Reason Stop Dose Admin Albuterol/Ipratropium 3 ml 08/27/20 07:46 08/27/20 08:04 Duoneb 0.5-3 Mg/3 Ml Neb IH 08/27/20 07:47 3 ml STAT ONE Administration Albuterol/Ipratropium Confirm 08/27/20 07:53 Duoneb 0.5-3 Mg/3 Ml Neb Administered 08/27/20 07:54 Dose 3 ml IH .STK-MED ONE Aspirin 324 mg 08/27/20 07:47 08/27/20 07:55 Baby Aspirin 81 Mg Chew PO 08/27/20 07:48 324 mg STAT ONE Administration Aspirin Confirm 08/27/20 07:53 Baby Aspirin 81 Mg Chew Administered 08/27/20 07:54 Dose 324 mg .ROUTE .STK-MED ONE Sodium Chloride Confirm 08/27/20 09:10 Sodium Chloride 0.9% 500 Ml Administered 08/27/20 09:11 Dose 500 mls @ ud IV .STK-MED ONE Methylprednisolone Sodium Succinate 125 mg 08/27/20 07:46 08/27/20 07:55 Solu-Medrol 125 Mg IV 08/27/20 07:47 125 mg STAT ONE Administration Methylprednisolone Sodium Succinate Confirm 08/27/20 07:53 Solu-Medrol 125 Mg Administered 08/27/20 07:54 Dose 125 mg .ROUTE .STK-MED ONE Lab/Rad Data: Laboratory Result Diagrams 08/27/20 08:00 08/27/20 08:00 Laboratory Results 08/27/20 08/27/20 08/27/20 Range/Units 10:48 10:38 10:26 WBC (4.0-10.5) K/mm3 RBC (4.1-5.4) M/mm3 Hgb (12.0-16.0) gm/dl Hct (35-47) % MCV (78-100) fl MCH (26-32) pg MCHC (32-36) g/dl RDW (11.5-14.0) % Plt Count (150-450) K/mm3 MPV (7.5-11.0) fl Gran % (36.0-66.0) % Eos # (Auto) (0-0.5) Absolute Lymphs (auto) (1.0-4.6) Absolute Monos (auto) (0.0-1.3) Lymphocytes % (24.0-44.0) % Monocytes % (0.0-12.0) % Eosinophils % (0.00-5.0) % Basophils % (0.0-0.4) % Absolute Granulocytes (1.4-6.9) Basophils # (0-0.4) D-Dimer (215-500) ng/mL Sodium (137-145) mmol/L Potassium (3.5-5.1) mmol/L Chloride (98-107) mmol/L Carbon Dioxide (22-30) mmol/L Anion Gap (5-15) MEQ/L BUN (7-17) mg/dL Creatinine (0.52-1.04) mg/dL Estimated GFR ML/MIN Glucose (74-106) mg/dL Lactic Acid 1.6 (0.4-2.0) Calcium (8.4-10.2) mg/dL Magnesium (1.6-2.3) mg/dL Total Bilirubin (0.2-1.3) mg/dL AST (14-36) U/L ALT (0-35) U/L Alkaline Phosphatase (38-126) U/L Troponin I 0.163 H* (0.000-0.034) ng/mL NT-Pro-B Natriuret Pep (0-1800) pg/mL Serum Total Protein (6.3-8.2) g/dL Albumin (3.5-5.0) g/dL Influenza Type A Ag NEGATIVE (NEGATIVE) Influenza Type B Ag NEGATIVE (NEGATIVE) RSV (PCR) NEGATIVE (Negative) SARS-CoV-2 (PCR) NEGATIVE (NEGATIVE) 08/27/20 08/27/20 08/27/20 Range/Units 08:09 08:00 08:00 WBC (4.0-10.5) K/mm3 RBC (4.1-5.4) M/mm3 Hgb (12.0-16.0) gm/dl Hct (35-47) % MCV (78-100) fl MCH (26-32) pg MCHC (32-36) g/dl RDW (11.5-14.0) % Plt Count (150-450) K/mm3 MPV (7.5-11.0) fl Gran % (36.0-66.0) % Eos # (Auto) (0-0.5) Absolute Lymphs (auto) (1.0-4.6) Absolute Monos (auto) (0.0-1.3) Lymphocytes % (24.0-44.0) % Monocytes % (0.0-12.0) % Eosinophils % (0.00-5.0) % Basophils % (0.0-0.4) % Absolute Granulocytes (1.4-6.9) Basophils # (0-0.4) D-Dimer 34915 H* (215-500) ng/mL Sodium (137-145) mmol/L Potassium (3.5-5.1) mmol/L Chloride (98-107) mmol/L Carbon Dioxide (22-30) mmol/L Anion Gap (5-15) MEQ/L BUN (7-17) mg/dL Creatinine (0.52-1.04) mg/dL Estimated GFR ML/MIN Glucose (74-106) mg/dL Lactic Acid 2.4 H (0.4-2.0) Calcium (8.4-10.2) mg/dL Magnesium (1.6-2.3) mg/dL Total Bilirubin (0.2-1.3) mg/dL AST (14-36) U/L ALT (0-35) U/L Alkaline Phosphatase (38-126) U/L Troponin I 0.120 H* (0.000-0.034) ng/mL NT-Pro-B Natriuret Pep (0-1800) pg/mL Serum Total Protein (6.3-8.2) g/dL Albumin (3.5-5.0) g/dL Influenza Type A Ag (NEGATIVE) Influenza Type B Ag (NEGATIVE) RSV (PCR) (Negative) SARS-CoV-2 (PCR) (NEGATIVE) 08/27/20 08/27/20 08/27/20 Range/Units 08:00 08:00 08:00 WBC 10.1 (4.0-10.5) K/mm3 RBC 3.76 L (4.1-5.4) M/mm3 Hgb 12.2 (12.0-16.0) gm/dl Hct 38.1 (35-47) % MCV 101.3 H (78-100) fl MCH 32.4 H (26-32) pg MCHC 32.0 (32-36) g/dl RDW 13.7 (11.5-14.0) % Plt Count 197 (150-450) K/mm3 MPV 9.4 (7.5-11.0) fl Gran % 74.0 H (36.0-66.0) % Eos # (Auto) 0.05 (0-0.5) Absolute Lymphs (auto) 1.78 (1.0-4.6) Absolute Monos (auto) 0.78 (0.0-1.3) Lymphocytes % 17.6 L (24.0-44.0) % Monocytes % 7.7 (0.0-12.0) % Eosinophils % 0.5 (0.00-5.0) % Basophils % 0.2 (0.0-0.4) % Absolute Granulocytes 7.48 H (1.4-6.9) Basophils # 0.02 (0-0.4) D-Dimer (215-500) ng/mL Sodium 135 L (137-145) mmol/L Potassium 4.9 (3.5-5.1) mmol/L Chloride 97 L (98-107) mmol/L Carbon Dioxide 22 (22-30) mmol/L Anion Gap 19.8 H (5-15) MEQ/L BUN 42 H (7-17) mg/dL Creatinine 1.17 H (0.52-1.04) mg/dL Estimated GFR 46.5 ML/MIN Glucose 162 H (74-106) mg/dL Lactic Acid (0.4-2.0) Calcium 9.9 (8.4-10.2) mg/dL Magnesium 2.0 (1.6-2.3) mg/dL Total Bilirubin 0.60 (0.2-1.3) mg/dL AST 33 (14-36) U/L ALT 29 (0-35) U/L Alkaline Phosphatase 51 (38-126) U/L Troponin I (0.000-0.034) ng/mL NT-Pro-B Natriuret Pep 146 (0-1800) pg/mL Serum Total Protein 6.6 (6.3-8.2) g/dL Albumin 4.2 (3.5-5.0) g/dL Influenza Type A Ag NEGATIVE (NEGATIVE) Influenza Type B Ag NEGATIVE (NEGATIVE) RSV (PCR) (Negative) SARS-CoV-2 (PCR) (NEGATIVE) - Progress Progress: improved, re-examined Air Movement: good Progress Note: 08/27/20 09:44 89 years old is evaluated for sudden worsening shortness of breath. She was on 6 L on presentation, not in any distress. She is given DuoNeb and Solu-Medrol and gradually decreased supplemental oxygen to 2 L now with sats around 95% and not in any distress. EKG showed sinus tach with no definite ST elevation suggesting myocardial infarction, has left bundle branch block. Chest x-ray negative for any acute cardiopulmonary findings. She has initial troponin elevated 0.12 and has received a full dose aspirin. Patient denies any chest pain on repeated evaluations. She has a normal white count, chemistry profile showed elevated BUN and anion gap, given a fluid bolus as well. I have obtained D-dimer and they are markedly higher, CTA is pending. Discussed with Dr. Moon with her primary care, recommended continue with aspirin, oxygen, neb treatment and admission. Plan discussed with patient who understand and agrees with it. 08/27/20 11:20 CTA chest showed bilateral PEs right greater than the left with no occlusion. No saddle embolus. Discussed with Dr. Villalta, recommending holding off on anticoagulation as patient does have history of PE in the past and placing on anticoagulation she had gastric bleed. If COVID-19 is negative patient will be started on Eliquis after discussion with Dr. Vargas 08/27/20 11:54 COVID 19 is negative and after discussion with pharmacist per recommendations is started on Eliquis. Blood Culture(s) Obtained: Yes Discussed with .: Dylan Will see patient in: hospital (observation) Counseled pt/family regarding: lab results, diagnosis, rad results - Departure Departure Disposition: Observation Clinical Impression: Unstable angina Dyspnea Qualifiers: Dyspnea type: other forms of dyspnea Qualified Code(s): R06.09 - Other forms of dyspnea Pulmonary embolism Qualifiers: Pulmonary embolism type: unspecified Chronicity: acute Acute cor pulmonale presence: unspecified Qualified Code(s): I26.99 - Other pulmonary embolism without acute cor pulmonale Condition: Fair Critical Care Time: Yes Critical Care Time(excluding separately billable procedures): Critical 30-74 mins Referrals: CONRADO VILLALTA MD [Primary Care Provider] -
[2020-08-27] MEDS ORDERED: BABY ASPIRIN 81 MG CHEW ONE (07:53)
[2020-08-27] MEDS ORDERED: solu-MEDROL 125 MG ONE (07:53)
[2020-08-27 08:22] LABS: Absolute Neutrophil Ct (ANC) 7.48 (1.4-6.9); BASOPHIL % 0.2 % (0.0-0.4); Basophil (Absolute #) 0.02 (0-0.4); Eosinophil % 0.5 % (0.00-5.0); Eosinophil (Absolute #) 0.05 (0-0.5); Hematocrit 38.1 % (35-47); Hemoglobin 12.2 gm/dl (12.0-16.0); Lymphocyte (Absolute #) 1.78 (1.0-4.6); Lymphocytes % 17.6 % (24.0-44.0); Mean Cell Volume 101.3 fl (78-100); Mean Corpuscular Hemoglobin 32.4 pg (26-32); Mean Platelet Volume 9.4 fl (7.5-11.0); Monocyte (Absolute #) 0.78 (0.0-1.3); Monocytes % 7.7 % (0.0-12.0); Platelet Count 197 K/mm3 (150-450); Red Blood Count 3.76 M/mm3 (4.1-5.4); Red Cell Distribution Width 13.7 % (11.5-14.0); White Blood Count 10.1 K/mm3 (4.0-10.5)
[2020-08-27 08:38] LABS: INFLUENZA A NEGATIVE (NEGATIVE); INFLUENZA B NEGATIVE (NEGATIVE)
[2020-08-27 08:40] LABS: ALBUMIN 4.2 g/dL (3.5-5.0); ANION GAP 19.8 MEQ/L (5-15); BILIRUBIN,TOTAL 0.6 mg/dL (0.2-1.3); Calcium 9.9 mg/dL (8.4-10.2); Creatinine 1 1.17 mg/dL (0.52-1.04); EST GLOMERULAR FILTRATION RATE 46.5 ML/MIN; Potassium 4.9 mmol/L (3.5-5.1); Total Protein 6.6 g/dL (6.3-8.2)
[2020-08-27] MEDS ORDERED: Sodium Chloride 0.9% 500 ML 500 ML IV ONE (09:10)
--- NOTE | 2020-08-27 09:17 | XRAY ---
Indication: Short of breath. Comparison: June 10, 2018. Portable chest remains clear. Heart borderline enlarged again with tortuous aorta. Bony thorax intact again with osteopenia and degenerative changes. Impression: Continued nonacute chest with chronic features.
--- NOTE | 2020-08-27 10:48 | XRAY ---
Indication: Short of breath. Elevated d-dimer. Multiple contiguous images obtained through the chest using 80 cc Isovue 370 contrast and PE protocol. Comparison: January 10, 2019. There is good opacification of the pulmonary arteries to include the lobar and segmental branches. New extensive nonoccluding pulmonary emboli in the distal right main pulmonary artery extending into all lobar branches. Additional lesser tiny nonoccluding pulmonary emboli in the segmental branches of the left upper and left lower lobes. Heart is remains enlarged. Aorta demonstrates minimal calcifications without aneurysm/dissection. No pathologic mediastinal/hilar lymphadenopathy. Lungs demonstrates minimal bilateral bilateral subsegmental atelectasis/scarring. No suspicious pulmonary mass, infiltrate, or effusion. Bony thorax intact again with mild degenerative changes throughout the spine, both shoulders, and old right rib fractures. Limited upper abdomen again demonstrates fatty liver, bilateral renal cysts, and hepatic/splenic calcified granulomas. Impression: 1. New nonoccluding diffuse bilateral pulmonary emboli, right greater than left. No distal infarct. 2. Again incidental cardiomegaly, bilateral renal cysts, chronic bony findings, and old granulomatous disease.
[2020-08-27 11:24] LABS: INFLUENZA A NEGATIVE (NEGATIVE); INFLUENZA B NEGATIVE (NEGATIVE); RESPIRATORY SYNCTIAL VIRUS NEGATIVE (Negative)
[2020-08-27 11:52] LABS: Appearance CLEAR (CLEAR); Bilirubin NEGATIVE (NEGATIVE); Blood SMALL Ery/ul (0-5); Glucose NEGATIVE (NEGATIVE); Ketones NEGATIVE (NEGATIVE); Leukocyte Esterase TRACE (NEGATIVE); Mucus SLIGHT /HPF (NEGATIVE); Nitrite POSITIVE (NEGATIVE); Protein,Urine Dip NEGATIVE (Negative); Specific Gravity 1.021 (1.005-1.025); Urobilinogen NEGATIVE mg/dL (0-1)
[2020-08-27 11:55] LABS: Bacteria FEW /HPF (NEGATIVE)
[2020-08-27] MEDS ORDERED: Macrobid 100MG Capsule PO ONE (12:11)
[2020-08-27] MEDS ORDERED: Macrobid 100MG Capsule ONE (12:15)
[2020-08-27] MEDS: ELIQUIS 2.5 MG TABLET PO SCH ×3 (12:23→21:16)
[2020-08-27] MEDS ORDERED: TYLENOL 325 MG PO PRN (13:18)
[2020-08-27] MEDS ORDERED: Senokot-S Tablet PO PRN (13:18)
[2020-08-27] MEDS ORDERED: Pepcid 20 MG VIAL IV SCH (13:18)
[2020-08-27] MEDS ORDERED: DUONEB 0.5-3 MG/3 ml Neb IH SCH (13:18)
[2020-08-27] MEDS ORDERED: MILK OF MAGNESIA 30 ML PO PRN (13:18)
[2020-08-27] MEDS ORDERED: Zofran 4 MG/2 ML VIAL IV PRN (13:18)
[2020-08-27] MEDS ORDERED: MAALOX ES 30 ML UNIT DOSE PO PRN (13:18)
[2020-08-27] MEDS ORDERED: PHARMACY DOSING REQUEST MC ONE (14:22)
[2020-08-27] MEDS ORDERED: NON-FORMULARY ITEM (Acetaminophen [Tylenol] 650 MG) PO PRN (15:12)
[2020-08-27] MEDS: Ecotrin 325 MG PO SCH (16:02)
[2020-08-27] MEDS: Apresoline 25 MG TABLET PO SCH ×2 (16:08→21:16)
[2020-08-27] MEDS: NORCO 7.5/325 MG TAB PO PRN (16:08)
[2020-08-27] MEDS: Alphagan P 0.15% OP SCH (21:15)
[2020-08-27] MEDS: COREG 12.5 MG PO SCH (21:16)
[2020-08-27] MEDS: DELTASONE 5 MG PO SCH (21:16)
[2020-08-27] MEDS: Pepcid 20 MG PO SCH (21:16)
[2020-08-27] MEDS: Senokot-S Tablet PO SCH (21:16)
[2020-08-27] MEDS: ZOCOR 20MG PO SCH (21:16)
[2020-08-27] MEDS: NORVASC 5 MG PO SCH (21:21)
[2020-08-27] MEDS: TYLENOL 325 MG PO PRN (21:27)
[2020-08-27] MEDS ORDERED: NON-FORMULARY ITEM (Amlodipine Besylate [Norvasc] 2.5 MG) PO SCH (22:00)
[2020-08-28] MEDS: NORCO 7.5/325 MG TAB PO PRN ×3 (00:07→22:27)
[2020-08-28] MEDS ORDERED: Sodium Chloride 0.9% 500 ML 500 ML IV ONE (08:10)
--- NOTE | 2020-08-28 08:27 | PCM.HP ---
History of Present Illness - Chief Complaint Chief Complaint: shortness of breath for 1 day History of Present Illness: is a 89 year old female.with history of hypertension, hyperlipidemia, pulmonary embolism not on any anticoagulant currently presented in the ER with sudden onset shortness of breath around 4 AM today when she woke up to use bathroom. Progressively worsening until EMS arrival and her sats were 92% with distress, placed on 6 L oxygen and saturation improved to 99 and her shortness of breath/dyspnea also improved. Patient is feeling much better on presentation. She denied any chest pain but has some tightness. No palpitations. She has mild nonproductive cough, was recently diagnosed with influenza almost a week ago but denies any fever or chills lately. Denies any known sick contact with COVID-19. Denies any history of CAD. Timing/Duration: hour(s) (3), sudden, worse Activities at Onset: activity Severity of Dyspnea-Max: severe Severity of Dyspnea-Current: mild Modifying Factors: Improves With: oxygen Associated Symptoms: cough, wheezing, ankle swelling, No chest pain/discomfort, No fever, No lightheadedness, No weakness, No chills, No hemoptysis, No dizziness, No heaviness, No heart racing, No lightheadedness, No muscle spasms feet, No muscle spasms hands, No painful breathing, No productive cough, No tightness, No tingling face, No tingling hands Patient denies any past COVID symptoms - Review of Systems Constitutional: No Fever, No Chills Eyes: No Symptoms Ears, Nose, & Throat: No Symptoms Respiratory: Orthopnea, Short Of Breath, Wheezing, No Cough Cardiac: No Chest Pain, No Edema, No Syncope Abdominal/Gastrointestinal: No Abdominal Pain, No Nausea, No Vomiting, No Diarrhea Genitourinary Symptoms: No Dysuria Musculoskeletal: No Back Pain, No Neck Pain Skin: No Rash Neurological: No Dizziness, No Focal Weakness, No Sensory Changes Psychological: No Symptoms Endocrine: No Symptoms Hematologic/Lymphatic: No Symptoms Immunological/Allergic: No Symptoms Medications & Allergies Home Medications: Home Medication List Allopurinol 100 mg [Zyloprim 100 mg] 100 mg PO DAILY 04/09/17 [History Confirmed 08/27/20] Carvedilol 12.5 mg [Coreg 12.5 mg] 25 mg PO BID 04/09/17 [History Confirmed 08/27/20] Ergocalciferol (Vitamin D2) [Vitamin D2] 50,000 iu PO WEEKLY 04/09/17 [History Confirmed 08/27/20] HydrALAzine HCL 25 MG TAB [Apresoline 25 MG TABLET] 25 mg PO TID 04/09/17 [History Confirmed 08/27/20] Hydrocodone Bit/Acetaminophen [[place] 7.5-325 Tablet] 1 each PO Q8H PRN PRN 04/09/17 [History Confirmed 08/27/20] Magnesium Oxide 400 mg [Mag-Ox 400] 400 mg PO DAILY 04/09/17 [History Confirmed 08/27/20] Simvastatin 20Mg [Zocor 20Mg] 20 mg PO HS 04/09/17 [History Confirmed 08/27/20] Spironolactone 25 mg [Aldactone 25 MG] 25 mg PO DAILY 04/09/17 [History Confirmed 08/27/20] Losartan Potassium 25 mg PO DAILY 03/08/18 [History Confirmed 08/27/20] predniSONE [Prednisone] 5 mg PO BID 03/08/18 [History Confirmed 08/27/20] Acetaminophen [Tylenol] 650 mg PO Q4HPRN PRN 08/27/20 [History Confirmed 08/27/20] Amlodipine Besylate [Norvasc] 2.5 mg PO BID 08/27/20 [History Confirmed 08/27/20] Brimonidine Tartrate [Alphagan P] 1 drop OP BID 08/27/20 [History Confirmed 08/27/20] Famotidine 20 mg [Pepcid 20 MG] 20 mg PO BID 08/27/20 [History Confirmed 08/27/20] Levocetirizine Dihydrochloride [Allergy Relief] 5 mg PO DAILY 08/27/20 [History Confirmed 08/27/20] PANTOPRAZOLE 40 mg Tablet [Protonix 40MG Tablet] 40 mg PO QAM 08/27/20 [History Confirmed 08/27/20] Polyethylene Glycol 3350 17 gm [Miralax Powder 17GM PACKET] 17 gm PO DAILY 08/27/20 [History Confirmed 08/27/20] Sennosides/Docusate Sodium [Senna-S 8.6-50 mg Tablet] 1 each PO HS 08/27/20 [History Confirmed 08/27/20] Allergies/Adverse Reactions: Allergies Allergy/AdvReac Type Severity Reaction Status Date / Time codeine [Codeine] Allergy Mild Rash Verified 11/05/18 08:45 Penicillins Allergy Unknown RASH/UPSET Verified 11/05/18 08:45 STOMACH Sulfa (Sulfonamide Allergy Unknown Rash Verified 11/05/18 08:45 Antibiotics) [Sulfa(Sulfonamide Antibiotics)] cephalexin [From Keflex] Allergy Verified 11/05/18 08:45 ciprofloxacin [From Cipro] Allergy Verified 11/05/18 08:45 metronidazole [From Flagyl] AdvReac Nausea and Verified 11/05/18 08:45 Vomiting - Past Medical History Past Medical History: Yes Neurological History: No Pertinent History ENT History: No Pertinent History Cardiac History: Hypertension Respiratory History: Pulmonary Embolism Endocrine Medical History: Other Musculoskelatal History: Osteoarthritis, Osteoporosis GI Medical History: Diverticulitis, GERD, Hernia History: Other Pyscho-Social History: No Pertinent History Reproductive Disorders: No Pertinent History Comment: She has a kidney doctor due to being on HTN medication for a long time. - Female History Hx Last Menstrual Period: post Are you now?: No - Past Surgical History Past Surgical History: Yes Neuro Surgical History: No Pertinent History Cardiac History: No Pertinent History Respiratory Surgery: No Pertinent History GI Surgical History: No Pertinent History Genitourinary Surgical Hx: No Pertinent History Musculskeletal Surgical Hx: Joint Replacement Female Surgical History: Hysterectomy Other Surgical History: RIGHT HIP REPLACEMENT, BLADDER SLING - Social History Smoking Status: Former smoker Exposure to second hand smoke: No Alcohol: None Drug Use: none Significant Family History: no pertinent family hx - Physical Exam Vital Signs: Vital Signs - 24 hr Temp Pulse Resp BP BP Pulse Ox 08/28/20 07:25 97.8 F 82 20 153/91 98 08/28/20 06:39 94 L 08/28/20 04:00 97.4 F 74 18 101/56 96 08/28/20 00:00 97.9 F 85 18 111/68 95 08/27/20 20:21 93 L 08/27/20 20:00 97.9 F 88 18 119/76 95 08/27/20 16:00 98.0 F 75 18 107/58 95 08/27/20 14:34 97.6 F 96 H 18 113/65 96 08/27/20 13:48 103 H 20 97 08/27/20 12:33 73 16 95 08/27/20 11:56 98 08/27/20 11:20 90 20 109/72 92 L 08/27/20 10:36 93 H 18 107/70 93 L 08/27/20 09:07 98 H 16 110/76 95 Oxygen-Last 24 hours Oxygen Flowrate (L/min)-RT 3 Oxygen Flowrate (L/min)-RT 3 Oxygen Flowrate (L/min)-RT 3 Oxygen Flowrate (L/min)-RT 3 Oxygen Flowrate (L/min)-RT 3 General Appearance: no apparent distress, alert Neurologic Exam: alert, oriented x 3, cooperative, normal mood/affect, nml cerebellar function, nml station & gait, sensation nml, No motor deficits Eye Exam: PERRL/EOMI, eyes nml inspection Ears, Nose, Throat Exam: normal ENT inspection, TMs normal, pharynx normal, moist mucous membranes Neck Exam: normal inspection, non-tender, supple, full range of motion Respiratory Exam: diminished breath sounds, crackles/rales, rhonchi, wheezing, No respiratory distress Cardiovascular Exam: regular rate/rhythm, normal heart sounds, normal peripheral pulses Gastrointestinal/Abdomen Exam: soft, normal bowel sounds, No tenderness, No mass Back Exam: normal inspection, normal range of motion, No CVA tenderness, No vertebral tenderness Extremity Exam: normal inspection, normal range of motion, pelvis stable Skin Exam: normal color, warm, dry, No rash Lymphatic Exam: No adenopathy Results - Labs Lab/Micro Results: Lab Results-Last 24 Hours 08/27/20 08/27/20 08/27/20 Range/Units 08:00 08:00 08:00 WBC 10.1 (4.0-10.5) K/mm3 RBC 3.76 L (4.1-5.4) M/mm3 Hgb 12.2 (12.0-16.0) gm/dl Hct 38.1 (35-47) % MCV 101.3 H (78-100) fl MCH 32.4 H (26-32) pg MCHC 32.0 (32-36) g/dl RDW 13.7 (11.5-14.0) % Plt Count 197 (150-450) K/mm3 MPV 9.4 (7.5-11.0) fl Gran % 74.0 H (36.0-66.0) % Eos # (Auto) 0.05 (0-0.5) Absolute Lymphs (auto) 1.78 (1.0-4.6) Absolute Monos (auto) 0.78 (0.0-1.3) Lymphocytes % 17.6 L (24.0-44.0) % Monocytes % 7.7 (0.0-12.0) % Eosinophils % 0.5 (0.00-5.0) % Basophils % 0.2 (0.0-0.4) % Absolute Granulocytes 7.48 H (1.4-6.9) Basophils # 0.02 (0-0.4) D-Dimer (215-500) ng/mL Sodium 135 L (137-145) mmol/L Potassium 4.9 (3.5-5.1) mmol/L Chloride 97 L (98-107) mmol/L Carbon Dioxide 22 (22-30) mmol/L Anion Gap 19.8 H (5-15) MEQ/L BUN 42 H (7-17) mg/dL Creatinine 1.17 H (0.52-1.04) mg/dL Estimated GFR 46.5 ML/MIN Glucose 162 H (74-106) mg/dL Lactic Acid (0.4-2.0) Calcium 9.9 (8.4-10.2) mg/dL Magnesium 2.0 (1.6-2.3) mg/dL Total Bilirubin 0.60 (0.2-1.3) mg/dL AST 33 (14-36) U/L ALT 29 (0-35) U/L Alkaline Phosphatase 51 (38-126) U/L Troponin I (0.000-0.034) ng/mL NT-Pro-B Natriuret Pep 146 (0-1800) pg/mL Serum Total Protein 6.6 (6.3-8.2) g/dL Albumin 4.2 (3.5-5.0) g/dL Triglycerides (30-150) mg/dL Cholesterol (50-200) mg/dL LDL Cholesterol (30-100) mg/dL HDL Cholesterol (40-60) mg/dL Heart Disease Risk Ratio Urine Color (YELLOW) Urine Appearance (CLEAR) Urine pH (5-6) Ur Specific [place] (1.005-1.025) Urine Protein (Negative) Urine Ketones (NEGATIVE) Urine Blood (0-5) Josemanuel/ul Urine Nitrite (NEGATIVE) Urine Bilirubin (NEGATIVE) Urine Urobilinogen (0-1) mg/dL Ur Leukocyte Esterase (NEGATIVE) Urine WBC (Auto) (0-5) /HPF Urine RBC (Auto) (0-2) /HPF U Epithel Cells (Auto) (FEW) /HPF Urine Bacteria (Auto) (NEGATIVE) /HPF Urine Mucus (Auto) (NEGATIVE) /HPF Urine Culture Reflexed (NO) Urine Glucose (NEGATIVE) mg/dL Influenza Type A Ag NEGATIVE (NEGATIVE) Influenza Type B Ag NEGATIVE (NEGATIVE) RSV (PCR) (Negative) SARS-CoV-2 (PCR) (NEGATIVE) 08/27/20 08/27/20 08/27/20 Range/Units 08:00 08:00 08:09 WBC (4.0-10.5) K/mm3 RBC (4.1-5.4) M/mm3 Hgb (12.0-16.0) gm/dl Hct (35-47) % MCV (78-100) fl MCH (26-32) pg MCHC (32-36) g/dl RDW (11.5-14.0) % Plt Count (150-450) K/mm3 MPV (7.5-11.0) fl Gran % (36.0-66.0) % Eos # (Auto) (0-0.5) Absolute Lymphs (auto) (1.0-4.6) Absolute Monos (auto) (0.0-1.3) Lymphocytes % (24.0-44.0) % Monocytes % (0.0-12.0) % Eosinophils % (0.00-5.0) % Basophils % (0.0-0.4) % Absolute Granulocytes (1.4-6.9) Basophils # (0-0.4) D-Dimer 53831 H* (215-500) ng/mL Sodium (137-145) mmol/L Potassium (3.5-5.1) mmol/L Chloride (98-107) mmol/L Carbon Dioxide (22-30) mmol/L Anion Gap (5-15) MEQ/L BUN (7-17) mg/dL Creatinine (0.52-1.04) mg/dL Estimated GFR ML/MIN Glucose (74-106) mg/dL Lactic Acid 2.4 H (0.4-2.0) Calcium (8.4-10.2) mg/dL Magnesium (1.6-2.3) mg/dL Total Bilirubin (0.2-1.3) mg/dL AST (14-36) U/L ALT (0-35) U/L Alkaline Phosphatase (38-126) U/L Troponin I 0.120 H* (0.000-0.034) ng/mL NT-Pro-B Natriuret Pep (0-1800) pg/mL Serum Total Protein (6.3-8.2) g/dL Albumin (3.5-5.0) g/dL Triglycerides (30-150) mg/dL Cholesterol (50-200) mg/dL LDL Cholesterol (30-100) mg/dL HDL Cholesterol (40-60) mg/dL Heart Disease Risk Ratio Urine Color (YELLOW) Urine Appearance (CLEAR) Urine pH (5-6) Ur Specific [place] (1.005-1.025) Urine Protein (Negative) Urine Ketones (NEGATIVE) Urine Blood (0-5) Josemanuel/ul Urine Nitrite (NEGATIVE) Urine Bilirubin (NEGATIVE) Urine Urobilinogen (0-1) mg/dL Ur Leukocyte Esterase (NEGATIVE) Urine WBC (Auto) (0-5) /HPF Urine RBC (Auto) (0-2) /HPF U Epithel Cells (Auto) (FEW) /HPF Urine Bacteria (Auto) (NEGATIVE) /HPF Urine Mucus (Auto) (NEGATIVE) /HPF Urine Culture Reflexed (NO) Urine Glucose (NEGATIVE) mg/dL Influenza Type A Ag (NEGATIVE) Influenza Type B Ag (NEGATIVE) RSV (PCR) (Negative) SARS-CoV-2 (PCR) (NEGATIVE) 08/27/20 08/27/20 08/27/20 Range/Units 10:26 10:38 10:48 WBC (4.0-10.5) K/mm3 RBC (4.1-5.4) M/mm3 Hgb (12.0-16.0) gm/dl Hct (35-47) % MCV (78-100) fl MCH (26-32) pg MCHC (32-36) g/dl RDW (11.5-14.0) % Plt Count (150-450) K/mm3 MPV (7.5-11.0) fl Gran % (36.0-66.0) % Eos # (Auto) (0-0.5) Absolute Lymphs (auto) (1.0-4.6) Absolute Monos (auto) (0.0-1.3) Lymphocytes % (24.0-44.0) % Monocytes % (0.0-12.0) % Eosinophils % (0.00-5.0) % Basophils % (0.0-0.4) % Absolute Granulocytes (1.4-6.9) Basophils # (0-0.4) D-Dimer (215-500) ng/mL Sodium (137-145) mmol/L Potassium (3.5-5.1) mmol/L Chloride (98-107) mmol/L Carbon Dioxide (22-30) mmol/L Anion Gap (5-15) MEQ/L BUN (7-17) mg/dL Creatinine (0.52-1.04) mg/dL Estimated GFR ML/MIN Glucose (74-106) mg/dL Lactic Acid 1.6 (0.4-2.0) Calcium (8.4-10.2) mg/dL Magnesium (1.6-2.3) mg/dL Total Bilirubin (0.2-1.3) mg/dL AST (14-36) U/L ALT (0-35) U/L Alkaline Phosphatase (38-126) U/L Troponin I 0.163 H* (0.000-0.034) ng/mL NT-Pro-B Natriuret Pep (0-1800) pg/mL Serum Total Protein (6.3-8.2) g/dL Albumin (3.5-5.0) g/dL Triglycerides (30-150) mg/dL Cholesterol (50-200) mg/dL LDL Cholesterol (30-100) mg/dL HDL Cholesterol (40-60) mg/dL Heart Disease Risk Ratio Urine Color (YELLOW) Urine Appearance (CLEAR) Urine pH (5-6) Ur Specific [place] (1.005-1.025) Urine Protein (Negative) Urine Ketones (NEGATIVE) Urine Blood (0-5) Josemanuel/ul Urine Nitrite (NEGATIVE) Urine Bilirubin (NEGATIVE) Urine Urobilinogen (0-1) mg/dL Ur Leukocyte Esterase (NEGATIVE) Urine WBC (Auto) (0-5) /HPF Urine RBC (Auto) (0-2) /HPF U Epithel Cells (Auto) (FEW) /HPF Urine Bacteria (Auto) (NEGATIVE) /HPF Urine Mucus (Auto) (NEGATIVE) /HPF Urine Culture Reflexed (NO) Urine Glucose (NEGATIVE) mg/dL Influenza Type A Ag NEGATIVE (NEGATIVE) Influenza Type B Ag NEGATIVE (NEGATIVE) RSV (PCR) NEGATIVE (Negative) SARS-CoV-2 (PCR) NEGATIVE (NEGATIVE) 08/27/20 08/27/20 08/27/20 Range/Units 10:56 14:00 17:05 WBC (4.0-10.5) K/mm3 RBC (4.1-5.4) M/mm3 Hgb (12.0-16.0) gm/dl Hct (35-47) % MCV (78-100) fl MCH (26-32) pg MCHC (32-36) g/dl RDW (11.5-14.0) % Plt Count (150-450) K/mm3 MPV (7.5-11.0) fl Gran % (36.0-66.0) % Eos # (Auto) (0-0.5) Absolute Lymphs (auto) (1.0-4.6) Absolute Monos (auto) (0.0-1.3) Lymphocytes % (24.0-44.0) % Monocytes % (0.0-12.0) % Eosinophils % (0.00-5.0) % Basophils % (0.0-0.4) % Absolute Granulocytes (1.4-6.9) Basophils # (0-0.4) D-Dimer (215-500) ng/mL Sodium (137-145) mmol/L Potassium (3.5-5.1) mmol/L Chloride (98-107) mmol/L Carbon Dioxide (22-30) mmol/L Anion Gap (5-15) MEQ/L BUN (7-17) mg/dL Creatinine (0.52-1.04) mg/dL Estimated GFR ML/MIN Glucose (74-106) mg/dL Lactic Acid (0.4-2.0) Calcium (8.4-10.2) mg/dL Magnesium (1.6-2.3) mg/dL Total Bilirubin (0.2-1.3) mg/dL AST (14-36) U/L ALT (0-35) U/L Alkaline Phosphatase (38-126) U/L Troponin I 0.166 H* 0.152 H* (0.000-0.034) ng/mL NT-Pro-B Natriuret Pep (0-1800) pg/mL Serum Total Protein (6.3-8.2) g/dL Albumin (3.5-5.0) g/dL Triglycerides (30-150) mg/dL Cholesterol (50-200) mg/dL LDL Cholesterol (30-100) mg/dL HDL Cholesterol (40-60) mg/dL Heart Disease Risk Ratio Urine Color YELLOW (YELLOW) Urine Appearance CLEAR (CLEAR) Urine pH 5.0 (5-6) Ur Specific [place] 1.021 (1.005-1.025) Urine Protein NEGATIVE (Negative) Urine Ketones NEGATIVE (NEGATIVE) Urine Blood SMALL (0-5) Josemanuel/ul Urine Nitrite POSITIVE (NEGATIVE) Urine Bilirubin NEGATIVE (NEGATIVE) Urine Urobilinogen NEGATIVE (0-1) mg/dL Ur Leukocyte Esterase TRACE (NEGATIVE) Urine WBC (Auto) 6-10 (0-5) /HPF Urine RBC (Auto) NONE (0-2) /HPF U Epithel Cells (Auto) NONE (FEW) /HPF Urine Bacteria (Auto) FEW (NEGATIVE) /HPF Urine Mucus (Auto) SLIGHT (NEGATIVE) /HPF Urine Culture Reflexed YES (NO) Urine Glucose NEGATIVE (NEGATIVE) mg/dL Influenza Type A Ag (NEGATIVE) Influenza Type B Ag (NEGATIVE) RSV (PCR) (Negative) SARS-CoV-2 (PCR) (NEGATIVE) 08/27/20 08/28/20 Range/Units 20:12 04:30 WBC (4.0-10.5) K/mm3 RBC (4.1-5.4) M/mm3 Hgb (12.0-16.0) gm/dl Hct (35-47) % MCV (78-100) fl MCH (26-32) pg MCHC (32-36) g/dl RDW (11.5-14.0) % Plt Count (150-450) K/mm3 MPV (7.5-11.0) fl Gran % (36.0-66.0) % Eos # (Auto) (0-0.5) Absolute Lymphs (auto) (1.0-4.6) Absolute Monos (auto) (0.0-1.3) Lymphocytes % (24.0-44.0) % Monocytes % (0.0-12.0) % Eosinophils % (0.00-5.0) % Basophils % (0.0-0.4) % Absolute Granulocytes (1.4-6.9) Basophils # (0-0.4) D-Dimer (215-500) ng/mL Sodium (137-145) mmol/L Potassium (3.5-5.1) mmol/L Chloride (98-107) mmol/L Carbon Dioxide (22-30) mmol/L Anion Gap (5-15) MEQ/L BUN (7-17) mg/dL Creatinine (0.52-1.04) mg/dL Estimated GFR ML/MIN Glucose (74-106) mg/dL Lactic Acid (0.4-2.0) Calcium (8.4-10.2) mg/dL Magnesium (1.6-2.3) mg/dL Total Bilirubin (0.2-1.3) mg/dL AST (14-36) U/L ALT (0-35) U/L Alkaline Phosphatase (38-126) U/L Troponin I 0.150 H* (0.000-0.034) ng/mL NT-Pro-B Natriuret Pep (0-1800) pg/mL Serum Total Protein (6.3-8.2) g/dL Albumin (3.5-5.0) g/dL Triglycerides 94 (30-150) mg/dL Cholesterol 129 (50-200) mg/dL LDL Cholesterol 32 (30-100) mg/dL HDL Cholesterol 66 H (40-60) mg/dL Heart Disease Risk Ratio 2.0 Urine Color (YELLOW) Urine Appearance (CLEAR) Urine pH (5-6) Ur Specific [place] (1.005-1.025) Urine Protein (Negative) Urine Ketones (NEGATIVE) Urine Blood (0-5) Josemanuel/ul Urine Nitrite (NEGATIVE) Urine Bilirubin (NEGATIVE) Urine Urobilinogen (0-1) mg/dL Ur Leukocyte Esterase (NEGATIVE) Urine WBC (Auto) (0-5) /HPF Urine RBC (Auto) (0-2) /HPF U Epithel Cells (Auto) (FEW) /HPF Urine Bacteria (Auto) (NEGATIVE) /HPF Urine Mucus (Auto) (NEGATIVE) /HPF Urine Culture Reflexed (NO) Urine Glucose (NEGATIVE) mg/dL Influenza Type A Ag (NEGATIVE) Influenza Type B Ag (NEGATIVE) RSV (PCR) (Negative) SARS-CoV-2 (PCR) (NEGATIVE) - Radiology Impressions Radiology Exams & Impressions: Radiology Procedures Category Date Time Status CHEST 1 VIEW (PORTABLE) Stat Exams 08/27/20 07:47 Completed CHEST WITH CONTRAST [CT] Stat Exams 08/27/20 09:[address]/CHEST WITH CONTRAST Indication: Short of breath. Elevated d-dimer. Multiple contiguous images obtained through the chest using 80 cc Isovue 370 contrast and PE protocol. Comparison: January 10, 2019. There is good opacification of the pulmonary arteries to include the lobar and segmental branches. New extensive nonoccluding pulmonary emboli in the distal right main pulmonary artery extending into all lobar branches. Additional lesser tiny nonoccluding pulmonary emboli in the segmental branches of the left upper and left lower lobes. Heart is remains enlarged. Aorta demonstrates minimal calcifications without aneurysm/dissection. No pathologic mediastinal/hilar lymphadenopathy. Lungs demonstrates minimal bilateral bilateral subsegmental atelectasis/scarring. No suspicious pulmonary mass, infiltrate, or effusion. Bony thorax intact again with mild degenerative changes throughout the spine, both shoulders, and old right rib fractures. Limited upper abdomen again demonstrates fatty liver, bilateral renal cysts, and hepatic/splenic calcified granulomas. Impression: 1. New nonoccluding diffuse bilateral pulmonary emboli, right greater than left. No distal infarct. 2. Again incidental cardiomegaly, bilateral renal cysts, chronic bony findings, and old granulomatous disease. - Other Procedures and Tests Respiratory Therapy 08/27/20 14:17 Oxygen Nasal Cannula 3 lpm 08/29/20 05:00 EKG ROUTINE 08/30/20 05:00 EKG ROUTINE Assessment/Plan (1) Pulmonary embolism Current Visit: Yes Status: Acute Qualifiers: Pulmonary embolism type: unspecified Chronicity: acute Acute cor pulmonale presence: unspecified Qualified Code(s): I26.99 - Other pulmonary embolism without acute cor pulmonale Assessment & Plan: Chief Complaint Diagnosis Dyspnea, PE Allergies Allergy/AdvReac Type Severity Reaction Status Date / Time codeine [Codeine] Allergy Mild Rash Verified 11/05/18 08:45 Penicillins Allergy Unknown RASH/UPSET Verified 11/05/18 08:45 STOMACH Sulfa (Sulfonamide Allergy Unknown Rash Verified 11/05/18 08:45 Antibiotics) [Sulfa(Sulfonamide Antibiotics)] cephalexin [From Keflex] Allergy Verified 11/05/18 08:45 ciprofloxacin [From Cipro] Allergy Verified 11/05/18 08:45 metronidazole [From Flagyl] AdvReac Nausea and Verified 11/05/18 08:45 Vomiting Vital Signs (Last 24 hours) Temp Pulse Resp BP BP Pulse Ox 08/28/20 07:25 97.8 F 82 20 153/91 98 08/28/20 06:39 94 L 08/28/20 04:00 97.4 F 74 18 101/56 96 08/28/20 00:00 97.9 F 85 18 111/68 95 08/27/20 20:21 93 L 08/27/20 20:00 97.9 F 88 18 119/76 95 08/27/20 16:00 98.0 F 75 18 107/58 95 08/27/20 14:34 97.6 F 96 H 18 113/65 96 08/27/20 13:48 103 H 20 97 08/27/20 12:33 73 16 95 08/27/20 11:56 98 08/27/20 11:20 90 20 109/72 92 L 08/27/20 10:36 93 H 18 107/70 93 L 08/27/20 09:07 98 H 16 110/76 95 Home Medications Medication Instructions Recorded Confirmed Last Taken Type Acetaminophen [Tylenol] 650 mg PO Q4HPRN PRN 08/27/20 08/27/20 Unknown History Amlodipine Besylate [Norvasc] 2.5 mg PO BID 08/27/20 08/27/20 08/26/20 History Brimonidine Tartrate [Alphagan P] 1 drop OP BID 08/27/20 08/27/20 08/26/20 History Famotidine 20 mg [Pepcid 20 20 mg PO BID 08/27/20 08/27/20 08/26/20 History MG] Levocetirizine Dihydrochloride 5 mg PO DAILY 08/27/20 08/27/20 08/26/20 History [Allergy Relief] PANTOPRAZOLE 40 mg Tablet 40 mg PO QAM 08/27/20 08/27/20 08/26/20 History [Protonix 40MG Tablet] Polyethylene Glycol 3350 17 gm 17 gm PO DAILY 08/27/20 08/27/20 Unknown History [Miralax Powder 17GM PACKET] Sennosides/Docusate Sodium 1 each PO HS 08/27/20 08/27/20 08/26/20 History [Senna-S 8.6-50 mg Tablet] Current Medications Generic Name Dose Route Start Last Admin Trade Name Freq PRN Reason Stop Dose Admin Acetaminophen 650 mg 08/27/20 15:19 08/27/20 21:27 Tylenol 325 Mg PO 09/26/20 15:18 650 mg Q4H PRN PRN Administration Hydrocodone Bitart/Acetaminophen 1 tab 08/27/20 15:12 08/28/20 00:07 [place] 7.5/325 Mg Tab PO 09/01/20 15:11 1 tab Q8H PRN PRN Administration PAIN Al Hydrox/Mg Hydrox/Simethicone 30 ml 08/27/20 13:18 Maalox Es 30 Ml Unit Dose PO 09/26/20 13:17 Q4H PRN PRN INDIGESTION Allopurinol 100 mg 08/28/20 10:00 Zyloprim 100 Mg PO 09/27/20 09:59 DAILY ARIAN Amlodipine Besylate 2.5 mg 08/27/20 22:00 08/27/20 21:21 Norvasc 5 Mg PO 09/26/20 21:59 2.5 mg BID ARIAN Administration Apixaban 5 mg 08/27/20 22:00 08/27/20 21:16 Eliquis 2.5 Mg Tablet PO 09/26/20 21:59 5 mg BID ARIAN Administration Aspirin 325 mg 08/27/20 13:18 08/27/20 16:02 Ecotrin 325 Mg PO 09/26/20 13:17 Not Given DAILY [facility] Brimonidine Tartrate 0 ml 08/27/20 22:00 08/27/20 21:15 Alphagan P 0.15% OP 09/26/20 21:59 5 ml BID ARIAN Administration Carvedilol 25 mg 08/27/20 22:00 08/27/20 21:16 Coreg 12.5 Mg PO 09/26/20 21:59 25 mg BID ARIAN Administration Ergocalciferol 50,000 unit 08/29/20 10:00 Vitamin D2 PO 09/28/20 09:59 [id number] [facility] Famotidine 20 mg 08/27/20 22:00 08/27/20 21:16 Pepcid 20 Mg PO 09/26/20 21:59 20 mg BID ARIAN Administration Hydralazine HCl 25 mg 08/27/20 15:00 08/27/20 21:16 Apresoline 25 Mg Tablet PO 09/26/20 14:59 25 mg TID [facility] Administration Loratadine 10 mg 08/28/20 10:00 Claritin 10 Mg PO 09/27/20 09:59 DAILY [facility] Losartan Potassium 25 mg 08/28/20 10:00 Cozaar 50 Mg PO 09/27/20 09:59 DAILY [facility] Magnesium Hydroxide 30 - 60 ml 08/27/20 13:18 Milk Of Magnesia 30 Ml PO 09/26/20 13:17 QDP PRN CONSTIPATION Magnesium Oxide 400 mg 08/28/20 10:00 Mag-Ox 400 PO 09/27/20 09:59 DAILY [facility] Ondansetron HCl 4 mg 08/27/20 13:18 Zofran 4 Mg/2 Ml Vial IV 09/26/20 13:17 Q4H PRN PRN NAUSEA/VOMITING Pantoprazole Sodium 40 mg 08/28/20 10:00 Protonix 40mg Tablet PO 09/27/20 09:59 QAM [facility] Polyethylene Glycol 17 gm 08/28/20 10:00 Miralax Powder 17gm Packet PO 09/27/20 09:59 DAILY [facility] Prednisone 5 mg 08/27/20 22:00 08/27/20 21:16 Deltasone 5 Mg PO 09/26/20 21:59 5 mg BID ARIAN Administration Senna/Docusate Sodium 2 udtab 08/27/20 13:18 Senokot-S Tablet PO 09/26/20 13:17 BID PRN PRN CONSTIPATION Senna/Docusate Sodium 1 udtab 08/27/20 22:00 08/27/20 21:16 Senokot-S Tablet PO 09/26/20 21:59 1 udtab HS ARIAN Administration Simvastatin 20 mg 08/27/20 22:00 08/27/20 21:16 Zocor 20mg PO 09/26/20 21:59 20 mg HS ARIAN Administration Spironolactone 25 mg 08/28/20 10:00 Aldactone 25 Mg PO 09/27/20 09:59 DAILY [facility] Discontinued Medications Generic Name Dose Route Start Last Admin Trade Name Freq PRN Reason Stop Dose Admin Acetaminophen 650 mg 08/27/20 13:18 Tylenol 325 Mg PO 09/26/20 13:17 Q4H PRN PRN PAIN AND/OR FEVER Albuterol/Ipratropium 3 ml 08/27/20 07:46 08/27/20 08:04 Duoneb 0.5-3 Mg/3 Ml Neb IH 08/27/20 07:47 3 ml STAT ONE Administration Albuterol/Ipratropium Confirm 08/27/20 07:53 Duoneb 0.5-3 Mg/3 Ml Neb Administered 08/27/20 07:54 Dose 3 ml IH .STK-MED ONE Albuterol/Ipratropium 3 ml 08/27/20 13:18 08/27/20 17:42 Duoneb 0.5-3 Mg/3 Ml Neb IH 09/26/20 13:17 Not Given Q4HRT ARIAN Apixaban 5 mg 08/27/20 22:00 08/27/20 12:27 Eliquis 2.5 Mg Tablet PO 09/26/20 21:59 5 mg BID ARIAN Administration Aspirin 324 mg 08/27/20 07:47 08/27/20 07:55 Baby Aspirin 81 Mg Chew PO 08/27/20 07:48 324 mg STAT ONE Administration Aspirin Confirm 08/27/20 07:53 Baby Aspirin 81 Mg Chew Administered 08/27/20 07:54 Dose 324 mg .ROUTE .STK-MED ONE Famotidine 20 mg 08/27/20 13:18 08/27/20 17:42 Pepcid 20 Mg Vial IV 09/26/20 13:17 Not Given Q12HT ARIAN Sodium Chloride Confirm 08/27/20 09:10 Sodium Chloride 0.9% 500 Ml Administered 08/27/20 09:11 Dose 500 mls @ ud IV .STK-MED ONE Sodium Chloride 500 mls @ 500 mls/hr 08/28/20 08:10 08/28/20 08:14 Sodium Chloride 0.9% 500 Ml IV 08/28/20 09:09 Infused .Q1H ONE Infusion Methylprednisolone Sodium Succinate 125 mg 08/27/20 07:46 08/27/20 07:55 Solu-Medrol 125 Mg IV 08/27/20 07:47 125 mg STAT ONE Administration Methylprednisolone Sodium Succinate Confirm 08/27/20 07:53 Solu-Medrol 125 Mg Administered 08/27/20 07:54 Dose 125 mg .ROUTE .STK-MED ONE Nitrofurantoin Macrocrystals 100 mg 08/27/20 12:11 08/27/20 12:22 Macrobid 100mg Capsule PO 08/27/20 12:12 100 mg STAT ONE Administration Nitrofurantoin Macrocrystals Confirm 08/27/20 12:15 Macrobid 100mg Capsule Administered 08/27/20 12:16 Dose 100 mg .ROUTE .STK-MED ONE Non-Formulary Medication 1 each 08/27/20 14:22 08/27/20 16:42 Pharmacy Dosing Request [facility] 08/27/20 14:23 1 each STAT ONE Administration Intake & Output (Last 24 hours) 08/25/20 08/26/20 08/27/20 08/28/20 11:59 11:59 11:59 11:59 Intake Total 360 Output Total 875 Balance -515 Weight 82.554 kg 75.2 kg Microbiology Results (Last 24 hours) 08/27/20 10:56 Urine, Void Urine Culture - Pending 08/27/20 08:08 Blood Blood Culture Gram Stain - Pending 08/27/20 08:08 Blood Blood Culture - Pending 08/27/20 08:00 Blood Blood Culture Gram Stain - Pending 08/27/20 08:00 Blood Blood Culture - Pending Laboratory Results (Last 24 hours) 08/28/20 08/27/20 08/27/20 04:30 20:12 17:05 D-Dimer Sodium Potassium Chloride Carbon Dioxide Anion Gap BUN Creatinine Estimated GFR Glucose Lactic Acid Calcium Magnesium Total Bilirubin AST ALT Alkaline Phosphatase Troponin I 0.150 H* 0.152 H* NT-Pro-B Natriuret Pep Serum Total Protein Albumin Triglycerides 94 Cholesterol 129 LDL Cholesterol 32 HDL Cholesterol 66 H Heart Disease Risk Ratio 2.0 Urine Color Urine Appearance Urine pH Ur Specific [place] Urine Protein Urine Ketones Urine Blood Urine Nitrite Urine Bilirubin Urine Urobilinogen Ur Leukocyte Esterase Urine WBC (Auto) Urine RBC (Auto) U Epithel Cells (Auto) Urine Bacteria (Auto) Urine Mucus (Auto) Urine Culture Reflexed Urine Glucose Influenza Type A Ag Influenza Type B Ag RSV (PCR) SARS-CoV-2 (PCR) 08/27/20 08/27/20 08/27/20 14:00 10:56 10:48 D-Dimer Sodium Potassium Chloride Carbon Dioxide Anion Gap BUN Creatinine Estimated GFR Glucose Lactic Acid Calcium Magnesium Total Bilirubin AST ALT Alkaline Phosphatase Troponin I 0.166 H* 0.163 H* NT-Pro-B Natriuret Pep Serum Total Protein Albumin Triglycerides Cholesterol LDL Cholesterol HDL Cholesterol Heart Disease Risk Ratio Urine Color YELLOW Urine Appearance CLEAR Urine pH 5.0 Ur Specific [place] 1.021 Urine Protein NEGATIVE Urine Ketones NEGATIVE Urine Blood SMALL Urine Nitrite POSITIVE Urine Bilirubin NEGATIVE Urine Urobilinogen NEGATIVE Ur Leukocyte Esterase TRACE Urine WBC (Auto) 6-10 Urine RBC (Auto) NONE U Epithel Cells (Auto) NONE Urine Bacteria (Auto) FEW Urine Mucus (Auto) SLIGHT Urine Culture Reflexed YES Urine Glucose NEGATIVE Influenza Type A Ag Influenza Type B Ag RSV (PCR) SARS-CoV-2 (PCR) 08/27/20 08/27/20 08/27/20 10:38 10:26 08:00 D-Dimer Sodium Potassium Chloride Carbon Dioxide Anion Gap BUN Creatinine Estimated GFR Glucose Lactic Acid 1.6 Calcium Magnesium Total Bilirubin AST ALT Alkaline Phosphatase Troponin I 0.120 H* NT-Pro-B Natriuret Pep Serum Total Protein Albumin Triglycerides Cholesterol LDL Cholesterol HDL Cholesterol Heart Disease Risk Ratio Urine Color Urine Appearance Urine pH Ur Specific [place] Urine Protein Urine Ketones Urine Blood Urine Nitrite Urine Bilirubin Urine Urobilinogen Ur Leukocyte Esterase Urine WBC (Auto) Urine RBC (Auto) U Epithel Cells (Auto) Urine Bacteria (Auto) Urine Mucus (Auto) Urine Culture Reflexed Urine Glucose Influenza Type A Ag NEGATIVE Influenza Type B Ag NEGATIVE RSV (PCR) NEGATIVE SARS-CoV-2 (PCR) NEGATIVE 08/27/20 08/27/20 08/27/20 08:00 08:00 08:00 D-Dimer 00806 H* Sodium 135 L Potassium 4.9 Chloride 97 L Carbon Dioxide 22 Anion Gap 19.8 H BUN 42 H Creatinine 1.17 H Estimated GFR 46.5 Glucose 162 H Lactic Acid Calcium 9.9 Magnesium 2.0 Total Bilirubin 0.60 AST 33 ALT 29 Alkaline Phosphatase 51 Troponin I NT-Pro-B Natriuret Pep 146 Serum Total Protein 6.6 Albumin 4.2 Triglycerides Cholesterol LDL Cholesterol HDL Cholesterol Heart Disease Risk Ratio Urine Color Urine Appearance Urine pH Ur Specific [place] Urine Protein Urine Ketones Urine Blood Urine Nitrite Urine Bilirubin Urine Urobilinogen Ur Leukocyte Esterase Urine WBC (Auto) Urine RBC (Auto) U Epithel Cells (Auto) Urine Bacteria (Auto) Urine Mucus (Auto) Urine Culture Reflexed Urine Glucose Influenza Type A Ag NEGATIVE Influenza Type B Ag NEGATIVE RSV (PCR) SARS-CoV-2 (PCR) Orders (Last 24 hours) Category Date Time Status Bedrest ROUTINE Activity 08/27/20 13:18 Active Up With Assistance ROUTINE Activity 08/27/20 13:18 Active Window Installation Subcontractor STAT Care 08/27/20 07:47 Completed Code Status Order ROUTINE Care 08/27/20 13:18 Active EKG-ER Only STAT Care 08/27/20 07:46 Completed IV Care Q6H Care 08/27/20 13:18 Active IV Insertion STAT Care 08/27/20 07:46 Completed Implement Chest Pain Pathway ROUTINE Care 08/27/20 13:18 Active Oxygen-ED Only Nasal Cannula 4 lpm Care 08/27/20 07:[address] in Observation ROUTINE Care 08/27/20 13:18 Active [place] Apply ROUTINE Care 08/27/20 13:18 Active Weight,Daily 0600 Care 08/27/20 13:18 Active Heart-Healthy Diet Diet 08/27/20 Lunch Active CHEST 1 VIEW (PORTABLE) Stat Exams 08/27/20 07:47 Completed CHEST WITH CONTRAST [CT] Stat Exams 08/27/20 09:02 Completed BLOOD CULTURE Stat Lab 08/27/20 08:08 Received CBC W DIFF Stat Lab 08/27/20 08:00 Completed CMP Stat Lab 08/27/20 08:00 Completed CULTURE,URINE Stat Lab 08/27/20 10:56 Received D-DIMER QUANTITATIVE Stat Lab 08/27/20 08:00 Completed INFLUENZA A+B LOCO Stat Lab 08/27/20 08:00 Completed LIPID PROFILE AM.LAB Lab 08/28/20 04:30 Completed Lactic Acid Stat Lab 08/27/20 08:09 Completed Lactic Acid Stat Lab 08/27/20 10:26 Completed MAGNESIUM Stat Lab 08/27/20 08:00 Completed NT PRO BNP Stat Lab 08/27/20 08:00 Completed TROPONIN Q3H Lab 08/27/20 08:00 Completed TROPONIN Q3H Lab 08/27/20 10:48 Completed TROPONIN Q3H Lab 08/27/20 14:00 Completed TROPONIN Q3H Lab 08/27/20 17:05 Completed TROPONIN Q3H Lab 08/27/20 20:12 Completed UA W/RFX UR CULTURE Stat Lab 08/27/20 10:56 Completed Acetaminophen 325 mg [Tylenol 325 mg] Med 08/27/20 13:18 Discontinued 650 mg PO Q4H PRN PRN Acetaminophen 325 mg [Tylenol 325 mg] Med 08/27/20 15:19 Active 650 mg PO Q4H PRN PRN Albuterol/Ipratropium 3ml Neb* [DUONEB 0.5-3 MG/3 ml Med 08/27/20 07:53 Discontinued Neb] 3 ml IH .STK-MED ONE Albuterol/Ipratropium 3ml Neb* [DUONEB 0.5-3 MG/3 ml Med 08/27/20 13:18 Discontinued Neb] 3 ml IH Q4HRT Albuterol/Ipratropium 3ml Neb* [DUONEB 0.5-3 MG/3 ml Med 08/27/20 07:46 Discontinued Neb] 3 ml IH STAT ONE Allopurinol 100 mg [Zyloprim 100 mg] Med 08/28/20 10:00 Active 100 mg PO DAILY Amlodipine Besylate 5 mg [Norvasc 5 mg] Med 08/27/20 22:00 Active 2.5 mg PO BID Apixaban [Eliquis 2.5 mg Tablet] Med 08/27/20 22:00 Active 5 mg PO BID Apixaban [Eliquis 2.5 mg Tablet] Med 08/27/20 22:00 Discontinued 5 mg PO BID Aspirin 81 gm Chew [Baby Aspirin 81 mg Chew] Med 08/27/20 07:53 Discontinued 324 mg .ROUTE .STK-MED ONE Aspirin 81 gm Chew [Baby Aspirin 81 mg Chew] Med 08/27/20 07:47 Discontinued 324 mg PO STAT ONE Aspirin EC 325 mg [Ecotrin 325 MG] Med 08/27/20 13:18 Active 325 mg PO DAILY Brimonidine Tartrate [Alphagan P 0.15%] Med 08/27/20 22:00 Active 0 ml OP BID Carvedilol 12.5 mg [Coreg 12.5 mg] Med 08/27/20 22:00 Active 25 mg PO BID Ergocalciferol (Vitamin D2) [Vitamin D2] Med 08/29/20 10:00 Active 50,000 unit PO TuFr@1000 Famotidine 20 mg Vial [Pepcid 20 MG VIAL] Med 08/27/20 13:18 Discontinued 20 mg IV Q12HT Famotidine 20 mg [Pepcid 20 MG] Med 08/27/20 22:00 Active 20 mg PO BID HydrALAzine HCL 25 MG TAB [Apresoline 25 MG TABLET Med 08/27/20 15:00 Active *] 25 mg PO TID Hydrocodone /APAP 7.5/325 mg [[place] 7.5/325 mg Tab Med 08/27/20 15:12 Active ] 1 tab PO Q8H PRN PRN Loratadine 10 mg [Claritin 10 mg] Med 08/28/20 10:00 Active 10 mg PO DAILY Losartan Potassium 50 mg [Cozaar 50 MG] Med 08/28/20 10:00 Active 25 mg PO DAILY Mag Hydrox/Al Hydrox/Simeth [Maalox Es 30 ml Unit Med 08/27/20 13:18 Active Dose] 30 ml PO Q4H PRN PRN Magnesium Hydroxide 30 ml [Milk of Magnesia 30 ml Med 08/27/20 13:18 Active ] 30 - 60 ml PO QDP PRN Magnesium Oxide 400 mg [Mag-Ox 400] Med 08/28/20 10:00 Active 400 mg PO DAILY Methylprednis Sod Succ 125 mg* [solu-MEDROL 125 MG] Med 08/27/20 07:53 Discontinued 125 mg .ROUTE .STK-MED ONE Methylprednis Sod Succ 125 mg* [solu-MEDROL 125 MG] Med 08/27/20 07:46 Discontinued 125 mg IV STAT ONE NaCl 0.9% 500 ml [Sodium Chloride 0.9% 500 ML] 500 ml Med 08/28/20 08:10 Discontinued IV 500 mls/hr NaCl 0.9% 500 ml [Sodium Chloride 0.9% 500 ML] 500 ml Med 08/27/20 09:10 Discontinued IV UD Nitrofurantoin Macro 100 mg [Macrobid 100MG Capsule* Med 08/27/20 12:15 Discontinued ] 100 mg .ROUTE .STK-MED ONE Nitrofurantoin Macro 100 mg [Macrobid 100MG Capsule* Med 08/27/20 12:11 Discontinued ] 100 mg PO STAT ONE Ondansetron HCl 4 mg/2 ml [Zofran 4 MG/2 ML VIAL] Med 08/27/20 13:18 Active 4 mg IV Q4H PRN PRN PANTOPRAZOLE 40 mg Tablet [Protonix 40MG Tablet] Med 08/28/20 10:00 Active 40 mg PO QAM Pharmacy Dosing Request Med 08/27/20 14:22 Discontinued 1 each [facility] STAT ONE Polyethylene Glycol 3350 17 gm [Miralax Powder 17GM Med 08/28/20 10:00 Active PACKET] 17 gm PO DAILY Prednisone 5 mg [Deltasone 5 mg] Med 08/27/20 22:00 Active 5 mg PO BID Senna/Docusate Sodium Tab [Senokot-S Tablet] Med 08/27/20 22:00 Active 1 udtab PO HS Senna/Docusate Sodium Tab [Senokot-S Tablet] Med 08/27/20 13:18 Active 2 udtab PO BID PRN PRN Simvastatin 20Mg [Zocor 20Mg] Med 08/27/20 22:00 Active 20 mg PO HS Spironolactone 25 mg [Aldactone 25 MG] Med 08/28/20 10:00 Active 25 mg PO DAILY EKG Q8HX2,QAMX3,PRN RT 08/27/20 13:18 Completed EKG ROUTINE RT 08/28/20 05:00 Completed EKG ROUTINE RT 08/29/20 05:00 Active EKG ROUTINE RT 08/30/20 05:00 Active Oxygen Nasal Cannula 3 lpm RT 08/27/20 14:17 Active Peak Expiratory Flow Rate ONCE RT 08/27/20 08:05 Completed Pulse Oximetry .spot check RT 08/27/20 13:18 Active Respiratory Therapy Assessment DAILY RT 08/27/20 08:05 Completed Respiratory Therapy Assessment DAILY RT 08/27/20 14:21 Completed Code(s): I26.99 - OTHER PULMONARY EMBOLISM WITHOUT ACUTE COR PULMONALE (2) Elevated troponin Current Visit: Yes Status: Acute Code(s): R77.8 - OTHER SPECIFIED ABNORMALITIES OF PLASMA PROTEINS (3) Elevated troponin level not due to acute coronary syndrome Current Visit: Yes Status: Acute Code(s): R77.8 - OTHER SPECIFIED ABNORMALITIES OF PLASMA PROTEINS (4) Dyspnea Current Visit: Yes Status: Acute Qualifiers: Dyspnea type: other forms of dyspnea Qualified Code(s): R06.09 - Other forms of dyspnea Code(s): R06.00 - DYSPNEA, UNSPECIFIED
[2020-08-28] MEDS ORDERED: [UNRECOGNIZED DRUG - REMARK] PO SCH (10:00)
[2020-08-28] MEDS ORDERED: NON-FORMULARY ITEM (Losartan Potassium [Losartan Potassium] 25 MG) PO SCH (10:00)
[2020-08-28] MEDS: Miralax Powder 17GM PACKET PO SCH (10:39)
[2020-08-28] MEDS: NORVASC 5 MG PO SCH ×2 (10:40→22:26)
[2020-08-28] MEDS: Cozaar 50 MG PO SCH (10:41)
[2020-08-28] MEDS: MAG-OX 400 PO SCH (10:41)
[2020-08-28] MEDS: Pepcid 20 MG PO SCH ×2 (10:41→22:26)
[2020-08-28] MEDS: COREG 12.5 MG PO SCH ×2 (10:42→22:26)
[2020-08-28] MEDS: Apresoline 25 MG TABLET PO SCH ×3 (10:42→22:26)
[2020-08-28] MEDS: CLARITIN 10 MG PO SCH (10:42)
[2020-08-28] MEDS: Protonix 40MG Tablet PO SCH (10:42)
[2020-08-28] MEDS: DELTASONE 5 MG PO SCH ×2 (10:42→22:26)
[2020-08-28] MEDS: Aldactone 25 MG PO SCH (10:42)
[2020-08-28] MEDS: Ecotrin 325 MG PO SCH (10:42)
[2020-08-28] MEDS: ELIQUIS 2.5 MG TABLET PO SCH ×2 (10:43→22:26)
[2020-08-28] MEDS: ZYLOPRIM 100 MG PO SCH (10:43)
[2020-08-28] MEDS: Alphagan P 0.15% OP SCH ×2 (10:43→22:25)
[2020-08-28] MEDS: TYLENOL 325 MG PO PRN (15:44)
[2020-08-28] MEDS: ZOCOR 20MG PO SCH (22:27)
[2020-08-28] MEDS: Senokot-S Tablet PO SCH (22:27)
[2020-08-29] MEDS: TYLENOL 325 MG PO PRN (04:24)
[2020-08-29 05:34] LABS: Hematocrit 33.9 % (35-47); Hemoglobin 10.7 gm/dl (12.0-16.0); Mean Cell Volume 100.9 fl (78-100); Mean Corpuscular Hemoglobin 31.8 pg (26-32); Mean Corpuscular Hgb Concent. 31.6 g/dl (32-36); Mean Platelet Volume 9.5 fl (7.5-11.0); Platelet Count 208 K/mm3 (150-450); Red Blood Count 3.36 M/mm3 (4.1-5.4); Red Cell Distribution Width 13.5 % (11.5-14.0); White Blood Count 9.6 K/mm3 (4.0-10.5)
[2020-08-29 06:01] LABS: ALBUMIN 3.6 g/dL (3.5-5.0); ALKALINE PHOSPHATASE 43 U/L (38-126); ANION GAP 14.6 MEQ/L (5-15); BLOOD UREA NITROGEN 38 mg/dL (7-17); CHLORIDE 99 mmol/L (98-107); Calcium 9.6 mg/dL (8.4-10.2); Carbon Dioxide 24 mmol/L (22-30); Creatinine 1 0.92 mg/dL (0.52-1.04); EST GLOMERULAR FILTRATION RATE > 60.0 ML/MIN; Glucose 111 mg/dL (74-106); Potassium 4.5 mmol/L (3.5-5.1); SGOT/AST 23 U/L (14-36); SGPT/ALT 22 U/L (0-35); SODIUM 133 mmol/L (137-145); Total Protein 5.9 g/dL (6.3-8.2)
[2020-08-29 06:10] LABS: TROPONIN 0.092 ng/mL (0.000-0.034)
--- NOTE | 2020-08-29 07:58 | CONS ---
CONSULT DATE: 08/28/2020 BRIEF HISTORY: This is an 89 year-old female who was seen because of elevated troponin I with diagnosis of pulmonary embolism. The patient was doing well until 0400 hours this morning when she was awakened with shortness of breath. She eventually had gone to the emergency room of [facility]. Subsequent studies including CT-A of the chest did show pulmonary embolism. The patient has had previous pulmonary embolism which occurred about two years ago and was on anticoagulant but this was stopped after a year of treatment. She denies any chest pain. She has never had myocardial infarction. Her troponin I is mildly elevated at 0.172. EKG shows sinus rhythm with a left bundle branch block. CARDIAC RISK FACTORS: Negative for diabetes. Positive for hypertension. She does not smoke. She has hyperlipidemia. REVIEW OF SYSTEMS: PIPE LINE GAUGER: No history of stroke or seizures. RESPIRATORY: Occasional cough but no hemoptysis. GI: No history of peptic ulcer or colon disorder. : She has history of renal insufficiency. PERIPHERAL VASCULAR: No history of deep vein thrombosis or claudication. PAST SURGICAL HISTORY: Right hip replacement. Bladder repair. CURRENT MEDICATIONS: Allopurinol, amlodipine 2.5 mg b.i.d., Alphagan eye drop b.i.d., carvedilol 25 mg b.i.d., vitamin D2, famotidine b.i.d., hydralazine 25 mg t.i.d., losartan 25 mg a day, magnesium 400 mg a day, Protonix 40 mg a day, prednisone 5 mg twice a day, Simvastatin 20 mg a day, Spironolactone 25 mg. SOCIAL HISTORY: She lives with her daughter. She has no significant alcohol intake. PHYSICAL EXAMINATION: Her blood pressure 101/56, heart rate 74, respirations 114. GENERAL: The patient is an elderly female who is alert, oriented, not in any form of distress and is comfortable in the semi-recumbent position. HEENT: Unremarkable. NECK: No significant JVD. No carotid bruit. CHEST: The breath sounds are harsh but no rhonchi. CARDIAC: Heart tones are within normal. The rhythm is regular. There is a grade 2/6 mid systolic murmur. ABDOMEN: Soft with normal bowel sounds. EXTREMITIES: There is some bruising in the lower extremities. No significant leg edema with 2+ posterior and dorsalis pedis pulses. LAB DATA AND DIAGNOSTIC TESTS: Creatinine 1.1, BUN 42 with [place] [address] [place] of the chest did show pulmonary embolism. IMPRESSION: In essence the patient has pulmonary embolism. I agree with DOAC (direct oral anticoagulant), will likely need a therapeutic dose for the next six months and thereafter will need to be on anticoagulants indefinitely. She appears to be hemodynamically stable and her heart rate is in the normal range. The elevated troponin is slightly related to the pulmonary embolism. I will follow up with you.
[2020-08-29 08:26] VITALS: O2SAT 98
[2020-08-29] MEDS: Aldactone 25 MG PO SCH (09:13)
[2020-08-29] MEDS: Alphagan P 0.15% OP SCH (09:15)
[2020-08-29] MEDS: Apresoline 25 MG TABLET PO SCH (09:18)
[2020-08-29] MEDS: CLARITIN 10 MG PO SCH (09:19)
[2020-08-29] MEDS: COREG 12.5 MG PO SCH (09:20)
[2020-08-29] MEDS: Cozaar 50 MG PO SCH (09:21)
[2020-08-29] MEDS: DELTASONE 5 MG PO SCH (09:23)
[2020-08-29] MEDS: Pepcid 20 MG PO SCH (09:23)
[2020-08-29] MEDS: ZYLOPRIM 100 MG PO SCH (09:23)
[2020-08-29] MEDS: ELIQUIS 2.5 MG TABLET PO SCH (09:24)
[2020-08-29] MEDS: Ecotrin 325 MG PO SCH (09:24)
[2020-08-29] MEDS: MAG-OX 400 PO SCH (09:24)
[2020-08-29] MEDS: NORVASC 5 MG PO SCH (09:25)
[2020-08-29] MEDS: Protonix 40MG Tablet PO SCH (09:26)
[2020-08-29] MEDS: Miralax Powder 17GM PACKET PO SCH (09:26)
[2020-08-29] MEDS: NORCO 7.5/325 MG TAB PO PRN (09:41)
[2020-08-29] MEDS ORDERED: VITAMIN D2 PO SCH (10:00)
--- NOTE | 2020-08-29 11:09 | XRAY ---
Indication: Pulmonary embolus. Edema. Two-dimensional sonogram and color Doppler imaging of the major venous vessels of the left and right leg was performed. Comparison: January 10, 2019. Examination of the left leg demonstrates new occluding thrombi throughout the femoral vein. No thrombus seen in the remaining deep venous vessels of the left and right leg including greater saphenous vein. Patent veins demonstrate normal compressibility. Venous waveforms are normal with and without augmentation. Impression: 1. New left femoral vein occluding DVT. 2. Right leg negative for DVT.
[2020-08-29 12:33] VITALS: BP 112/68; PULSE 70
--- NOTE | 2020-09-01 16:37 | PCM.DS ---
Discharge Summary Date of Admission: 08/27/20 13:00 Admitting Physician: CONRADO VILLALTA Consults: Consults on Case 08/28/20 12:30 Consult Cardiology ROUTINE Primary Care Provider: CONRADO VILLALTA Allergies Allergies codeine [Codeine] Allergy (Mild, Verified 11/05/18 08:45) Rash Penicillins Allergy (Unknown, Verified 11/05/18 08:45) RASH/UPSET STOMACH Sulfa (Sulfonamide Antibiotics) [Sulfa(Sulfonamide Antibiotics)] Allergy (Unknown, Verified 11/05/18 08:45) Rash cephalexin [From Keflex] Allergy (Verified 11/05/18 08:45) ciprofloxacin [From Cipro] Allergy (Verified 11/05/18 08:45) metronidazole [From Flagyl] Adverse Reaction (Verified 11/05/18 08:45) Nausea and Vomiting Hospital Summary - Hospital Course Hospital Course: Chief Complaint Diagnosis shortness of breath for 1 day Allergies Allergy/AdvReac Type Severity Reaction Status Date / Time codeine [Codeine] Allergy Mild Rash Verified 11/05/18 08:45 Penicillins Allergy Unknown RASH/UPSET Verified 11/05/18 08:45 STOMACH Sulfa (Sulfonamide Allergy Unknown Rash Verified 11/05/18 08:45 Antibiotics) [Sulfa(Sulfonamide Antibiotics)] cephalexin [From Keflex] Allergy Verified 11/05/18 08:45 ciprofloxacin [From Cipro] Allergy Verified 11/05/18 08:45 metronidazole [From Flagyl] AdvReac Nausea and Verified 11/05/18 08:45 Vomiting Home Medications Medication Instructions Recorded Confirmed Last Taken Type Acetaminophen [Tylenol] 650 mg PO Q4HPRN PRN 08/27/20 08/27/20 Unknown History Amlodipine Besylate [Norvasc] 2.5 mg PO BID 08/27/20 08/27/20 08/26/20 History Brimonidine Tartrate [Alphagan P] 1 drop OP BID 08/27/20 08/27/20 08/26/20 History Famotidine 20 mg [Pepcid 20 20 mg PO BID 08/27/20 08/27/20 08/26/20 History MG] Levocetirizine Dihydrochloride 5 mg PO DAILY 08/27/20 08/27/20 08/26/20 History [Allergy Relief] PANTOPRAZOLE 40 mg Tablet 40 mg PO QAM 08/27/20 08/27/20 08/26/20 History [Protonix 40MG Tablet] Polyethylene Glycol 3350 17 gm 17 gm PO DAILY 08/27/20 08/27/20 Unknown History [Miralax Powder 17GM PACKET] Sennosides/Docusate Sodium 1 each PO HS 08/27/20 08/27/20 08/26/20 History [Senna-S 8.6-50 mg Tablet] Apixaban [Eliquis 2.5 mg Tablet] 5 mg PO BID #30 tablet 08/29/20 Unknown Rx Aspirin EC 325 mg [Ecotrin 325 325 mg PO DAILY tablet.ec 08/29/20 Unknown Rx MG] Levofloxacin [Levaquin] 250 mg PO DAILY #5 tablet 08/29/20 Unknown Rx Senna/Docusate Sodium Tab 2 udtab PO BID PRN PRN tablet 08/29/20 Unknown Rx [Senokot-S Tablet] Current Medications Discontinued Medications Generic Name Dose Route Start Last Admin Trade Name Freq PRN Reason Stop Dose Admin Acetaminophen 650 mg 08/27/20 13:18 Tylenol 325 Mg PO 09/26/20 13:17 Q4H PRN PRN PAIN AND/OR FEVER Acetaminophen 650 mg 08/27/20 15:19 08/29/20 04:24 Tylenol 325 Mg PO 09/26/20 15:18 650 mg Q4H PRN PRN Administration Hydrocodone Bitart/Acetaminophen 1 tab 08/27/20 15:12 08/29/20 09:41 Clemons 7.5/325 Mg Tab PO 09/01/20 15:11 1 tab Q8H PRN PRN Administration PAIN Al Hydrox/Mg Hydrox/Simethicone 30 ml 08/27/20 13:18 Maalox Es 30 Ml Unit Dose PO 09/26/20 13:17 Q4H PRN PRN INDIGESTION Albuterol/Ipratropium 3 ml 08/27/20 07:46 08/27/20 08:04 Duoneb 0.5-3 Mg/3 Ml Neb IH 08/27/20 07:47 3 ml STAT ONE Administration Albuterol/Ipratropium Confirm 08/27/20 07:53 Duoneb 0.5-3 Mg/3 Ml Neb Administered 08/27/20 07:54 Dose 3 ml IH .STK-MED ONE Albuterol/Ipratropium 3 ml 08/27/20 13:18 08/27/20 17:42 Duoneb 0.5-3 Mg/3 Ml Neb IH 09/26/20 13:17 Not Given Q4HRT ARIAN Allopurinol 100 mg 08/28/20 10:00 08/29/20 09:23 Zyloprim 100 Mg PO 09/27/20 09:59 100 mg DAILY ARIAN Administration Amlodipine Besylate 2.5 mg 08/27/20 22:00 08/29/20 09:25 Norvasc 5 Mg PO 09/26/20 21:59 2.5 mg BID ARIAN Administration Apixaban 5 mg 08/27/20 22:00 08/27/20 12:27 Eliquis 2.5 Mg Tablet PO 09/26/20 21:59 5 mg BID ARIAN Administration Apixaban 5 mg 08/27/20 22:00 08/29/20 09:24 Eliquis 2.5 Mg Tablet PO 09/26/20 21:59 5 mg BID ARIAN Administration Aspirin 324 mg 08/27/20 07:47 08/27/20 07:55 Baby Aspirin 81 Mg Chew PO 08/27/20 07:48 324 mg STAT ONE Administration Aspirin Confirm 08/27/20 07:53 Baby Aspirin 81 Mg Chew Administered 08/27/20 07:54 Dose 324 mg .ROUTE .STK-MED ONE Aspirin 325 mg 08/27/20 13:18 08/29/20 09:24 Ecotrin 325 Mg PO 09/26/20 13:17 325 mg DAILY ARIAN Administration Brimonidine Tartrate 0 ml 08/27/20 22:00 08/29/20 09:15 Alphagan P 0.15% OP 09/26/20 21:59 5 ml BID ARIAN Administration Carvedilol 25 mg 08/27/20 22:00 08/29/20 09:20 Coreg 12.5 Mg PO 09/26/20 21:59 25 mg BID ARIAN Administration Ergocalciferol 50,000 unit 08/29/20 10:00 08/29/20 09:42 Vitamin D2 PO 09/28/20 09:59 50,000 unit TuFr@1000 ARIAN Administration Famotidine 20 mg 08/27/20 13:18 08/27/20 17:42 Pepcid 20 Mg Vial IV 09/26/20 13:17 Not Given Q12HT ARIAN Famotidine 20 mg 08/27/20 22:00 08/29/20 09:23 Pepcid 20 Mg PO 09/26/20 21:59 20 mg BID ARIAN Administration Hydralazine HCl 25 mg 08/27/20 15:00 08/29/20 09:18 Apresoline 25 Mg Tablet PO 09/26/20 14:59 25 mg TID ARIAN Administration Sodium Chloride Confirm 08/27/20 09:10 Sodium Chloride 0.9% 500 Ml Administered 08/27/20 09:11 Dose 500 mls @ ud IV .STK-MED ONE Sodium Chloride 500 mls @ 500 mls/hr 08/28/20 08:10 08/28/20 08:14 Sodium Chloride 0.9% 500 Ml IV 08/28/20 09:09 Infused .Q1H ONE Infusion Loratadine 10 mg 08/28/20 10:00 08/29/20 09:19 Claritin 10 Mg PO 09/27/20 09:59 10 mg DAILY ARIAN Administration Losartan Potassium 25 mg 08/28/20 10:00 08/29/20 09:21 Cozaar 50 Mg PO 09/27/20 09:59 25 mg DAILY ARIAN Administration Magnesium Hydroxide 30 - 60 ml 08/27/20 13:18 Milk Of Magnesia 30 Ml PO 09/26/20 13:17 QDP PRN CONSTIPATION Magnesium Oxide 400 mg 08/28/20 10:00 08/29/20 09:24 Mag-Ox 400 PO 09/27/20 09:59 400 mg DAILY ARIAN Administration Methylprednisolone Sodium Succinate 125 mg 08/27/20 07:46 08/27/20 07:55 Solu-Medrol 125 Mg IV 08/27/20 07:47 125 mg STAT ONE Administration Methylprednisolone Sodium Succinate Confirm 08/27/20 07:53 Solu-Medrol 125 Mg Administered 08/27/20 07:54 Dose 125 mg .ROUTE .STK-MED ONE Nitrofurantoin Macrocrystals 100 mg 08/27/20 12:11 08/27/20 12:22 Macrobid 100mg Capsule PO 08/27/20 12:12 100 mg STAT ONE Administration Nitrofurantoin Macrocrystals Confirm 08/27/20 12:15 Macrobid 100mg Capsule Administered 08/27/20 12:16 Dose 100 mg .ROUTE .STK-MED ONE Non-Formulary Medication 1 each 08/27/20 14:22 08/27/20 16:42 Pharmacy Dosing Request MC 08/27/20 14:23 1 each STAT ONE Administration Ondansetron HCl 4 mg 08/27/20 13:18 Zofran 4 Mg/2 Ml Vial IV 09/26/20 13:17 Q4H PRN PRN NAUSEA/VOMITING Pantoprazole Sodium 40 mg 08/28/20 10:00 08/29/20 09:26 Protonix 40mg Tablet PO 09/27/20 09:59 40 mg QAM ARIAN Administration Polyethylene Glycol 17 gm 08/28/20 10:00 08/29/20 09:26 Miralax Powder 17gm Packet PO 09/27/20 09:59 17 gm DAILY ARIAN Administration Prednisone 5 mg 08/27/20 22:00 08/29/20 09:23 Deltasone 5 Mg PO 09/26/20 21:59 5 mg BID ARIAN Administration Senna/Docusate Sodium 2 udtab 08/27/20 13:18 Senokot-S Tablet PO 09/26/20 13:17 BID PRN PRN CONSTIPATION Senna/Docusate Sodium 1 udtab 08/27/20 22:00 08/28/20 22:27 Senokot-S Tablet PO 09/26/20 21:59 1 udtab HS ARIAN Administration Simvastatin 20 mg 08/27/20 22:00 08/28/20 22:27 Zocor 20mg PO 09/26/20 21:59 20 mg HS ARIAN Administration Spironolactone 25 mg 08/28/20 10:00 08/29/20 09:13 Aldactone 25 Mg PO 09/27/20 09:59 25 mg DAILY ARIAN Administration Intake & Output (Last 24 hours) 08/30/20 08/31/20 09/01/20 09/02/20 11:59 11:59 11:59 11:59 Intake Total 240 Balance 240 - Vitals & Intake/Output Vital Signs: Vital Signs Temperature 98.0 F 08/29/20 12:00 Pulse Rate 70 08/29/20 12:00 Respiratory Rate 18 08/29/20 12:00 Blood Pressure 112/68 08/29/20 12:00 O2 Sat by Pulse Oximetry 98 08/29/20 12:02 Intake & Output: Intake & Output 08/30/20 08/31/20 09/01/20 09/02/20 11:59 11:59 11:59 11:59 Intake Total 240 Balance 240 - Lab Result Diagrams: 08/29/20 04:47 08/29/20 04:47 Micro Results-Entire Visit: Microbiology 08/27/20 08:08 Blood Culture Gram Stain - Final Blood Not Reportable Blood Culture - Final NO GROWTH 08/27/20 08:00 Blood Culture Gram Stain - Final Blood Not Reportable Blood Culture - Final NO GROWTH 08/27/20 10:56 Urine Culture - Final Urine, Void Enterobacter Clocae Complex - Procedures and Test Procedures and Tests throughout Hospitalization: Therapy Orders & Screens 08/27/20 08:05 Peak Expiratory Flow Rate ONCE Comment: Reason For Exam: Respiratory Therapy Assessment DAILY Comment: 08/27/20 13:18 EKG Q8HX2,QAMX3,PRN Comment: 08/27/20 14:17 Oxygen Nasal Cannula 3 lpm Comment: Diagnosis: Dyspnea 08/27/20 14:21 Respiratory Therapy Assessment DAILY Comment: Diagnosis: Dyspnea 08/28/20 05:00 EKG ROUTINE Comment: Diagnosis: Dyspnea, PE 08/28/20 11:01 RT Miscellaneous Order ROUTINE Comment: Physician Instructions: Reason For Exam: WEAN OFF OXYGEN FRANTZ. - DOES NOT WEAR AT HOME Diagnosis: shortness of breath for 1 day 08/28/20 18:56 OT Eval and Treat (MD Order) ONCE Comment: Consulting Provider: Physician Instructions: Reason For Exam: Diagnosis: shortness of breath for 1 day PT Eval & Treat (MD Order) ONCE Reason for Eval:: activity intolerance due to shortness of breath Diagnosis: shortness of breath for 1 day 08/29/20 05:00 EKG ROUTINE Comment: Diagnosis: Dyspnea, PE 08/30/20 05:00 EKG ROUTINE Comment: Diagnosis: Dyspnea, PE Discharge Exam General Appearance: no apparent distress, alert Neurologic Exam: alert, oriented x 3, cooperative, normal mood/affect, nml cerebellar function, sensation nml, No motor deficits Eye Exam: PERRL, EOMI, eyes nml inspection Ears, Nose, Throat Exam: normal ENT inspection, pharynx normal, moist mucous membranes Neck Exam: normal inspection, non-tender, supple, full range of motion Respiratory Exam: normal breath sounds, lungs clear, No respiratory distress Cardiovascular Exam: regular rate/rhythm, normal heart sounds Gastrointestinal/Abdomen Exam: soft, No tenderness, No mass Pelvic Exam: deferred Rectal Exam: deferred Back Exam: normal inspection, normal range of motion, No CVA tenderness, No vertebral tenderness Extremity Exam: normal inspection, normal range of motion Skin Exam: normal color, warm, dry Final Diagnosis/Problem List - Final Discharge Diagnosis/Problem (1) Pulmonary embolism Status: Acute Assessment & Plan: Last Vital Signs Temp 98.0 F 08/29/20 12:00 Pulse 70 08/29/20 12:00 Resp 18 08/29/20 12:00 BP 112/68 08/29/20 12:00 Pulse Ox 98 08/29/20 12:02 Allergies codeine [Codeine] Allergy (Mild, Verified 11/05/18 08:45) Rash Penicillins Allergy (Unknown, Verified 11/05/18 08:45) RASH/UPSET STOMACH Sulfa (Sulfonamide Antibiotics) [Sulfa(Sulfonamide Antibiotics)] Allergy (Unknown, Verified 11/05/18 08:45) Rash cephalexin [From Keflex] Allergy (Verified 11/05/18 08:45) ciprofloxacin [From Cipro] Allergy (Verified 11/05/18 08:45) metronidazole [From Flagyl] Adverse Reaction (Verified 11/05/18 08:45) Nausea and Vomiting Code(s): I26.99 - OTHER PULMONARY EMBOLISM WITHOUT ACUTE COR PULMONALE (2) Elevated troponin Status: Acute Code(s): R77.8 - OTHER SPECIFIED ABNORMALITIES OF PLASMA PROTEINS (3) Elevated troponin level not due to acute coronary syndrome Status: Acute Code(s): R77.8 - OTHER SPECIFIED ABNORMALITIES OF PLASMA PROTE INS (4) Dyspnea Status: Acute Code(s): R06.00 - DYSPNEA, UNSPECIFIED - Discharge Discharge Date: 09/01/20 Disposition: Home, Self-Care Condition: Stable Prescriptions: New Apixaban [Eliquis 2.5 mg Tablet] 5 mg PO BID #30 tablet Levofloxacin [Levaquin] 250 mg PO DAILY #5 tablet Aspirin EC 325 mg [Ecotrin 325 MG] 325 mg PO DAILY tablet.ec Senna/Docusate Sodium Tab [Senokot-S Tablet] 2 udtab PO BID PRN PRN tablet PRN Reason: CONSTIPATION Continue Ergocalciferol (Vitamin D2) [Vitamin D2] 50,000 iu PO WEEKLY Magnesium Oxide 400 mg [Mag-Ox 400] 400 mg PO DAILY Allopurinol 100 mg [Zyloprim 100 mg] 100 mg PO DAILY Simvastatin 20Mg [Zocor 20Mg] 20 mg PO HS Spironolactone 25 mg [Aldactone 25 MG] 25 mg PO DAILY Hydrocodone Bit/Acetaminophen [Clemons 7.5-325 Tablet] 1 each PO Q8H PRN PRN PRN Reason: Pain Carvedilol 12.5 mg [Coreg 12.5 mg] 25 mg PO BID HydrALAzine HCL 25 MG TAB [Apresoline 25 MG TABLET] 25 mg PO TID predniSONE [Prednisone] 5 mg PO BID Losartan Potassium 25 mg PO DAILY Levocetirizine Dihydrochloride [Allergy Relief] 5 mg PO DAILY PANTOPRAZOLE 40 mg Tablet [Protonix 40MG Tablet] 40 mg PO QAM Famotidine 20 mg [Pepcid 20 MG] 20 mg PO BID Amlodipine Besylate [Norvasc] 2.5 mg PO BID Brimonidine Tartrate [Alphagan P] 1 drop OP BID Polyethylene Glycol 3350 17 gm [Miralax Powder 17GM PACKET] 17 gm PO DAILY Acetaminophen [Tylenol] 650 mg PO Q4HPRN PRN PRN Reason: Pain Sennosides/Docusate Sodium [Senna-S 8.6-50 mg Tablet] 1 each PO HS Instructions: Pulmonary Embolism (Blood Clot in the Lungs), Deep Vein Thrombosis (Blood Clots in the Legs) (DC) Follow up with: RAUL SINGER [ACTIVE STAFF] - 09/04/20 3:00 pm CONRADO VILLALTA MD [Primary Care Provider] - 09/05/20 2:15 pm Forms: Discharge Instructions
== END 2020-08-29 13:00 | disposition home or self-care (01) ==
LOC: ED 07:37 → MED SURG 13:00
PROVIDERS: ADMIT General Practice; ATTEND General Practice
DX: I26.99 Other pulmonary embolism without acute cor pulmonale (principal); I10 Essential (primary) hypertension; E78.5 Hyperlipidemia, unspecified; R77.8 Other specified abnormalities of plasma proteins; Z79.899 Other long term (current) drug therapy; Z86.711 Personal history of pulmonary embolism; Z20.828 Contact with and (suspected) exposure to other viral communicable diseases
CPT/HCPCS: 0241U; 36000; 36415; 71045; 71260; 80053; 80061; 81001; 82378; 83605; 83721; 83735; 83880; 84484; 85025; 85027; 85379; 86301; 86769; 87040; 87077; 87086; 87186; 87400; 93005; 93041; 93268; 93970; 94150; 94640; 94760; 96374; 97161; 97530; 99285; 99291; G0378; J2930; A9270-GY

== ENCOUNTER 2021-03-27 12:10 | Observation (INO) | payer MEDICARE, OTHER ==
[2021-03-27 12:32] LABS: Absolute Neutrophil Ct (ANC) 7.35 (1.4-6.9); BASOPHIL % 0.2 % (0.0-0.4); Basophil (Absolute #) 0.02 (0-0.4); Eosinophil % 1.2 % (0.00-5.0); Eosinophil (Absolute #) 0.12 (0-0.5); Hematocrit 39.4 % (35-47); Hemoglobin 12.8 gm/dl (12.0-16.0); Lymphocyte (Absolute #) 1.67 (1.0-4.6); Lymphocytes % 17.1 % (24.0-44.0); Mean Cell Volume 104.2 fl (78-100); Mean Corpuscular Hemoglobin 33.9 pg (26-32); Mean Corpuscular Hgb Concent. 32.5 g/dl (32-36); Monocyte (Absolute #) 0.59 (0.0-1.3); Monocytes % 6.1 % (0.0-12.0); Neutrophil % 75.4 % (36.0-66.0); Platelet Count 254 K/mm3 (150-450); Red Blood Count 3.78 M/mm3 (4.1-5.4); Red Cell Distribution Width 14.1 % (11.5-14.0); White Blood Count 9.8 K/mm3 (4.0-10.5)
[2021-03-27 12:38] LABS: ALBUMIN 4.4 g/dL (3.5-5.0); ANION GAP 14.5 MEQ/L (5-15); BILIRUBIN,TOTAL 0.6 mg/dL (0.2-1.3); Calcium 10.4 mg/dL (8.4-10.2); Creatinine 1 1.27 mg/dL (0.52-1.04); EST GLOMERULAR FILTRATION RATE 42.2 ML/MIN; Potassium 3.5 mmol/L (3.5-5.1); Total Protein 7.1 g/dL (6.3-8.2)
[2021-03-27] MEDS ORDERED: SUBLIMAZE 100 MCG/2 ML IV ONE (12:45)
[2021-03-27] MEDS ORDERED: Zofran 4 MG/2 ML VIAL IV ONE (12:45)
--- NOTE | 2021-03-27 12:51 | ERPHSYRPT ---
- History of Present Illness Historian: patient, EMS Exam Limitations: no limitations Patient Subjective Stated Complaint: pt arrived per [facility]bluance for abd pain for a couple days now, she has had some vomiting and loose stools, has hx of diverticuli Triage Nursing Assessment: pt alert, resp easy, skin w/d/p. face mask in place abd soft but tender Physician History: 89 yo wf w LLQ pain x 1 day which is 8/10, sharp, and feels like previous epis odes of diverticulitis. She has had N/V x1 and mild diarrhea. Pt denies melena/hematochezia/hematemesis/dysuria/hematuria/fever/cough/chest pain/dyspnea. Timing/Duration: yesterday Activities at Onset: rest Quality: sharpness Abdominal Pain Onset Location: LLQ Pain Radiation: no radiation Severity of Pain-Max: severe Severity of Pain-Current: severe Modifying Factors: Worsens With: analgesics, antacids, breathing, coughing, defecating, eating, exercise, lying down, movement, palpation, rest, urinating, vomiting, position, walking Associated Symptoms: diarrhea, nausea, vomiting, No back, No chest pain, No diaphoresis, No fever/chills, No fatigue, No headache, No heartburn, No loss of appetite, No neck pain, No rash, No shortness of breath, No syncope, No weakness Previous symptoms: same symptoms as today Allergies/Adverse Reactions: codeine [Codeine] Allergy (Mild, Verified 03/27/21 12:19) Rash Penicillins Allergy (Unknown, Verified 03/27/21 12:19) RASH/UPSET STOMACH Sulfa (Sulfonamide Antibiotics) [Sulfa(Sulfonamide Antibiotics)] Allergy (Unknown, Verified 03/27/21 12:19) Rash cephalexin [From Keflex] Allergy (Verified 03/27/21 12:19) ciprofloxacin [From Cipro] Allergy (Verified 03/27/21 12:19) metronidazole [From Flagyl] Adverse Reaction (Verified 03/27/21 12:19) Nausea and Vomiting Home Medications: Allopurinol 100 mg [Zyloprim 100 mg] 100 mg PO DAILY 04/09/17 [History] Carvedilol 12.5 mg [Coreg 12.5 mg] 25 mg PO BID 04/09/17 [History] HydrALAzine HCL 25 MG TAB [Apresoline 25 MG TABLET] 25 mg PO TID 04/09/17 [History] Hydrocodone Bit/Acetaminophen [[place] 7.5-325 Tablet] 1 each PO Q8H PRN PRN 04/09/17 [History] Simvastatin 20Mg [Zocor 20Mg] 20 mg PO HS 04/09/17 [History] predniSONE [Prednisone] 7.5 mg PO BID 03/08/18 [History] Amlodipine Besylate [Norvasc] 2.5 mg PO BID 08/27/20 [History] Brimonidine Tartrate [Alphagan P] 1 drop OP BID 08/27/20 [History] Famotidine 20 mg [Pepcid 20 MG] 20 mg PO BID 08/27/20 [History] Levocetirizine Dihydrochloride [Allergy Relief] 5 mg PO EVENING MEAL 08/27/20 [History] PANTOPRAZOLE 40 mg Tablet [Protonix 40MG Tablet] 40 mg PO DAILY 08/27/20 [History] Apixaban [Eliquis 2.5 mg Tablet] 2.5 mg PO BID 03/27/21 [History] Aspirin EC 81 mg [Ecotrin 81 mg] 81 mg PO DAILY 03/27/21 [History] Furosemide 40 mg [Lasix 40 MG] 40 mg PO DAILY 03/27/21 [History] Vits W-Ca,Fe,FA(<1Mg) [] 1 each PO DAILY 03/27/21 [History] Hx Tetanus, Diphtheria Vaccination/Date Given: Yes Hx Influenza Vaccination/Date Given: Yes Hx Pneumococcal Vaccination/Date Given: Yes Immunizations Up to Date: Yes Travel Risk - International Travel Have you traveled outside of the country in past 3 weeks: No - Coronavirus Screening Are you exhibiting any of the following symptoms?: No - Vaccine Status Have you recieved a Covid-19 vaccination: Yes Import 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 - Review of Systems Constitutional: No Symptoms Eyes: No Symptoms Ears, Nose, & Throat: No Symptoms Respiratory: No Symptoms Cardiac: No Symptoms Abdominal/Gastrointestinal: No Symptoms, Abdominal Pain, Nausea, Vomiting, Diarrhea Genitourinary Symptoms: No Symptoms Musculoskeletal: No Symptoms Skin: No Symptoms Neurological: No Symptoms Psychological: No Symptoms Endocrine: No Symptoms Hematologic/Lymphatic: No Symptoms Immunological/Allergic: No Symptoms - Past Medical History Pertinent Past Medical History: Yes Neurological History: No Pertinent History ENT History: No Pertinent History Cardiac History: Hypertension Respiratory History: Pulmonary Embolism Endocrine Medical History: Other Musculoskeletal History: Osteoarthritis, Osteoporosis GI Medical History: Diverticulitis, GERD, Hernia History: Other Psycho-Social History: No Pertinent History Female Reproductive Disorders: No Pertinent History Other Medical History: She has a kidney doctor due to being on HTN medication for a long time. dvt right leg 2020 - Past Surgical History Past Surgical History: Yes Neuro Surgical History: No Pertinent History Cardiac: No Pertinent History Respiratory: No Pertinent History Gastrointestinal: No Pertinent History Genitourinary: No Pertinent History Musculoskeletal: Joint Replacement Female Surgical History: Hysterectomy Other Surgical History: RIGHT HIP REPLACEMENT, BLADDER SLING - Social History Smoking Status: Former smoker Exposure to second hand smoke: No Alcohol Use: None Drug Use: none Patient Lives Alone: No Significant Family History: no pertinent family hx - Female History Hx Last Menstrual Period: psot Hx Now: No - Nursing Vital Signs Nursing Vital Signs: Initial Vital Signs Temperature 7.1 F 03/27/21 12:11 Pulse Rate 87 03/27/21 12:11 Respiratory Rate 16 03/27/21 12:11 Blood Pressure 142/80 03/27/21 12:11 O2 Sat by Pulse Oximetry 94 L 03/27/21 12:11 Pain Scale Pain Intensity 2 Hypertensive - Physical Exam General Appearance: no apparent distress (In pain) Eye Exam: PERRL/EOMI, eyes nml inspection Ears, Nose, Throat Exam: normal ENT inspection, TMs normal, pharynx normal, moist mucous membranes Neck Exam: normal inspection, non-tender, supple, full range of motion, No meningismus, No mass, No Brudzinski, No Kernig's, No carotid bruit Respiratory Exam: normal breath sounds, lungs clear, airway intact, No respiratory distress Cardiovascular Exam: regular rate/rhythm, murmur (2/6 SHANTEL) Gastrointestinal/Abdomen Exam: soft, normal bowel sounds, tenderness (LLQ w guarding/No rebound) Back Exam: normal inspection, normal range of motion, No CVA tenderness, No vertebral tenderness, No rash Extremity Exam: normal inspection, normal range of motion Neurologic Exam: alert, oriented x 3, 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, 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, normal mood/affect, sensation nml, No motor deficits, No sensory deficit Skin Exam: normal color, warm Lymphatic Exam: No adenopathy SpO2 Interpretation: normal SpO2: 94 O2 Delivery: Room Air - Course Nursing assessment & vital signs reviewed: Yes EKG Interpreted by Me: RATE (NSR/LBBB/Prolonged QTc) Ordered Tests: Active Orders 24 hr Category Date Time Status EKG-ER Only STAT Care 03/27/21 12:18 Completed IV Insertion STAT Care 03/27/21 12:20 Completed cath [Cath for Specimen-Straight] STAT Care 03/27/21 14:12 Completed Clear Liquid Diet 03/27/21 Breakfast Active ABDOMEN AND PELVIS W/0 CONTRAS [CT] Stat Exams 03/27/21 13:13 Completed AMYLASE Stat Lab 03/27/21 12:15 Completed CBC W DIFF AM.LAB Lab 03/28/21 04:00 Ordered CBC W DIFF Stat Lab 03/27/21 12:15 Completed CMP AM.LAB Lab 03/28/21 04:00 Ordered CMP Stat Lab 03/27/21 12:15 Completed CULTURE,URINE Stat Lab 03/27/21 14:17 Received LIPASE Stat Lab 03/27/21 12:15 Completed TROPONIN Q3H Lab 03/27/21 12:15 Completed TROPONIN Q3H Lab 03/27/21 14:45 Completed TROPONIN Q3H Lab 03/27/21 18:35 Completed TROPONIN Q3H Lab 03/27/21 21:30 Ordered TROPONIN Q3H Lab 03/28/21 00:30 Ordered UA W/RFX UR CULTURE Stat Lab 03/27/21 14:17 Completed Transfer Order Routine Transfer 03/27/21 Completed Medication Summary Generic Name Dose Route Start Last Admin Trade Name Freq PRN Reason Stop Dose Admin Apixaban 2.5 mg 03/27/21 22:00 Apixaban 2.5 Mg Tablet PO 04/26/21 21:59 BID ARIAN Brimonidine Tartrate 1 ml 03/27/21 22:00 Brimonidine Tartrate 5 Ml Bottle Eye Drops OP 04/26/21 21:59 BID ARIAN Famotidine 20 mg 03/27/21 22:00 Famotidine 20 Mg Tablet PO 04/26/21 21:59 BID ARIAN Fentanyl Citrate 25 mcg 03/27/21 15:52 Fentanyl Citrate 100 Mcg/2 Ml* Vial IV 04/01/21 15:51 Q4H PRN PRN SEVERE PAIN Sodium Chloride 1,000 mls @ 80 mls/hr 03/27/21 16:00 03/27/21 15:58 Sodium Chloride 0.9% 1000 Ml IV 04/26/21 15:59 80 mls/hr .[id number] ARIAN Administration Ondansetron HCl 4 mg 03/27/21 15:47 Ondansetron Hcl 4 Mg/2 Ml Vial IV 04/26/21 15:46 Q6H PRN PRN NAUSEA/VOMITING Pantoprazole Sodium 40 mg 03/28/21 10:00 Pantoprazole 40 Mg Vial IV 04/27/21 09:59 Q24H10 ARIAN Prednisone 7.5 mg 03/27/21 22:00 Prednisone 5 Mg Tablet PO 04/26/21 21:59 BID ARIAN Simvastatin 20 mg 03/27/21 22:00 Simvastatin 20 Mg Tablet PO 04/26/21 21:59 HS [facility] Discontinued Medications Generic Name Dose Route Start Last Admin Trade Name Freq PRN Reason Stop Dose Admin Fentanyl Citrate 25 mcg 03/27/21 12:45 03/27/21 12:56 Fentanyl Citrate 100 Mcg/2 Ml* Vial IV 03/27/21 12:46 25 mcg STAT ONE Administration Fentanyl Citrate Confirm 03/27/21 12:55 Fentanyl Citrate 100 Mcg/2 Ml* Vial Administered 03/27/21 12:56 Dose 100 mcg .ROUTE .STK-MED ONE Ondansetron HCl 4 mg 03/27/21 12:45 03/27/21 12:56 Ondansetron Hcl 4 Mg/2 Ml Vial IV 03/27/21 12:46 4 mg STAT ONE Administration Ondansetron HCl Confirm 03/27/21 12:54 Ondansetron Hcl 4 Mg/2 Ml Vial Administered 03/27/21 12:55 Dose 4 mg .ROUTE .STK-MED ONE Lab/Rad Data: Laboratory Result Diagrams 03/27/21 12:15 03/27/21 12:15 Laboratory Results 03/27/21 03/27/21 03/27/21 Range/Units 16:02 14:45 14:17 WBC (4.0-10.5) K/mm3 RBC (4.1-5.4) M/mm3 Hgb (12.0-16.0) gm/dl Hct (35-47) % MCV (78-100) fl MCH (26-32) pg MCHC (32-36) g/dl RDW (11.5-14.0) % Plt Count (150-450) K/mm3 MPV (7.5-11.0) fl Gran % (36.0-66.0) % Eos # (Auto) (0-0.5) Absolute Lymphs (auto) (1.0-4.6) Absolute Monos (auto) (0.0-1.3) Lymphocytes % (24.0-44.0) % Monocytes % (0.0-12.0) % Eosinophils % (0.00-5.0) % Basophils % (0.0-0.4) % Absolute Granulocytes (1.4-6.9) Basophils # (0-0.4) Sodium (137-145) mmol/L Potassium (3.5-5.1) mmol/L Chloride (98-107) mmol/L Carbon Dioxide (22-30) mmol/L Anion Gap (5-15) MEQ/L BUN (7-17) mg/dL Creatinine (0.52-1.04) mg/dL Estimated GFR ML/MIN Glucose (74-106) mg/dL Calcium (8.4-10.2) mg/dL Total Bilirubin (0.2-1.3) mg/dL AST (14-36) U/L ALT (0-35) U/L Alkaline Phosphatase (38-126) U/L Troponin I 0.024 (0.000-0.034) ng/mL Serum Total Protein (6.3-8.2) g/dL Albumin (3.5-5.0) g/dL Amylase (30-110) U/L Lipase (23-300) U/L Urine Color YELLOW (YELLOW) Urine Appearance CLEAR (CLEAR) Urine pH 7.0 (5-6) Ur Specific [place] 1.019 (1.005-1.025) Urine Protein NEGATIVE (Negative) Urine Ketones NEGATIVE (NEGATIVE) Urine Blood NEGATIVE (0-5) Josemanuel/ul Urine Nitrite NEGATIVE (NEGATIVE) Urine Bilirubin NEGATIVE (NEGATIVE) Urine Urobilinogen NEGATIVE (0-1) mg/dL Ur Leukocyte Esterase NEGATIVE (NEGATIVE) Urine WBC (Auto) 0-2 (0-5) /HPF Urine RBC (Auto) 0-2 (0-2) /HPF U Epithel Cells (Auto) NONE (FEW) /HPF Urine Bacteria (Auto) MANY (NEGATIVE) /HPF Urine Mucus (Auto) SLIGHT (NEGATIVE) /HPF Urine Culture Reflexed YES (NO) Urine Glucose NEGATIVE (NEGATIVE) mg/dL SARS-CoV-2 (PCR) NEGATIVE (NEGATIVE) 03/27/21 03/27/21 03/27/21 Range/Units 12:15 12:15 12:15 WBC 9.8 (4.0-10.5) K/mm3 RBC 3.78 L (4.1-5.4) M/mm3 Hgb 12.8 (12.0-16.0) gm/dl Hct 39.4 (35-47) % MCV 104.2 H (78-100) fl MCH 33.9 H (26-32) pg MCHC 32.5 (32-36) g/dl RDW 14.1 H (11.5-14.0) % Plt Count 254 (150-450) K/mm3 MPV 10.0 (7.5-11.0) fl Gran % 75.4 H (36.0-66.0) % Eos # (Auto) 0.12 (0-0.5) Absolute Lymphs (auto) 1.67 (1.0-4.6) Absolute Monos (auto) 0.59 (0.0-1.3) Lymphocytes % 17.1 L (24.0-44.0) % Monocytes % 6.1 (0.0-12.0) % Eosinophils % 1.2 (0.00-5.0) % Basophils % 0.2 (0.0-0.4) % Absolute Granulocytes 7.35 H (1.4-6.9) Basophils # 0.02 (0-0.4) Sodium 144 (137-145) mmol/L Potassium 3.5 (3.5-5.1) mmol/L Chloride 98 (98-107) mmol/L Carbon Dioxide 35 H (22-30) mmol/L Anion Gap 14.5 (5-15) MEQ/L BUN 39 H (7-17) mg/dL Creatinine 1.27 H (0.52-1.04) mg/dL Estimated GFR 42.2 ML/MIN Glucose 114 H (74-106) mg/dL Calcium 10.4 H (8.4-10.2) mg/dL Total Bilirubin 0.60 (0.2-1.3) mg/dL AST 27 (14-36) U/L ALT 24 (0-35) U/L Alkaline Phosphatase 70 (38-126) U/L Troponin I 0.024 (0.000-0.034) ng/mL Serum Total Protein 7.1 (6.3-8.2) g/dL Albumin 4.4 (3.5-5.0) g/dL Amylase 74 (30-110) U/L Lipase 142 (23-300) U/L Urine Color (YELLOW) Urine Appearance (CLEAR) Urine pH (5-6) Ur Specific [place] (1.005-1.025) Urine Protein (Negative) Urine Ketones (NEGATIVE) Urine Blood (0-5) Josemanuel/ul Urine Nitrite (NEGATIVE) Urine Bilirubin (NEGATIVE) Urine Urobilinogen (0-1) mg/dL Ur Leukocyte Esterase (NEGATIVE) Urine WBC (Auto) (0-5) /HPF Urine RBC (Auto) (0-2) /HPF U Epithel Cells (Auto) (FEW) /HPF Urine Bacteria (Auto) (NEGATIVE) /HPF Urine Mucus (Auto) (NEGATIVE) /HPF Urine Culture Reflexed (NO) Urine Glucose (NEGATIVE) mg/dL SARS-CoV-2 (PCR) (NEGATIVE) - Progress Progress: improved Progress Note: 03/27/21 15:43 25umg IV Fentanyl/4mg IV Zofran w improvement in pain Observation per Dr. Sanz 03/27/21 15:46 Counseled pt/family regarding: lab results, diagnosis, rad results - Departure Departure Disposition: Observation Clinical Impression: Ileus, Acute colitis Condition: Stable Critical Care Time: No
[2021-03-27] MEDS ORDERED: Zofran 4 MG/2 ML VIAL ONE (12:54)
[2021-03-27] MEDS ORDERED: SUBLIMAZE 100 MCG/2 ML ONE (12:55)
--- NOTE | 2021-03-27 14:25 | XRAY ---
Indication: Left abdomen pain, nausea, vomiting, diarrhea. History diverticulitis. Multiple contiguous axial images obtained through the abdomen and pelvis without contrast. Comparison: July 07, 2018. Lung bases again demonstrates bibasilar atelectasis/scarring. No infiltrate or effusion. Heart is now enlarged. Stomach, small bowel, and large bowel loops are now mildly fluid distended throughout with minimal fluid leveling, ileus versus gastroenterocolitis. Stable small descending duodenal diverticulum, sigmoid diverticulosis without diverticulitis, bilateral renal cysts, partial duplication right ureter, hepatic/splenic calcified granulomas, and hysterectomy. No free fluid/air. Remaining liver, gallbladder, pancreas, spleen, adrenal glands, kidneys, ureters, and bladder are unremarkable for noncontrast exam. There remains mild scattered aortoiliac calcifications without AAA. Osseous structures intact again with osteopenia, moderate multilevel degenerative spondylosis, grade 1 L4 spondylolisthesis, and right hip arthroplasty. Impression: 1. New fluid distended stomach, small bowel, and large bowel loops with fluid leveling. Rule out ileus versus gastroenterocolitis. 2. Incidental cardiomegaly, duodenal diverticulum, sigmoid diverticulosis, bilateral renal cysts, partial duplication right ureter, chronic bony findings, and old granulomatous disease.
[2021-03-27 14:39] LABS: Appearance CLEAR (CLEAR); Bacteria MANY /HPF (NEGATIVE); Bilirubin NEGATIVE (NEGATIVE); Blood NEGATIVE Ery/ul (0-5); Glucose NEGATIVE (NEGATIVE); Ketones NEGATIVE (NEGATIVE); Leukocyte Esterase NEGATIVE (NEGATIVE); Mucus SLIGHT /HPF (NEGATIVE); Nitrite NEGATIVE (NEGATIVE); Protein,Urine Dip NEGATIVE (Negative); Specific Gravity 1.019 (1.005-1.025); Urobilinogen NEGATIVE mg/dL (0-1)
[2021-03-27 14:40] LABS: RBC 0-2 /HPF (0-2); WBC 0-2 /HPF (0-5)
[2021-03-27] MEDS ORDERED: Zofran 4 MG/2 ML VIAL IV PRN (15:47)
[2021-03-27] MEDS ORDERED: SUBLIMAZE 100 MCG/2 ML IV PRN (15:52)
[2021-03-27] MEDS: Sodium Chloride 0.9% 1000 ML 1,000 ML IV SCH (15:58)
[2021-03-27] MEDS: DELTASONE 5 MG PO SCH (21:31)
[2021-03-27] MEDS: ZOCOR 20MG PO SCH (21:32)
[2021-03-27] MEDS: Pepcid 20 MG PO SCH (21:32)
[2021-03-27] MEDS: ELIQUIS 2.5 MG TABLET PO SCH (21:32)
[2021-03-27] MEDS ORDERED: Alphagan P 0.15% OP SCH (22:00)
[2021-03-28] MEDS: Sodium Chloride 0.9% 1000 ML 1,000 ML IV SCH ×2 (04:45→19:36)
[2021-03-28 07:00] LABS: Absolute Neutrophil Ct (ANC) 3.86 (1.4-6.9); BASOPHIL % 0.2 % (0.0-0.4); Basophil (Absolute #) 0.01 (0-0.4); Eosinophil % 0.2 % (0.00-5.0); Eosinophil (Absolute #) 0.01 (0-0.5); Hematocrit 35.2 % (35-47); Hemoglobin 10.7 gm/dl (12.0-16.0); Lymphocyte (Absolute #) 0.95 (1.0-4.6); Lymphocytes % 18.3 % (24.0-44.0); Mean Corpuscular Hemoglobin 33.1 pg (26-32); Mean Corpuscular Hgb Concent. 30.4 g/dl (32-36); Mean Platelet Volume 10.1 fl (7.5-11.0); Monocyte (Absolute #) 0.35 (0.0-1.3); Monocytes % 6.8 % (0.0-12.0); Neutrophil % 74.5 % (36.0-66.0); Platelet Count 223 K/mm3 (150-450); Red Blood Count 3.23 M/mm3 (4.1-5.4); Red Cell Distribution Width 14.2 % (11.5-14.0); White Blood Count 5.2 K/mm3 (4.0-10.5)
[2021-03-28 07:15] LABS: ALBUMIN 3.4 g/dL (3.5-5.0); ANION GAP 11.4 MEQ/L (5-15); BILIRUBIN,TOTAL 0.4 mg/dL (0.2-1.3); Calcium 9.1 mg/dL (8.4-10.2); EST GLOMERULAR FILTRATION RATE 55.6 ML/MIN; Potassium 3.5 mmol/L (3.5-5.1); Total Protein 5.6 g/dL (6.3-8.2)
--- NOTE | 2021-03-28 08:47 | PCM.HP ---
History of Present Illness - Chief Complaint Chief Complaint: Ileus/Colitis History of Present Illness: is a 89 year old female admitted with vomiting and diarrhea, found to have ileus vs enteritis on ct, since admission nausea and vomiting and diarrhea have totally resolved, she is tolerating clears and feels a lot better today, denies any pain in her abdomen. - Review of Systems Constitutional: No Fever, No Chills Ears, Nose, & Throat: No Symptoms Respiratory: No Cough, No Short Of Breath Cardiac: No Chest Pain, No Edema, No Syncope Abdominal/Gastrointestinal: Nausea, Vomiting, Diarrhea, No Abdominal Pain Genitourinary Symptoms: No Dysuria All Other Systems: Reviewed and Negative Medications & Allergies Home Medications: Home Medication List Allopurinol 100 mg [Zyloprim 100 mg] 100 mg PO DAILY 04/09/17 [History Confirmed 03/27/21] Carvedilol 12.5 mg [Coreg 12.5 mg] 25 mg PO BID 04/09/17 [History Confirmed 03/27/21] HydrALAzine HCL 25 MG TAB [Apresoline 25 MG TABLET] 25 mg PO TID 04/09/17 [History Confirmed 03/27/21] Hydrocodone Bit/Acetaminophen [[place] 7.5-325 Tablet] 1 each PO Q8H PRN PRN 04/09/17 [History Confirmed 03/27/21] Simvastatin 20Mg [Zocor 20Mg] 20 mg PO HS 04/09/17 [History Confirmed 03/27/21] predniSONE [Prednisone] 7.5 mg PO BID 03/08/18 [History Confirmed 03/27/21] Amlodipine Besylate [Norvasc] 2.5 mg PO BID 08/27/20 [History Confirmed 03/27/21] Brimonidine Tartrate [Alphagan P] 1 drop OP BID 08/27/20 [History Confirmed 03/27/21] Famotidine 20 mg [Pepcid 20 MG] 20 mg PO BID 08/27/20 [History Confirmed 03/27/21] Levocetirizine Dihydrochloride [Allergy Relief] 5 mg PO EVENING MEAL 08/27/20 [History Confirmed 03/27/21] PANTOPRAZOLE 40 mg Tablet [Protonix 40MG Tablet] 40 mg PO DAILY 08/27/20 [History Confirmed 03/27/21] Apixaban [Eliquis 2.5 mg Tablet] 2.5 mg PO BID 03/27/21 [History Confirmed 03/27/21] Aspirin EC 81 mg [Ecotrin 81 mg] 81 mg PO DAILY 03/27/21 [History Confirmed 03/27/21] Furosemide 40 mg [Lasix 40 MG] 40 mg PO DAILY 03/27/21 [History Confirmed 03/27/21] Vits W-Ca,Fe,FA(<1Mg) [] 1 each PO DAILY 03/27/21 [History Confirmed 03/27/21] Allergies/Adverse Reactions: Allergies Allergy/AdvReac Type Severity Reaction Status Date / Time codeine [Codeine] Allergy Mild Rash Verified 03/27/21 12:19 Penicillins Allergy Unknown RASH/UPSET Verified 03/27/21 12:19 STOMACH Sulfa (Sulfonamide Allergy Unknown Rash Verified 03/27/21 12:19 Antibiotics) [Sulfa(Sulfonamide Antibiotics)] cephalexin [From Keflex] Allergy Verified 03/27/21 12:19 ciprofloxacin [From Cipro] Allergy Verified 03/27/21 12:19 metronidazole [From Flagyl] AdvReac Nausea and Verified 03/27/21 12:19 Vomiting - Past Medical History Past Medical History: Yes Neurological History: No Pertinent History ENT History: No Pertinent History Cardiac History: Hypertension Respiratory History: Pulmonary Embolism Endocrine Medical History: Other Musculoskelatal History: Osteoarthritis, Osteoporosis GI Medical History: Diverticulitis, GERD, Hernia History: Other Pyscho-Social History: No Pertinent History Reproductive Disorders: No Pertinent History Comment: She has a kidney doctor due to being on HTN medication for a long time. dvt right leg 2020 - Female History Hx Last Menstrual Period: psot Are you now?: No - Past Surgical History Past Surgical History: Yes Neuro Surgical History: No Pertinent History Cardiac History: No Pertinent History Respiratory Surgery: No Pertinent History GI Surgical History: No Pertinent History Genitourinary Surgical Hx: No Pertinent History Musculskeletal Surgical Hx: Joint Replacement Female Surgical History: Hysterectomy Other Surgical History: RIGHT HIP REPLACEMENT, BLADDER SLING - Social History Smoking Status: Former smoker Exposure to second hand smoke: No Alcohol: None Drug Use: none Significant Family History: no pertinent family hx - Physical Exam Vital Signs: Vital Signs - 24 hr Temp Pulse Resp BP Pulse Ox 03/28/21 08:00 98.3 F 83 20 103/54 95 03/28/21 04:00 98.3 F 85 18 117/63 96 03/27/21 23:10 98.1 F 93 H 20 113/56 92 L 03/27/21 21:13 94 L 03/27/21 19:58 97.8 F 88 17 91/46 93 L 03/27/21 17:57 99.9 F 93 H 20 104/52 95 03/27/21 17:00 80 16 127/82 95 03/27/21 16:00 88 16 115/65 96 03/27/21 15:09 82 18 100/50 97 03/27/21 14:00 92 H 18 142/79 96 03/27/21 13:00 84 16 119/70 96 03/27/21 12:11 7.1 F 87 16 142/80 94 L General Appearance: no apparent distress, obese Neurologic Exam: alert, oriented x 3 Respiratory Exam: normal breath sounds, lungs clear, No respiratory distress Cardiovascular Exam: regular rate/rhythm, normal heart sounds, normal peripheral pulses Gastrointestinal/Abdomen Exam: soft, normal bowel sounds, No tenderness, No mass Extremity Exam: normal inspection, normal range of motion, pelvis stable Skin Exam: normal color, warm, dry, No rash Results - Labs Lab/Micro Results: Lab Results-Last 24 Hours 03/27/21 03/27/21 03/27/21 Range/Units 12:15 12:15 12:15 WBC 9.8 (4.0-10.5) K/mm3 RBC 3.78 L (4.1-5.4) M/mm3 Hgb 12.8 (12.0-16.0) gm/dl Hct 39.4 (35-47) % MCV 104.2 H (78-100) fl MCH 33.9 H (26-32) pg MCHC 32.5 (32-36) g/dl RDW 14.1 H (11.5-14.0) % Plt Count 254 (150-450) K/mm3 MPV 10.0 (7.5-11.0) fl Gran % 75.4 H (36.0-66.0) % Eos # (Auto) 0.12 (0-0.5) Absolute Lymphs (auto) 1.67 (1.0-4.6) Absolute Monos (auto) 0.59 (0.0-1.3) Lymphocytes % 17.1 L (24.0-44.0) % Monocytes % 6.1 (0.0-12.0) % Eosinophils % 1.2 (0.00-5.0) % Basophils % 0.2 (0.0-0.4) % Absolute Granulocytes 7.35 H (1.4-6.9) Basophils # 0.02 (0-0.4) Sodium 144 (137-145) mmol/L Potassium 3.5 (3.5-5.1) mmol/L Chloride 98 (98-107) mmol/L Carbon Dioxide 35 H (22-30) mmol/L Anion Gap 14.5 (5-15) MEQ/L BUN 39 H (7-17) mg/dL Creatinine 1.27 H (0.52-1.04) mg/dL Estimated GFR 42.2 ML/MIN Glucose 114 H (74-106) mg/dL Calcium 10.4 H (8.4-10.2) mg/dL Total Bilirubin 0.60 (0.2-1.3) mg/dL AST 27 (14-36) U/L ALT 24 (0-35) U/L Alkaline Phosphatase 70 (38-126) U/L Troponin I 0.024 (0.000-0.034) ng/mL Serum Total Protein 7.1 (6.3-8.2) g/dL Albumin 4.4 (3.5-5.0) g/dL Amylase 74 (30-110) U/L Lipase 142 (23-300) U/L Urine Color (YELLOW) Urine Appearance (CLEAR) Urine pH (5-6) Ur Specific Calion (1.005-1.025) Urine Protein (Negative) Urine Ketones (NEGATIVE) Urine Blood (0-5) Josemanuel/ul Urine Nitrite (NEGATIVE) Urine Bilirubin (NEGATIVE) Urine Urobilinogen (0-1) mg/dL Ur Leukocyte Esterase (NEGATIVE) Urine WBC (Auto) (0-5) /HPF Urine RBC (Auto) (0-2) /HPF U Epithel Cells (Auto) (FEW) /HPF Urine Bacteria (Auto) (NEGATIVE) /HPF Urine Mucus (Auto) (NEGATIVE) /HPF Urine Culture Reflexed (NO) Urine Glucose (NEGATIVE) mg/dL SARS-CoV-2 (PCR) (NEGATIVE) 03/27/21 03/27/21 03/27/21 Range/Units 14:17 14:45 16:02 WBC (4.0-10.5) K/mm3 RBC (4.1-5.4) M/mm3 Hgb (12.0-16.0) gm/dl Hct (35-47) % MCV (78-100) fl MCH (26-32) pg MCHC (32-36) g/dl RDW (11.5-14.0) % Plt Count (150-450) K/mm3 MPV (7.5-11.0) fl Gran % (36.0-66.0) % Eos # (Auto) (0-0.5) Absolute Lymphs (auto) (1.0-4.6) Absolute Monos (auto) (0.0-1.3) Lymphocytes % (24.0-44.0) % Monocytes % (0.0-12.0) % Eosinophils % (0.00-5.0) % Basophils % (0.0-0.4) % Absolute Granulocytes (1.4-6.9) Basophils # (0-0.4) Sodium (137-145) mmol/L Potassium (3.5-5.1) mmol/L Chloride (98-107) mmol/L Carbon Dioxide (22-30) mmol/L Anion Gap (5-15) MEQ/L BUN (7-17) mg/dL Creatinine (0.52-1.04) mg/dL Estimated GFR ML/MIN Glucose (74-106) mg/dL Calcium (8.4-10.2) mg/dL Total Bilirubin (0.2-1.3) mg/dL AST (14-36) U/L ALT (0-35) U/L Alkaline Phosphatase (38-126) U/L Troponin I 0.024 (0.000-0.034) ng/mL Serum Total Protein (6.3-8.2) g/dL Albumin (3.5-5.0) g/dL Amylase (30-110) U/L Lipase (23-300) U/L Urine Color YELLOW (YELLOW) Urine Appearance CLEAR (CLEAR) Urine pH 7.0 (5-6) Ur Specific Calion 1.019 (1.005-1.025) Urine Protein NEGATIVE (Negative) Urine Ketones NEGATIVE (NEGATIVE) Urine Blood NEGATIVE (0-5) Josemanuel/ul Urine Nitrite NEGATIVE (NEGATIVE) Urine Bilirubin NEGATIVE (NEGATIVE) Urine Urobilinogen NEGATIVE (0-1) mg/dL Ur Leukocyte Esterase NEGATIVE (NEGATIVE) Urine WBC (Auto) 0-2 (0-5) /HPF Urine RBC (Auto) 0-2 (0-2) /HPF U Epithel Cells (Auto) NONE (FEW) /HPF Urine Bacteria (Auto) MANY (NEGATIVE) /HPF Urine Mucus (Auto) SLIGHT (NEGATIVE) /HPF Urine Culture Reflexed YES (NO) Urine Glucose NEGATIVE (NEGATIVE) mg/dL SARS-CoV-2 (PCR) NEGATIVE (NEGATIVE) 03/27/21 03/27/21 03/28/21 Range/Units 18:35 21:30 06:13 WBC 5.2 (4.0-10.5) K/mm3 RBC 3.23 L (4.1-5.4) M/mm3 Hgb 10.7 L (12.0-16.0) gm/dl Hct 35.2 (35-47) % MCV 109.0 H (78-100) fl MCH 33.1 H (26-32) pg MCHC 30.4 L (32-36) g/dl RDW 14.2 H (11.5-14.0) % Plt Count 223 (150-450) K/mm3 MPV 10.1 (7.5-11.0) fl Gran % 74.5 H (36.0-66.0) % Eos # (Auto) 0.01 (0-0.5) Absolute Lymphs (auto) 0.95 L (1.0-4.6) Absolute Monos (auto) 0.35 (0.0-1.3) Lymphocytes % 18.3 L (24.0-44.0) % Monocytes % 6.8 (0.0-12.0) % Eosinophils % 0.2 (0.00-5.0) % Basophils % 0.2 (0.0-0.4) % Absolute Granulocytes 3.86 (1.4-6.9) Basophils # 0.01 (0-0.4) Sodium (137-145) mmol/L Potassium (3.5-5.1) mmol/L Chloride (98-107) mmol/L Carbon Dioxide (22-30) mmol/L Anion Gap (5-15) MEQ/L BUN (7-17) mg/dL Creatinine (0.52-1.04) mg/dL Estimated GFR ML/MIN Glucose (74-106) mg/dL Calcium (8.4-10.2) mg/dL Total Bilirubin (0.2-1.3) mg/dL AST (14-36) U/L ALT (0-35) U/L Alkaline Phosphatase (38-126) U/L Troponin I 0.031 0.040 H* (0.000-0.034) ng/mL Serum Total Protein (6.3-8.2) g/dL Albumin (3.5-5.0) g/dL Amylase (30-110) U/L Lipase (23-300) U/L Urine Color (YELLOW) Urine Appearance (CLEAR) Urine pH (5-6) Ur Specific Calion (1.005-1.025) Urine Protein (Negative) Urine Ketones (NEGATIVE) Urine Blood (0-5) Josemanuel/ul Urine Nitrite (NEGATIVE) Urine Bilirubin (NEGATIVE) Urine Urobilinogen (0-1) mg/dL Ur Leukocyte Esterase (NEGATIVE) Urine WBC (Auto) (0-5) /HPF Urine RBC (Auto) (0-2) /HPF U Epithel Cells (Auto) (FEW) /HPF Urine Bacteria (Auto) (NEGATIVE) /HPF Urine Mucus (Auto) (NEGATIVE) /HPF Urine Culture Reflexed (NO) Urine Glucose (NEGATIVE) mg/dL SARS-CoV-2 (PCR) (NEGATIVE) 03/28/21 Range/Units 06:13 WBC (4.0-10.5) K/mm3 RBC (4.1-5.4) M/mm3 Hgb (12.0-16.0) gm/dl Hct (35-47) % MCV (78-100) fl MCH (26-32) pg MCHC (32-36) g/dl RDW (11.5-14.0) % Plt Count (150-450) K/mm3 MPV (7.5-11.0) fl Gran % (36.0-66.0) % Eos # (Auto) (0-0.5) Absolute Lymphs (auto) (1.0-4.6) Absolute Monos (auto) (0.0-1.3) Lymphocytes % (24.0-44.0) % Monocytes % (0.0-12.0) % Eosinophils % (0.00-5.0) % Basophils % (0.0-0.4) % Absolute Granulocytes (1.4-6.9) Basophils # (0-0.4) Sodium 144 (137-145) mmol/L Potassium 3.5 (3.5-5.1) mmol/L Chloride 104 (98-107) mmol/L Carbon Dioxide 32 H (22-30) mmol/L Anion Gap 11.4 (5-15) MEQ/L BUN 34 H (7-17) mg/dL Creatinine 1.00 (0.52-1.04) mg/dL Estimated GFR 55.6 ML/MIN Glucose 102 (74-106) mg/dL Calcium 9.1 (8.4-10.2) mg/dL Total Bilirubin 0.40 (0.2-1.3) mg/dL AST 28 (14-36) U/L ALT 19 (0-35) U/L Alkaline Phosphatase 50 (38-126) U/L Troponin I (0.000-0.034) ng/mL Serum Total Protein 5.6 L (6.3-8.2) g/dL Albumin 3.4 L (3.5-5.0) g/dL Amylase (30-110) U/L Lipase (23-300) U/L Urine Color (YELLOW) Urine Appearance (CLEAR) Urine pH (5-6) Ur Specific Calion (1.005-1.025) Urine Protein (Negative) Urine Ketones (NEGATIVE) Urine Blood (0-5) Josemanuel/ul Urine Nitrite (NEGATIVE) Urine Bilirubin (NEGATIVE) Urine Urobilinogen (0-1) mg/dL Ur Leukocyte Esterase (NEGATIVE) Urine WBC (Auto) (0-5) /HPF Urine RBC (Auto) (0-2) /HPF U Epithel Cells (Auto) (FEW) /HPF Urine Bacteria (Auto) (NEGATIVE) /HPF Urine Mucus (Auto) (NEGATIVE) /HPF Urine Culture Reflexed (NO) Urine Glucose (NEGATIVE) mg/dL SARS-CoV-2 (PCR) (NEGATIVE) - Radiology Impressions Radiology Exams & Impressions: Radiology Procedures Category Date Time Status ABDOMEN AND PELVIS W/0 CONTRAS [CT] Stat Exams 03/27/21 13:13 Completed Assessment/Plan (1) Gastroenteritis Current Visit: Yes Status: Acute Assessment & Plan: history and exam as well as ct review points to acute gastroenteritis, likely viral etiology. resolved quickly, advance diet and if tolerates may go home later today. Code(s): K52.9 - NONINFECTIVE GASTROENTERITIS AND COLITIS, UNSPECIFIED (2) Ileus Current Visit: Yes Status: Acute Code(s): K56.7 - ILEUS, UNSPECIFIED
[2021-03-28] MEDS ORDERED: PROTONIX 40 MG IV IV SCH (10:00)
[2021-03-28] MEDS: Pepcid 20 MG PO SCH ×2 (10:31→21:22)
[2021-03-28] MEDS: ELIQUIS 2.5 MG TABLET PO SCH ×2 (10:32→21:22)
[2021-03-28] MEDS: DELTASONE 5 MG PO SCH ×2 (10:32→21:22)
[2021-03-28] MEDS: NORVASC 5 MG PO SCH ×2 (12:50→21:34)
[2021-03-28] MEDS: THERAGRAN MULTIVITAMIN PO SCH (12:51)
[2021-03-28] MEDS: ECOTRIN 81 MG PO SCH (12:52)
[2021-03-28] MEDS: Lasix 40 MG PO SCH (12:53)
[2021-03-28] MEDS: COREG 12.5 MG PO SCH ×2 (12:53→21:32)
[2021-03-28] MEDS: Alphagan P 0.15% OP SCH ×2 (12:54→21:22)
[2021-03-28] MEDS: ZYLOPRIM 100 MG PO SCH (12:54)
[2021-03-28] MEDS ORDERED: Protonix 40MG Tablet PO SCH (13:00)
[2021-03-28] MEDS ORDERED: ELIQUIS 2.5 MG TABLET PO SCH (13:00)
[2021-03-28] MEDS ORDERED: DELTASONE 5 MG PO SCH (13:00)
[2021-03-28] MEDS: Apresoline 25 MG TABLET PO SCH ×2 (16:15→21:33)
[2021-03-28] MEDS ORDERED: NON-FORMULARY ITEM (Levocetirizine Dihydrochloride [Allergy Relief] 5 MG Tablet) PO SCH (18:00)
[2021-03-28] MEDS ORDERED: CLARITIN 10 MG PO SCH (18:00)
[2021-03-28 20:33] VITALS: O2SAT 93
[2021-03-28] MEDS: ZOCOR 20MG PO SCH (21:21)
[2021-03-28] MEDS ORDERED: NON-FORMULARY ITEM (Amlodipine Besylate [Norvasc] 2.5 MG Tablet) PO SCH (22:00)
[2021-03-28] MEDS: NORCO 7.5/325 MG TAB PO PRN (23:43)
[2021-03-29 08:01] VITALS: BP 131/71; PULSE 83
[2021-03-29] MEDS: Apresoline 25 MG TABLET PO SCH (08:07)
[2021-03-29] MEDS: ECOTRIN 81 MG PO SCH (08:07)
[2021-03-29] MEDS: THERAGRAN MULTIVITAMIN PO SCH (08:07)
[2021-03-29] MEDS: DELTASONE 5 MG PO SCH (08:07)
[2021-03-29] MEDS: Lasix 40 MG PO SCH (08:07)
[2021-03-29] MEDS: Pepcid 20 MG PO SCH (08:07)
[2021-03-29] MEDS: COREG 12.5 MG PO SCH (08:07)
[2021-03-29] MEDS: ZYLOPRIM 100 MG PO SCH (08:08)
[2021-03-29] MEDS: ELIQUIS 2.5 MG TABLET PO SCH (08:08)
[2021-03-29] MEDS: Alphagan P 0.15% OP SCH (08:09)
[2021-03-29] MEDS: NORVASC 5 MG PO SCH (08:09)
[2021-03-29] MEDS: NORCO 7.5/325 MG TAB PO PRN (08:55)
--- NOTE | 2021-03-29 09:44 | PCM.DS ---
Discharge Summary Date of Admission: 03/27/21 17:34 Admitting Physician: REBECCA CEJA Primary Care Provider: PAWAN,CONRADO Allergies Allergies codeine [Codeine] Allergy (Mild, Verified 03/27/21 12:19) Rash Penicillins Allergy (Unknown, Verified 03/27/21 12:19) RASH/UPSET STOMACH Sulfa (Sulfonamide Antibiotics) [Sulfa(Sulfonamide Antibiotics)] Allergy (Unknown, Verified 03/27/21 12:19) Rash cephalexin [From Keflex] Allergy (Verified 03/27/21 12:19) ciprofloxacin [From Cipro] Allergy (Verified 03/27/21 12:19) metronidazole [From Flagyl] Adverse Reaction (Verified 03/27/21 12:19) Nausea and Vomiting Hospital Summary - Hospital Course Hospital Course: patient had some loose stool yesterday so discharge was held, she is still having some loose stool but not significantly frequent. she is tolerating po, no abd pain. overall feels much better. - Vitals & Intake/Output Vital Signs: Vital Signs Temperature 97.5 F 03/29/21 08:00 Pulse Rate 83 03/29/21 08:00 Respiratory Rate 18 03/29/21 08:00 Blood Pressure 131/71 03/29/21 08:00 O2 Sat by Pulse Oximetry 93 L 03/29/21 08:00 Intake & Output: Intake & Output 03/26/21 03/27/21 03/28/21 03/29/21 11:59 11:59 11:59 11:59 Intake Total 1585 3124 Output Total 200 Balance 1385 3124 Weight 76.4 kg - Lab Result Diagrams: 03/28/21 06:13 03/28/21 06:13 - Radiology Exams Ordered Rad Exams-Entire Visit: Radiology Procedures Category Date Time Status ABDOMEN AND PELVIS W/0 CONTRAS [CT] Stat Exams 03/27/21 13:13 Completed Discharge Exam General Appearance: no apparent distress Respiratory Exam: normal breath sounds, lungs clear, No respiratory distress Cardiovascular Exam: regular rate/rhythm, normal heart sounds Gastrointestinal/Abdomen Exam: soft, No tenderness, No mass Extremity Exam: normal inspection, normal range of motion Skin Exam: normal color, warm, dry Final Diagnosis/Problem List - Final Discharge Diagnosis/Problem (1) Gastroenteritis Current Visit: Yes Status: Acute Assessment & Plan: no vomiting, infrequent loose stools and tolerating po, recommend bland diet. Code(s): K52.9 - NONINFECTIVE GASTROENTERITIS AND COLITIS, UNSPECIFIED (2) Ileus Current Visit: Yes Status: Acute Code(s): K56.7 - ILEUS, UNSPECIFIED - Discharge Disposition: Home, Self-Care Condition: Stable Prescriptions: Continue Allopurinol 100 mg [Zyloprim 100 mg] 100 mg PO DAILY Simvastatin 20Mg [Zocor 20Mg] 20 mg PO HS Hydrocodone Bit/Acetaminophen [[place] 7.5-325 Tablet] 1 each PO Q8H PRN PRN PRN Reason: Pain Carvedilol 12.5 mg [Coreg 12.5 mg] 25 mg PO BID HydrALAzine HCL 25 MG TAB [Apresoline 25 MG TABLET] 25 mg PO TID predniSONE [Prednisone] 7.5 mg PO BID Levocetirizine Dihydrochloride [Allergy Relief] 5 mg PO EVENING MEAL PANTOPRAZOLE 40 mg Tablet [Protonix 40MG Tablet] 40 mg PO DAILY Famotidine 20 mg [Pepcid 20 MG] 20 mg PO BID Amlodipine Besylate [Norvasc] 2.5 mg PO BID Brimonidine Tartrate [Alphagan P] 1 drop OP BID Apixaban [Eliquis 2.5 mg Tablet] 2.5 mg PO BID Furosemide 40 mg [Lasix 40 MG] 40 mg PO DAILY Vits W-Ca,Fe,FA(<1Mg) [] 1 each PO DAILY Instructions: Viral Gastroenteritis Additional Instructions: Please call Dr Luciano's office Tuesday to make a one week followup appointment.
[2021-03-29] MEDS ORDERED: NON-FORMULARY ITEM (Prenatal Vits W-Ca,Fe,Fa(<1mg) [Prenatal] 1 EACH Tablet) PO SCH (10:00)
[2021-03-29] MEDS ORDERED: Protonix 40MG Tablet PO SCH (10:00)
== END 2021-03-29 10:30 | disposition home or self-care (01) ==
LOC: ED 12:10 → MED SURG 17:34
PROVIDERS: ADMIT Family Medicine; ATTEND Family Medicine
DX: K52.9 Noninfective gastroenteritis and colitis, unspecified (principal); K56.7 Ileus, unspecified; R11.2 Nausea with vomiting, unspecified; I10 Essential (primary) hypertension; Z79.899 Other long term (current) drug therapy; Z86.711 Personal history of pulmonary embolism; Z20.822 Contact with and (suspected) exposure to COVID-19
CPT/HCPCS: 36000; 36415; 74176; 80053; 81001; 82150; 83690; 84484; 85025; 87077; 87086; 87186; 93005; 96374; 96375; 99285; G0378; P9612; U0003; J2405; J3010; A9270-GY

== ENCOUNTER 2021-06-17 07:35 | Emergency (ER) | payer MEDICARE, OTHER ==
--- NOTE | 2021-06-17 08:45 | XRAY ---
Indication: Left head injury following fall. Multiple contiguous axial images obtained through the head without contrast. Comparison: April 09, 2017. Again age-appropriate global atrophy. No acute intracranial hemorrhage, abnormal extra-axial fluid collection, or mass effect. Fourth ventricle is midline without hydrocephalus. Vinson-white matter differentiation preserved. Bony calvarium intact. Visualized paranasal sinuses and mastoid air cells are clear. Impression: Continued nonacute senile brain.
--- NOTE | 2021-06-17 08:46 | ERPHSYRPT ---
- History of Present Illness Source: patient, EMS Exam Limitations: no limitations Patient Subjective Stated Complaint: Pt tripped in her new house slippers and landed on her left side injuring her left hip and hit the left side of her head Triage Nursing Assessment: Pt brought by EMS to the ER, hypertensive, hypoxic, rates pain as 3/10 while laying, placed on 2L NC and oxygen went from 88% to 97%, bruising to left knee and left lateral thigh, no rotation or shortening to leg, pt states that the left back of her head also hurts, no visible bruising noted, pt is on blood thinners, pulses normal, skin is edematous, no wounds or bleeding Physician History: 89 yo wf tripped this AM due to new slippers. Pt denies LOC but does have a small scalp contusion. C/T/L-spine pain denied. Pt complains of L hip pain/L thigh pain/L Tib-fib pain. Focal weakness/chest pain/dyspnea are all denied. Occurred: just prior to arrival Reason for Fall: tripped (New slippers) Injuries/Pain Location: head, lower extremity (L hip/thigh/Lower leg) Loss of Consciousness: no loss of consciousness Quality: aching Severity of Pain-Max: moderate Severity of Pain-Current: mild Modifying Factors: Improves With: movement Associated Symptoms (Fall): extremity injury, trouble walking, No abdominal pain, No back pain, No confusion, No chest pain, No dizziness, No headache, No lightheadedness, No muscle spasms, No nausea, No neck pain, No ringing in ears, No seizures, No shortness of breath, No slurred speech, No vomiting Allergies/Adverse Reactions: codeine [Codeine] Allergy (Mild, Verified 06/17/21 07:56) Rash Penicillins Allergy (Unknown, Verified 06/17/21 07:56) RASH/UPSET STOMACH Sulfa (Sulfonamide Antibiotics) [Sulfa(Sulfonamide Antibiotics)] Allergy (Unknown, Verified 06/17/21 07:56) Rash cephalexin [From Keflex] Allergy (Verified 06/17/21 07:56) ciprofloxacin [From Cipro] Allergy (Verified 06/17/21 07:56) metronidazole [From Flagyl] Adverse Reaction (Verified 06/17/21 07:56) Nausea and Vomiting Home Medications: Allopurinol 100 mg [Zyloprim 100 mg] 100 mg PO DAILY 04/09/17 [History] Carvedilol 12.5 mg [Coreg 12.5 mg] 25 mg PO BID 04/09/17 [History] HydrALAzine HCL 25 MG TAB [Apresoline 25 MG TABLET] 25 mg PO TID 04/09/17 [History] Hydrocodone/Acetaminophen [Horton 7.5-325 Tablet] 1 each PO Q8H PRN PRN 04/09/17 [History] Simvastatin 20Mg [Zocor 20Mg] 20 mg PO HS 04/09/17 [History] predniSONE [Prednisone] 7.5 mg PO BID 03/08/18 [History] Amlodipine Besylate [Norvasc] 2.5 mg PO BID 08/27/20 [History] Brimonidine Tartrate [Alphagan P] 1 drop OP BID 08/27/20 [History] Famotidine 20 mg [Pepcid 20 MG] 20 mg PO BID 08/27/20 [History] Levocetirizine Dihydrochloride [Allergy Relief] 5 mg PO EVENING MEAL 08/27/20 [History] PANTOPRAZOLE 40 mg Tablet [Protonix 40MG Tablet] 40 mg PO DAILY 08/27/20 [History] Apixaban [Eliquis 2.5 mg Tablet] 2.5 mg PO BID 03/27/21 [History] Furosemide 40 mg [Lasix 40 MG] 40 mg PO DAILY 03/27/21 [History] Ergocalciferol (Vitamin D2) [Vitamin D2] 50,000 unit PO UD 06/17/21 [History] Hx Tetanus, Diphtheria Vaccination/Date Given: Yes Hx Influenza Vaccination/Date Given: Yes Hx Pneumococcal Vaccination/Date Given: Yes Travel Risk - International Travel Have you traveled outside of the country in past 3 weeks: No - Coronavirus Screening Are you exhibiting any of the following symptoms?: No Close contact with a COVID-19 positive Pt in past 14-21 Days: No - Vaccine Status Have you recieved a Covid-19 vaccination: Yes 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 - Review of Systems Constitutional: No Symptoms Eyes: No Symptoms Ears, Nose, & Throat: No Symptoms Respiratory: No Symptoms Cardiac: No Symptoms Abdominal/Gastrointestinal: No Symptoms Genitourinary Symptoms: No Symptoms Skin: No Symptoms Neurological: No Symptoms Psychological: No Symptoms Endocrine: No Symptoms Hematologic/Lymphatic: No Symptoms Immunological/Allergic: No Symptoms - Past Medical History Pertinent Past Medical History: Yes Neurological History: No Pertinent History ENT History: No Pertinent History Cardiac History: Hypertension Respiratory History: Pulmonary Embolism Endocrine Medical History: Other Musculoskeletal History: Osteoarthritis, Osteoporosis GI Medical History: Diverticulitis, GERD, Hernia History: Other Psycho-Social History: No Pertinent History Female Reproductive Disorders: No Pertinent History Other Medical History: She has a kidney doctor due to being on HTN medication for a long time. dvt right leg 2020 - Past Surgical History Past Surgical History: Yes Neuro Surgical History: No Pertinent History Cardiac: No Pertinent History Respiratory: No Pertinent History Gastrointestinal: No Pertinent History Genitourinary: No Pertinent History Musculoskeletal: Joint Replacement Female Surgical History: Hysterectomy Other Surgical History: RIGHT HIP REPLACEMENT, BLADDER SLING - Social History Smoking Status: Former smoker Exposure to second hand smoke: No Alcohol Use: None Drug Use: none Patient Lives Alone: No Significant Family History: no pertinent family hx - Nursing Vital Signs Nursing Vital Signs: Initial Vital Signs Temperature 97.8 F 06/17/21 07:37 Pulse Rate 92 H 06/17/21 07:37 Blood Pressure 151/83 06/17/21 07:37 O2 Sat by Pulse Oximetry 88 L 06/17/21 07:37 Pain Scale Pain Intensity 4 Hypertensive/low sats - Adan Coma Score Best Eye Response (Adan): (4) open spontaneously Best Verbal Response (Adan): (5) oriented Best Motor Response (Piqua): (6) obeys commands Adan Total: 15 - Physical Exam General Appearance: no apparent distress Head Injury: contusions (Small scalp contusion) Eye Exam: PERRL/EOMI, eyes nml inspection ENT Exam: airway nml, No evidence of ENT injury, No clear fluid (ears), No clear fluid (nose), No hemotympanum Neck Exam: supple, trachea midline, full range of motion (C-spine nttp) Respiratory/Chest Exam: No chest tenderness, No normal breath sounds, No respiratory distress Cardiovascular Exam: normal heart sounds, regular rate/rhythm, No murmur Gastrointestinal Exam: soft, normal bowel sounds Back Exam: normal inspection, normal range of motion, No vertebral tenderness Extremity Exam: other (L hip TTP but no shortening or external rotation/L femur TTP wo deformity/L superior tib-fib TTP) Peripheral Pulses: carotid (R): 2+, carotid (L): 2+ Neurologic Exam: alert, oriented x 3, cooperative, inspector and hand packager II-XII nml as tested, normal mood/affect, sensation nml, No motor deficits, No sensory deficit Skin Exam: normal color, warm SpO2 Interpretation: borderline oxygenation SpO2: 88 O2 Delivery: Room Air - Course Nursing assessment & vital signs reviewed: Yes - Radiology Exams Femur X-ray Interpretation: Discussed w/ radiologist (L femur neg per Rad) Lower Leg X-ray Interpretation: Discussed w/ radiologist (L tib-fib neg per Rad) - CT Exams Pelvis CT Interpretation: Discussed w/radiologist (New L nondisplaced femur subcapital fx) Head CT Interpretation: Discussed w/radiologist (Nothing acute) Ordered Tests: Active Orders 24 hr Category Date Time Status Myles [Catheter-[place] Myles] STAT Care 06/17/21 09:21 Completed FEMUR Stat Exams 06/17/21 Completed HEAD WITHOUT CONTRAST [CT] Stat Exams 06/17/21 07:44 Completed LOWER LEG Stat Exams 06/17/21 07:46 Completed PELVIS WITHOUT CONTRAST [CT] Stat Exams 06/17/21 07:44 Completed Medication Summary Discontinued Medications Generic Name Dose Route Start Last Admin Trade Name Freq PRN Reason Stop Dose Admin Fentanyl Citrate 25 mcg 06/17/21 09:03 06/17/21 09:23 Fentanyl Citrate 100 Mcg/2 Ml* Vial IV 06/17/21 09:04 25 mcg STAT ONE Administration Fentanyl Citrate Confirm 06/17/21 09:20 Fentanyl Citrate 100 Mcg/2 Ml* Vial Administered 06/17/21 09:21 Dose 100 mcg .ROUTE .STK-MED ONE Ondansetron HCl 4 mg 06/17/21 09:03 06/17/21 09:23 Ondansetron Hcl 4 Mg/2 Ml Vial IV 06/17/21 09:04 4 mg STAT ONE Administration Ondansetron HCl Confirm 06/17/21 09:20 Ondansetron Hcl 4 Mg/2 Ml Vial Administered 06/17/21 09:21 Dose 4 mg .ROUTE .STK-MED ONE - Progress Progress: improved Progress Note: 06/17/21 09:49 25umg IV Fentanyl/4mg IV Zofran Pt accepted by Dr. Fam at [facility] per nursing Counseled pt/family regarding: diagnosis, rad results - Departure Departure Disposition: Transfer Clinical Impression: Hip fracture, left Condition: Stable Critical Care Time: No Referrals: CONRADO VILLALTA MD [Primary Care Provider] - Follow up/PCP as directed Instructions: Hip Fracture (DC)
--- NOTE | 2021-06-17 08:49 | XRAY ---
Indication: Left-sided pain following fall. Multiple contiguous axial images obtained through the pelvis with special attention to the osseous structures. Sagittal and coronal reformatted images obtained. Comparison: March 27, 2021. Osseous structures again demonstrates osteopenia and right total hip arthroplasty with intact bipolar prosthesis. New nondisplaced left femur subcapital fracture. Stable degenerative changes of the visualized lower lumbar spine and SI joints. Visualized noncontrasted soft tissues again demonstrates colonic diverticulosis and diffuse scattered vascular calcifications. Impression: 1. New nondisplaced left femur subcapital fracture. 2. Again osteopenia, right hip arthroplasty, colonic diverticulosis, and scattered arteriosclerotic calcifications.
[2021-06-17] MEDS ORDERED: SUBLIMAZE 100 MCG/2 ML IV ONE (09:03)
[2021-06-17] MEDS ORDERED: Zofran 4 MG/2 ML VIAL IV ONE (09:03)
[2021-06-17] MEDS ORDERED: SUBLIMAZE 100 MCG/2 ML ONE (09:20)
[2021-06-17] MEDS ORDERED: Zofran 4 MG/2 ML VIAL ONE (09:20)
--- NOTE | 2021-06-17 09:32 | XRAY ---
Indication: Pain following fall. Comparison: None 2 view left lower leg demonstrates osteopenia, mild knee degenerative arthropathy, extensive scattered vascular calcifications, and ankle soft tissue swelling. No other bony, articular, or soft tissue abnormalities.
--- NOTE | 2021-06-17 09:32 | XRAY ---
Indication: Pain following fall. Comparison: None 2 view left femur demonstrates CT proven nondisplaced subcapital fracture. Elsewhere osteopenia, mild knee degenerative arthropathy, and extensive scattered vascular calcifications.
[2021-06-17 09:37] VITALS: BP 137/76; PULSE 86
[2021-06-17 09:51] VITALS: O2SAT 88
== END 2021-06-17 10:19 | disposition short-term general hospital (02) ==
LOC: ED 07:35
DX: S72.012A Unspecified intracapsular fracture of left femur, initial encounter for closed fracture (principal); W01.0XXA Fall on same level from slipping, tripping and stumbling without subsequent striking against object, initial encounter; S00.03XA Contusion of scalp, initial encounter; I10 Essential (primary) hypertension; Z86.711 Personal history of pulmonary embolism; Z79.01 Long term (current) use of anticoagulants; Z86.718 Personal history of other venous thrombosis and embolism; Z79.891 Long term (current) use of opiate analgesic; Z79.899 Other long term (current) drug therapy
CPT/HCPCS: 51702; 70450; 72192; 73552; 73590; 96374; 96375; 99284; J2405; J3010